=== PATIENT | female | born 1975 | race Caucasian/White ===

== ENCOUNTER → 2016-06-22 | Outpatient (CLI) | payer BC ==
[~2016-06-22] MED LIST: AMOX875T PO; CALC500C3 PO; DTR5 PO; HYDR-5688 PO; LACTCHW3 PO; MTR600X PO; OXYC-643 PO; PEDICHW50 PO; PHEN-1043 PO; POLY335019 PO; SULF800T23 PO
--- NOTE | 2016-06-22 13:54 | DIAGNOSTIC IMAGING REPORT ---
ABDOMINAL ULTRASOUND, RIGHT UPPER QUADRANT HISTORY: Right upper quadrant and epigastric abdominal pain.. COMPARISON: None. FINDINGS: Pancreas: The pancreas demonstrates a normal echotexture. Liver: Unremarkable. Gallbladder: Multiple small gallstones which almost completely fill the gallbladder. Gallbladder wall is normal in thickness. CBD: 6 mm. Right kidney: No hydronephrosis. IMPRESSION: Multiple gallstones. No gallbladder wall thickening. Electronically signed by: Rober Vazquez M.D. 06/22/2016 1:52 PM Dictated Date/Time: 06/22/2016 1:50 PM
== END | disposition home or self-care (01) ==
LOC: C.ULTR 13:16
PROVIDERS: ATTEND Family Medicine
DX: R10.13 Epigastric pain (principal); K80.20 Calculus of gallbladder without cholecystitis without obstruction

== ENCOUNTER 2016-07-05 14:59 | Emergency (ER) | payer BC ==
[~2016-07-05 14:59] MED LIST changes: -AMOX875T PO; -DTR5 PO; -HYDR-5688 PO; -LACTCHW3 PO; -PHEN-1043 PO; -POLY335019 PO; -SULF800T23 PO
[2016-07-05] MEDS ORDERED: SULF800T23 PO (16:15)
[2016-07-05] MEDS ORDERED: ONDANSETRON INJ 2 MG/ML 2 ML VIAL IV PRN (19:15)
[2016-07-05] MEDS ORDERED: TAMSULOSIN HCL 0.4 MG CAP PO ONE (19:15)
[2016-07-05] MEDS ORDERED: SODIUM CHLORIDE 0.9% 1000ML 1,000 ML IV SCH (19:15)
[2016-07-05] MEDS ORDERED: MoRPHine SULFATE 4 MG/ML 1 ML CARP\\VIAL IV PRN (19:15)
[2016-07-06] MEDS ORDERED: TAMSULOSIN HCL 0.4 MG CAP PO SCH (09:00)
[2016-07-08] MEDS ORDERED: HYDR-5688 PO (09:53)
[2016-07-08] MEDS ORDERED: DTR5 PO (09:53)
[2016-07-08] MEDS ORDERED: PHEN-1043 PO (09:53)
[2016-07-08] MEDS ORDERED: POLY335019 PO (09:53)
[2016-07-08] MEDS ORDERED: LACTCHW3 PO (09:53)
[2016-07-08] MEDS ORDERED: AMOX875T PO (09:53)
== END 2016-07-05 15:33 | disposition left against medical advice (07) ==
LOC: C.EDB 15:09
DX: N23 Unspecified renal colic (principal); R11.10 Vomiting, unspecified; R06.02 Shortness of breath; R39.9 Unspecified symptoms and signs involving the genitourinary system

== ENCOUNTER 2016-07-05 15:29 | Inpatient (IN) | payer BC ==
[~2016-07-05] VITALS: Ht 167.6 cm; Wt 95.8 kg
[2016-07-05] MEDS ORDERED: SODIUM CHLORIDE 0.9% 1000ML 1,000 ML IV STA (15:33)
[2016-07-05 16:04] LABS: BASO % 0.1 %; BASO ABS # 0.02 K/uL (0-0.2); COMPLETE YES; EOS % 0.4 %; HEMATOCRIT 38.2 % (37-47); IG% 0.3 %; LYMPH % 7.9 %; LYMPH ABS # 1.25 K/uL (1.2-3.4); MEAN CELL VOLUME 90.5 fL (80-100); MEAN CORPUSCULAR HEMOGLOBIN 30.8 pg (25-34); MEAN PLATELET VOLUME 11.1 fL (7.4-10.4); NEUT % 85.3 %; PLATELET COUNT 229 K/uL (130-400); RED BLOOD COUNT 4.22 M/uL (4.2-5.4); WHITE BLOOD COUNT 15.74 K/uL (4.8-10.8)
--- NOTE | 2016-07-05 16:13 | DIAGNOSTIC IMAGING REPORT ---
ABDOMEN AND PELVIS CT WITHOUT CONTRAST CT DOSE: 932.55 mGycm HISTORY: Flank pain left flank pain, vomiting TECHNIQUE: Multiaxial CT images of the abdomen and pelvis were performed without the use of intravenous and oral contrast according to the standard department stone protocol. COMPARISON STUDY: None. FINDINGS: Lung bases are clear. There is a 6 x 4 mm obstructing calculus proximal left ureter. There are mild left hydronephrosis changes. Right kidney is negative for hydronephrosis. Gallstones are present within the gallbladder lumen. Liver spleen pancreas are unremarkable. Bowel pattern is considered nonobstructive. Bladder is midline. Uterus is anteflexed. IMPRESSION: 6 x 4 mm obstructing proximal left ureteral calculus. Electronically signed by: Kirill Ivory M.D. 07/05/2016 4:12 PM Dictated Date/Time: 07/05/2016 4:09 PM
[2016-07-05] MEDS ORDERED: SULF800T23 PO (16:15)
[2016-07-05 16:29] LABS: CALCIUM 8.8 mg/dl (8.5-10.1); CREATININE 0.95 mg/dl (0.60-1.20); POTASSIUM 3.4 mmol/L (3.5-5.1)
[2016-07-05 16:31] LABS: ALB/GLOB RATIO 1.1 (0.9-2)
[2016-07-05 17:55] LABS: URINE APPEARANCE CLOUDY (CLEAR); URINE BILIRUBIN NEG (NEG); URINE COLOR DK YELLOW; URINE NITRITE NEG (NEG); URINE SPECIFIC GRAVITY 1.028 (1.000-1.030); UROBILINOGEN NEG (NEG); ZZUR CULT IF INDIC CLEAN CATCH YES
[2016-07-05 18:00] LABS: MANUAL MICROSCOPIC REQUIRED? NO; REVIEW REQ? NO
[2016-07-05] MEDS ORDERED: MoRPHine SULFATE 4 MG/ML 1 ML CARP\\VIAL IV STA (18:25)
[2016-07-05] MEDS ORDERED: CEFTRIAXONE SOD INJ 1 GM ADDVIAL IV STA (18:25)
[2016-07-05] MEDS ORDERED: POTASSIUM CHLORIDE 10 MEQ TABCR PO STA (19:26)
[2016-07-05] MEDS ORDERED: TAMSULOSIN HCL 0.4 MG CAP PO ONE (19:30)
[2016-07-05 19:47] VITALS: BP 111/76; PULSE 87; TEMP 36.7; O2SAT 99; Ht 167.6 cm; Wt 95.8 kg
[2016-07-05] MEDS: SODIUM CHLORIDE 0.9% 1000ML 1,000 ML IV SCH (21:08)
--- NOTE | 2016-07-05 21:51 | HISTORY & PHYSICAL EXAMINATION ---
DATE OF ADMISSION: 07/05/2016 CHIEF COMPLAINT: Left abdominal pain. HISTORY OF PRESENT ILLNESS: This is a 40-year-old female who comes to Emergency Room a second time today because of the significant abdominal pain. Yesterday evening, she started having this abdominal pain located at the left lower quadrant and today she came to Emergency Room first and then a second time because her pain was not well controlled. Recently she was started on Bactrim because of UTI which she was still taking up to today. She describes her pain as spasmodic, sharp, about 4/10, radiating down to her groin. REVIEW OF SYSTEMS: Negative except as above. Ten out of 14 systems were reviewed. PAST MEDICAL HISTORY: There is no past medical history. SOCIAL HISTORY: Does not smoke, does not drink, does not use drugs. FAMILY HISTORY: Coronary artery disease. PHYSICAL EXAMINATION: VITAL SIGNS: Temperature 36.7, pulse 69, respirations 14, blood pressure 111/62, 99% on room air. GENERAL: Not in acute distress. HEENT: Normocephalic, atraumatic. PERRLA, EOMI. Mouth moist, no lesions. NECK: No JVD. Trachea midline. Thyroid is not enlarged. LUNGS: Clear to auscultation bilateral. No wheezes, no rhonchi. HEART: S1, S2. RRR. ABDOMEN: Soft, tender to palpation in left lower quadrant. Bowel sounds present bilateral. SKIN: No rash. No jaundice. LYMPHATIC: No pathological lymphadenopathy. NEUROLOGICAL: Cranial nerves II-XII are intact. Motor sensory normal. EXTREMITIES: No clubbing, cyanosis or edema. LABS: White count of 15.7, otherwise normal CBC. BMP: Sodium 143, potassium 3.4, chloride 109, carbon dioxide 21, BUN 10, creatinine 0.9 with glucose of 105, otherwise AST, ALT normal. Urinalysis 3+ ketones, occult blood, moderate leukocyte esterase, more than 30 white blood cells and red blood cells, 5-10 epithelial cells with negative bacteria, negative urinary test. CT abdomen and pelvis showed 6 x 4 mm obstructing proximal left ureteral calculus. ASSESSMENT AND PLAN: This is a 40-year-old female who comes with ureter stone with significant abdominal pain. 1. A 6 x 4 mm obstructing proximal left ureteral calculus. Admit to general medical floor. Consult urology for possible stent placement tomorrow. Start normal saline 150 mL per hour, ketorolac 15 mg IV q. 6 hours p.r.n. pain, Zofran p.r.n. nausea. Start Flomax, ceftriaxone 1 g IV q. 24 hours. Strain urine. 2. Hypokalemia, replace potassium orally. 3. Deep venous thrombosis prophylaxis is not required. The patient is a full code. Time spent during this admission, 40 minutes.
[2016-07-05 23:09] VITALS: BP 87/55; PULSE 72; TEMP 36.8; O2SAT 98
[2016-07-05 23:10] VITALS: BP 80/46; PULSE 83
[2016-07-05 23:56] VITALS: BP 97/55
--- NOTE | 2016-07-06 01:21 | EMERGENCY ROOM VISIT NOTE ---
History First contact with patient: 15:31 Chief Complaint: KIDNEY STONE Stated Complaint: URETERAL STONE History of Present Illness The patient is a 40 year old female who presents to the Emergency Room with complaints of left flank pain which began suddenly early this morning. The patient was that she had a sudden onset of left back pain which radiated into her left flank starting this morning. She has had multiple episodes of vomiting. She rates the initial pain a 10/10. The patient had been waiting in the waiting room here for 2 hours, when she decided to see her primary care provider. She was there and was given 60 mg Toradol IM and sent here by ALS due to her discomfort. She received 4 mg Zofran IV and 10 mg morphine IV en route. She states that she was recently treated for a urinary tract infection. She denies any associated abdominal pain, urinary symptoms, chest pain, shortness of breath or changes in bowel movements. She denies any vaginal discharge or bleeding. She denies previous abdominal surgery. She states that her pain has completely resolved at this time. Review of Systems A complete 10-point Review of Systems was discussed with the patient, with pertinent positives and negatives listed in the History of Present Illness. All remaining Review of Systems questions can be considered negative unless otherwise specified. Past Medical/Surgical History Medical Problems: (1) Ureteral stone Social History Smoking Status: Current Every Day Smoker Current/Historical Medications Scheduled Sulfa/Trimethoprim (Bactrim Ds 800MG/160MG), 1 TAB PO BID Allergies Coded Allergies: No Known Allergies (Unverified , 07/05/16) Physical Exam Vital Signs Date Time Temp Pulse Resp B/P Pulse Ox O2 Delivery O2 Flow Rate FiO2 07/05/16 17:38 69 14 111/62 99 Room Air 07/05/16 15:41 36.7 84 17 131/71 100 Room Air Pain Rating (0-10): 3.0 Physical Exam VITALS: Vitals are noted on the nurse's note and reviewed by myself. Vital signs stable. GENERAL: This is a 40-year-old female, in no acute distress, nondiaphoretic, well-developed well-nourished. SKIN: Capillary reflex less than 2 seconds. HEENT: Normocephalic. PERRLA. EOMI. Nares patent. Mucous membranes moist. Neck is supple without nuchal rigidity. HEART: Regular rate and rhythm without murmurs gallops or rubs. LUNGS: Clear to auscultation bilaterally without wheezes, rales or rhonchi. No retractions or accessory muscle use. ABDOMEN: Positive bowel sounds x 4. Soft, nontender to palpation. MUSCULOSKELETAL: Mild left CVA tenderness. NEURO: Patient was alert and oriented to person place and time. Medical Decision & Procedures ER Provider Diagnostic Interpretation: ABDOMEN AND PELVIS CT WITHOUT CONTRAST CT DOSE: 932.55 mGycm HISTORY: Flank pain left flank pain, vomiting TECHNIQUE: Multiaxial CT images of the abdomen and pelvis were performed without the use of intravenous and oral contrast according to the standard department stone protocol. COMPARISON STUDY: None. FINDINGS: Lung bases are clear. There is a 6 x 4 mm obstructing calculus proximal left ureter. There are mild left hydronephrosis changes. Right kidney is negative for hydronephrosis. Gallstones are present within the gallbladder lumen. Liver spleen pancreas are unremarkable. Bowel pattern is considered nonobstructive. Bladder is midline. Uterus is anteflexed. IMPRESSION: 6 x 4 mm obstructing proximal left ureteral calculus. Laboratory Results 07/05/16 15:45 Red Blood Count 4.22, Mean Corpuscular Volume 90.5, Mean Corpuscular Hemoglobin 30.8, Mean Corpuscular Hemoglobin Concent 34.0, Mean Platelet Volume 11.1, Neutrophils (%) (Auto) 85.3, Lymphocytes (%) (Auto) 7.9, Monocytes (%) (Auto) 6.0, Eosinophils (%) (Auto) 0.4, Basophils (%) (Auto) 0.1, Neutrophils # (Auto) 13.42, Lymphocytes # (Auto) 1.25, Monocytes # (Auto) 0.95, Eosinophils # (Auto) 0.06, Basophils # (Auto) 0.02 07/05/16 15:45 Test 07/05/16 15:45 07/05/16 17:25 White Blood Count 15.74 K/uL (4.8-10.8) Red Blood Count 4.22 M/uL (4.2-5.4) Hemoglobin 13.0 g/dL (12.0-16.0) Hematocrit 38.2 % (37-47) Mean Corpuscular Volume 90.5 fL (80-100) Mean Corpuscular Hemoglobin 30.8 pg (25-34) Mean Corpuscular Hemoglobin Concent 34.0 g/dl (32-36) Platelet Count 229 K/uL (130-400) Mean Platelet Volume 11.1 fL (7.4-10.4) Neutrophils (%) (Auto) 85.3 % Lymphocytes (%) (Auto) 7.9 % Monocytes (%) (Auto) 6.0 % Eosinophils (%) (Auto) 0.4 % Basophils (%) (Auto) 0.1 % Neutrophils # (Auto) 13.42 K/uL (1.4-6.5) Lymphocytes # (Auto) 1.25 K/uL (1.2-3.4) Monocytes # (Auto) 0.95 K/uL (0.11-0.59) Eosinophils # (Auto) 0.06 K/uL (0-0.5) Basophils # (Auto) 0.02 K/uL (0-0.2) RDW Standard Deviation 46.2 fL (36.4-46.3) RDW Coefficient of Variation 13.8 % (11.5-14.5) Immature Granulocyte % (Auto) 0.3 % Immature Granulocyte # (Auto) 0.04 K/uL (0.00-0.02) Anion Gap 13.0 mmol/L (3-11) Est Creatinine Clear Calc Drug Dose 90.2 ml/min Estimated GFR () 87.4 Estimated GFR (Non- 75.4 BUN/Creatinine Ratio 11.0 (10-20) Calcium Level 8.8 mg/dl (8.5-10.1) Total Bilirubin 0.5 mg/dl (0.2-1) Aspartate Amino Transf (AST/SGOT) 8 U/L (15-37) Alanine Aminotransferase (ALT/SGPT) 21 U/L (12-78) Alkaline Phosphatase 81 U/L (45-117) Total Protein 7.1 gm/dl (6.4-8.2) Albumin 3.7 gm/dl (3.4-5.0) Globulin 3.4 gm/dl (2.5-4.0) Albumin/Globulin Ratio 1.1 (0.9-2) Lipase 137 U/L (73-393) Urine Color DK YELLOW Urine Appearance CLOUDY (CLEAR) Urine pH 6.0 (4.5-7.5) Urine Specific [place] 1.028 (1.000-1.030) Urine Protein 1+ (NEG) Urine Glucose (UA) NEG (NEG) Urine Ketones 3+ (NEG) Urine Occult Blood 3+ (NEG) Urine Nitrite NEG (NEG) Urine Bilirubin NEG (NEG) Urine Urobilinogen NEG (NEG) Urine Leukocyte Esterase MODERATE (NEG) Urine WBC (Auto) >30 /hpf (0-5) Urine RBC (Auto) >30 /hpf (0-4) Urine Hyaline Casts (Auto) 1-5 /lpf (0-5) Urine Epithelial Cells (Auto) 5-10 /lpf (0-5) Urine Bacteria (Auto) NEG (NEG) Urine Test NEG (NEG) Medications Administered Medications (Trade) Dose Ordered Sig/Omari Route Start Time Stop Time Status Last Admin Dose Admin Sodium Chloride (Nss 1000ml) 1,000 ml @ 999 mls/hr Q1H1M STAT IV 07/05/16 15:33 07/05/16 16:33 DC 07/05/16 15:47 999 MLS/HR Morphine Sulfate (MoRPHine SULFATE INJ) 4 mg NOW STAT IV 07/05/16 18:25 07/05/16 18:26 DC 07/05/16 18:30 4 MG Ceftriaxone Sodium (Rocephin Inj) 1 gm NOW STAT IV 07/05/16 18:25 07/05/16 18:26 DC 07/05/16 18:31 1 GM Medical Decision Differential diagnosis includes renal calculus, pyelonephritis, gastroenteritis , colitis, pancreatitis, musculoskeletal pain, herpes zoster, among others. The patient was evaluated as above. Labs were drawn and IV access was obtained. Imaging studies were performed and read by radiology as above. The patient was medicated as above. The patient was reassessed multiple times during their stay in the emergency department and remained in stable condition. The patient is a 40-year-old female who presents today complaining of left flank pain. Labs revealed a moderate leukocytosis consistent with vomiting. CT of the abdomen and pelvis did show an obstructing left ureteral stone with mild hydronephrosis. Urinalysis was possibly suggestive of infection, with the presence of leukocyte esterase and white blood cells. The patient was given 1 g Rocephin IV. Urine was negative. The patient was informed of all findings. Initially, she did prefer to be discharged home, but on reevaluation the patient's pain was returning and she requested admission for pain control. I do think this is reasonable given the size of the patient's stone and the amount of narcotics she has received so far. Case was discussed with the [facility], Dr. Reis, who agreed to evaluate the patient for admission. Impression Primary Impression: Left ureteral calculus Departure Information Dispostion Still a Patient Condition GOOD Referrals Seema MendozaPYovani (PCP) Forms HOME CARE DOCUMENTATION FORM, IMPORTANT VISIT INFORMATION Patient Instructions My [facility]
[2016-07-06] MEDS: ONDANSETRON INJ 2 MG/ML 2 ML VIAL IV PRN ×2 (03:04→20:02)
[2016-07-06] MEDS: KETOROLAC TROMETHAMINE 15 MG/ML VIAL IV PRN ×3 (03:04→21:12)
[2016-07-06] MEDS: SODIUM CHLORIDE 0.9% 1000ML 1,000 ML IV SCH ×4 (03:15→23:07)
[2016-07-06] MEDS: MoRPHine SULFATE 4 MG/ML 1 ML CARP\\VIAL IV PRN ×2 (04:35→07:58)
[2016-07-06 08:01] VITALS: BP 114/62; PULSE 83; TEMP 36.9; O2SAT 96
[2016-07-06 08:01] LABS: BASO % 0.1 %; BASO ABS # 0.01 K/uL (0-0.2); COMPLETE YES; EOS % 0.4 %; HEMATOCRIT 31.2 % (37-47); IG% 0.2 %; LYMPH % 10.9 %; LYMPH ABS # 1.15 K/uL (1.2-3.4); MEAN CELL VOLUME 91.2 fL (80-100); MEAN CORPUSCULAR HEMOGLOBIN 30.1 pg (25-34); MEAN PLATELET VOLUME 11.2 fL (7.4-10.4); NEUT % 78.4 %; PLATELET COUNT 180 K/uL (130-400); RED BLOOD COUNT 3.42 M/uL (4.2-5.4); WHITE BLOOD COUNT 10.56 K/uL (4.8-10.8)
--- NOTE | 2016-07-06 08:10 | Progress Note ---
Subjective Date of Service: Jul 06, 2016. Subjective Pt evaluation today including: conversation w/ patient, physical exam, chart review, lab review, review of studies, conversation w/ outplacement consultant, review of inpatient medication list Still complaining of saul pain, localized in the left side, 7 out of 10, need to frequent IV morphine, was having mild nausea , no fever and chill Problem List Medical Problems: (1) Left ureteral calculus Status: Acute Review of Systems Constitutional: No chills, No fatigue, No fever, No problem reported, No sweats , No weakness, No weight loss Eyes: No diplopia, No discharge, No eye pain, No redness, No worsening of vision ENT: No dental problems, No hearing loss, No nasal symptoms, No sore throat, No tinnitus, No trouble swallowing, No unusual epistaxis Respiratory: No cough, No dyspnea at rest, No dyspnea on exertion, No hemoptysis, No shortness of breath, No sputum, No wheezing Cardiac: No PND, No chest pain, No claudication, No edema, No orthopnea, No palpitations Abdomen: + nausea, + pain, No constipation, No diarrhea, No vomiting Musculoskeletal: No calf pain, No joint pain, No muscle pain, No swelling Female : No abnormal vaginal bleeding, No dysuria, No hematuria, No incontinence, No urinary frequency, No vaginal discharge Neurologic: No balance problems, No memory loss, No numbness/tingling, No paralysis, No vertigo, No weakness Psychiatric: No anhedonism, No anxiety, No depression symptoms, No insomnia, No substance abuse Heme: No abnormal bleeding/bruising, No clotting problems, No night sweats, No swollen lymph nodes Endo: No excessive thirst, No excessive urination, No fatigue Skin: No bleeding, No color change, No itch, No new/changing skin lesions, No rash Objective Vital Signs Date Time Temp Pulse Resp B/P Pulse Ox O2 Delivery O2 Flow Rate FiO2 07/06/16 08:01 36.9 83 15 114/62 96 Room Air 07/05/16 23:56 Room Air 07/05/16 23:56 97/55 07/05/16 23:10 83 80/46 07/05/16 23:09 36.8 72 15 87/55 98 Room Air 07/05/16 19:47 36.7 87 16 111/76 99 Room Air 07/05/16 19:39 87 16 111/76 99 Room Air 07/05/16 17:38 69 14 111/62 99 Room Air 07/05/16 15:41 36.7 84 17 131/71 100 Room Air Physical Exam General Appearance: WD/WN, no apparent distress, + obese Eyes: normal inspection, PERRL, EOMI, sclerae normal ENT: normal ENT inspection, hearing grossly normal, pharynx normal Neck: supple, no adenopathy, thyroid normal, no JVD, no carotid bruits, trachea midline Respiratory/Chest: chest non-tender, lungs clear, normal breath sounds, no respiratory distress, no accessory muscle use Cardiovascular: regular rate, rhythm, no edema, no gallop, no JVD, no murmur Abdomen: normal bowel sounds, soft, no organomegaly, no pulsatile mass, + tenderness (left flank) Extremities: normal range of motion, non-tender, normal inspection, no pedal edema, no calf tenderness, normal capillary refill, pelvis stable Neurologic/Psychiatric: 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, no motor/sensory deficits, alert, normal mood/affect, oriented x 3 Skin: normal color, warm/dry, no rash Lymphatic: no adenopathy Laboratory Results Last 24 Hours Test 07/05/16 15:45 07/05/16 17:25 07/06/16 07:35 White Blood Count 15.74 K/uL 10.56 K/uL Red Blood Count 4.22 M/uL 3.42 M/uL Hemoglobin 13.0 g/dL 10.3 g/dL Hematocrit 38.2 % 31.2 % Mean Corpuscular Volume 90.5 fL 91.2 fL Mean Corpuscular Hemoglobin 30.8 pg 30.1 pg Mean Corpuscular Hemoglobin Concent 34.0 g/dl 33.0 g/dl Platelet Count 229 K/uL 180 K/uL Mean Platelet Volume 11.1 fL 11.2 fL Neutrophils (%) (Auto) 85.3 % 78.4 % Lymphocytes (%) (Auto) 7.9 % 10.9 % Monocytes (%) (Auto) 6.0 % 10.0 % Eosinophils (%) (Auto) 0.4 % 0.4 % Basophils (%) (Auto) 0.1 % 0.1 % Neutrophils # (Auto) 13.42 K/uL 8.28 K/uL Lymphocytes # (Auto) 1.25 K/uL 1.15 K/uL Monocytes # (Auto) 0.95 K/uL 1.06 K/uL Eosinophils # (Auto) 0.06 K/uL 0.04 K/uL Basophils # (Auto) 0.02 K/uL 0.01 K/uL RDW Standard Deviation 46.2 fL 46.8 fL RDW Coefficient of Variation 13.8 % 14.0 % Immature Granulocyte % (Auto) 0.3 % 0.2 % Immature Granulocyte # (Auto) 0.04 K/uL 0.02 K/uL Sodium Level 143 mmol/L Potassium Level 3.4 mmol/L Chloride Level 109 mmol/L Carbon Dioxide Level 21 mmol/L Anion Gap 13.0 mmol/L Blood Urea Nitrogen 10 mg/dl Creatinine 0.95 mg/dl Est Creatinine Clear Calc Drug Dose 90.2 ml/min Estimated GFR () 87.4 Estimated GFR (Non- 75.4 BUN/Creatinine Ratio 11.0 Random Glucose 105 mg/dl Calcium Level 8.8 mg/dl Total Bilirubin 0.5 mg/dl Aspartate Amino Transf (AST/SGOT) 8 U/L Alanine Aminotransferase (ALT/SGPT) 21 U/L Alkaline Phosphatase 81 U/L Total Protein 7.1 gm/dl Albumin 3.7 gm/dl Globulin 3.4 gm/dl Albumin/Globulin Ratio 1.1 Lipase 137 U/L Urine Color DK YELLOW Urine Appearance CLOUDY Urine pH 6.0 Urine Specific [place] 1.028 Urine Protein 1+ Urine Glucose (UA) NEG Urine Ketones 3+ Urine Occult Blood 3+ Urine Nitrite NEG Urine Bilirubin NEG Urine Urobilinogen NEG Urine Leukocyte Esterase MODERATE Urine WBC (Auto) >30 /hpf Urine RBC (Auto) >30 /hpf Urine Hyaline Casts (Auto) 1-5 /lpf Urine Epithelial Cells (Auto) 5-10 /lpf Urine Bacteria (Auto) NEG Urine Test NEG Assessment and Plan 40-year-old female admitted on 07/05/2016 because of ureter stone with significant abdominal pain. A 6 x 4 mm obstructing proximal left ureteral calculus. Stable, Continue IV fluid, pain control, urology seeing patient, possible cystoscopy scope tomorrow Continue normal saline 150 mL per hour, ketorolac 15 mg IV q. 6 hours p.r.n. pain, Zofran p.r.n. nausea. Start Flomax, ceftriaxone 1 g IV q. 24 hours. Change morphine to 4 mg every 4 as needed for the pain Leukocytosis upon admission, no signs of SIRS/sepsis, is getting IV Rocephin, will continue for now, follow-up urine culture and sensitivity Hypokalemia, replace potassium orally, will follow-up lab Deep venous thrombosis prophylaxis will be SCD, we'll ordered heparin per duct because of her obesity, and now most of the time in bed full code. Continued [facility] stay due to: multiple IV medications needed Discharge planning: home
[2016-07-06 08:25] VITALS: O2SAT 96
[2016-07-06 08:34] LABS: BUN/CREATININE RATIO 10.9 (10-20); CALCIUM 7.7 mg/dl (8.5-10.1); CREATININE 1.2 mg/dl (0.60-1.20); POTASSIUM 3.7 mmol/L (3.5-5.1)
[2016-07-06] MEDS ORDERED: NURSING VERBAL MED ORDER ONE (08:45)
[2016-07-06] MEDS ORDERED: MoRPHine SULFATE 4 MG/ML 1 ML CARP\\VIAL IV PRN ×2 (09:00→12:00)
--- NOTE | 2016-07-06 09:13 | Urology Consultation ---
History General Date of Service: Jul 06, 2016. Chief Complaint: left ureteral stone Primary Care Physician: Seema Mendoza History of Present Illness 40 yo female admitted with left flank pain and n/v. CT scan shows a 7mm proximal left ureteral stone. She has no previous hx of stones. Her pain started yesterday at 0300 and was accompanied by n/v. She denies any f/ c with this. She thought she had the flu. Currently her pain is a 5-6/10 this AM. Denies n/v, dysuria, or hematuria currently. She is currently afebrile. White count has normalized overnight. Cr is normal. UC&S pending. Imaging Imaging: CT (7mm proximal left ureteral stone) Laboratory Last 24 Hours Test 07/05/16 15:45 07/05/16 17:25 07/06/16 07:35 07/06/16 08:38 White Blood Count 15.74 K/uL 10.56 K/uL Red Blood Count 4.22 M/uL 3.42 M/uL Hemoglobin 13.0 g/dL 10.3 g/dL Hematocrit 38.2 % 31.2 % Mean Corpuscular Volume 90.5 fL 91.2 fL Mean Corpuscular Hemoglobin 30.8 pg 30.1 pg Mean Corpuscular Hemoglobin Concent 34.0 g/dl 33.0 g/dl Platelet Count 229 K/uL 180 K/uL Mean Platelet Volume 11.1 fL 11.2 fL Neutrophils (%) (Auto) 85.3 % 78.4 % Lymphocytes (%) (Auto) 7.9 % 10.9 % Monocytes (%) (Auto) 6.0 % 10.0 % Eosinophils (%) (Auto) 0.4 % 0.4 % Basophils (%) (Auto) 0.1 % 0.1 % Neutrophils # (Auto) 13.42 K/uL 8.28 K/uL Lymphocytes # (Auto) 1.25 K/uL 1.15 K/uL Monocytes # (Auto) 0.95 K/uL 1.06 K/uL Eosinophils # (Auto) 0.06 K/uL 0.04 K/uL Basophils # (Auto) 0.02 K/uL 0.01 K/uL RDW Standard Deviation 46.2 fL 46.8 fL RDW Coefficient of Variation 13.8 % 14.0 % Immature Granulocyte % (Auto) 0.3 % 0.2 % Immature Granulocyte # (Auto) 0.04 K/uL 0.02 K/uL Sodium Level 143 mmol/L 143 mmol/L Potassium Level 3.4 mmol/L 3.7 mmol/L Chloride Level 109 mmol/L 114 mmol/L Carbon Dioxide Level 21 mmol/L 19 mmol/L Anion Gap 13.0 mmol/L 10.0 mmol/L Blood Urea Nitrogen 10 mg/dl 13 mg/dl Creatinine 0.95 mg/dl 1.20 mg/dl Est Creatinine Clear Calc Drug Dose 90.2 ml/min 71.4 ml/min Estimated GFR () 87.4 65.9 Estimated GFR (Non- 75.4 56.9 BUN/Creatinine Ratio 11.0 10.9 Random Glucose 105 mg/dl 97 mg/dl Calcium Level 8.8 mg/dl 7.7 mg/dl Total Bilirubin 0.5 mg/dl Aspartate Amino Transf (AST/SGOT) 8 U/L Alanine Aminotransferase (ALT/SGPT) 21 U/L Alkaline Phosphatase 81 U/L Total Protein 7.1 gm/dl Albumin 3.7 gm/dl Globulin 3.4 gm/dl Albumin/Globulin Ratio 1.1 Lipase 137 U/L Urine Color DK YELLOW Urine Appearance CLOUDY Urine pH 6.0 Urine Specific [place] 1.028 Urine Protein 1+ Urine Glucose (UA) NEG Urine Ketones 3+ Urine Occult Blood 3+ Urine Nitrite NEG Urine Bilirubin NEG Urine Urobilinogen NEG Urine Leukocyte Esterase MODERATE Urine WBC (Auto) >30 /hpf Urine RBC (Auto) >30 /hpf Urine Hyaline Casts (Auto) 1-5 /lpf Urine Epithelial Cells (Auto) 5-10 /lpf Urine Bacteria (Auto) NEG Urine Test NEG Problem List Medical Problems: (1) Left ureteral calculus Status: Acute Past History no pertinent history Past Surgical History: no surgical history Family History CAD Social History Hx Tobacco Use In Past Year?: No Smoking: non-smoker Alcohol: no current use Drug use: none Marital status: Housing status: lives with family Occupation status: employed Immunizations History of Influenza Vaccine: Unknown History of Tetanus Vaccine?: Yes Tetanus Immunization Date: Dec 16, 2012 Allergies Coded Allergies: No Known Allergies (Unverified , 07/05/16) Medications Home Medications: Home Meds and Scripts Medications Dose Route/Sig Max Daily Dose Days Date Category Dose Instructions Bactrim Ds 800MG/160MG (Trimethoprim/Sulfamethoxazole) Tab 1 Tab PO BID 07/05/16 Reported TAKE DIRECTED UNTIL GONE Inpatient Medications: Current Inpatient Medications Medications (Trade) Dose Ordered Sig/Omari Route Start Time Stop Time Status Last Admin Dose Admin Ondansetron HCl 4 mg 4 mg Q6H PRN IV 07/05/16 19:30 08/04/16 19:29 07/06/16 03:04 4 MG Sodium Chloride (Nss 1000ml) 1,000 ml @ 150 mls/hr Q6H40M IV 07/05/16 20:15 08/04/16 19:29 07/06/16 03:15 150 MLS/HR Tamsulosin HCl (Flomax Cap) 0.4 mg QAM PO 07/06/16 09:00 08/05/16 08:59 Ketorolac Tromethamine 15 mg 15 mg Q6H PRN IV 07/05/16 19:30 07/10/16 19:29 07/06/16 03:04 15 MG Ceftriaxone Sodium/Dextrose (Rocephin Inj/ Dextrose Add-[place] 50ML) 50 ml @ 100 mls/hr Q24H IV 07/06/16 18:00 07/15/16 17:59 Heparin Sodium (Porcine) (Heparin Sq 5000 Unit/0.5ml) 5,000 unit Q12 SQ 07/06/16 09:00 08/05/16 08:59 UNV Morphine Sulfate (MoRPHine SULFATE INJ) 4 mg Q4H PRN IV 07/06/16 09:00 07/20/16 08:59 Review of Systems Review of Systems Constitutional: No chills, No fever Eyes: No double vision Neurological: No dizzy Endocrine: No excessive thirst Gastrointestinal: + abdominal pain (left flank ), + see HPI, No nausea, No vomiting Cardiovascular: No chest pain Respiratory: No shortness of breath Skin: No rash Musculoskeletal: + back pain (left low back ) Female : No blood in urine, No painful urination Physical Exam Vital Signs: Vital Signs Past 12 Hours Date Time Temp Pulse Resp B/P Pulse Ox O2 Delivery O2 Flow Rate FiO2 07/06/16 08:37 Room Air 07/06/16 08:25 96 Room Air 07/06/16 08:01 36.9 83 15 114/62 96 Room Air 07/05/16 23:56 Room Air 07/05/16 23:56 97/55 07/05/16 23:10 83 80/46 07/05/16 23:09 36.8 72 15 87/55 98 Room Air Physical Exam: General Appearance: no apparent distress Eyes: bilateral eyes normal inspection ENT: hearing grossly normal Neck: no JVD Respiratory/Chest: no respiratory distress, no accessory muscle use Cardiovascular: no JVD Extremities: normal inspection Neurologic/Psychiatric: alert, normal mood/affect, oriented x 3 Skin: normal color Assessment & Plan Assessment & Plan Treatment Planned: cystoscopy w/ stent A/P: 7mm proximal left ureteral stone AFVSS. No evidence of sepsis requiring immediate intervention at this time. Continue supportive management with IVF, pain control, and Flomax. Will plan for OR tomorrow for cysto and left ureteral stent placement if pain persists. KUB and Labs in AM. Will provide a diet today. NPO after midnight. Strain all urine. Thanks for the consult. Will continue to follow along with primary service at this time.
[2016-07-06] MEDS: TAMSULOSIN HCL 0.4 MG CAP PO SCH (10:07)
[2016-07-06 10:10] LABS: PROTHROMBIN TIME (PATIENT) 10.7 SECONDS (9.0-12.0)
[2016-07-06] MEDS: HEPARIN SOD 5000 UNIT/0.5 ML CARP SQ SCH ×2 (12:12→20:05)
--- NOTE | 2016-07-06 14:04 | Anesthesiology Progress Note ---
Anesthesia Progress Note Date of Service Jul 06, 2016. Progress Notes 39 year old female. admitted with obstructing ureteral stone. Pt BMI 32, otherwise healthy. Anesthesia plan discussed with pt and at bedside. Denies further questions. INformed consent obtained.
[2016-07-06 15:49] VITALS: BP 88/53; PULSE 68; TEMP 37.2; O2SAT 98
[2016-07-06 16:30] VITALS: O2SAT 98
[2016-07-06] MEDS: CEFTRIAXONE SOD INJ 1 GM in DEXTROSE 5% ADD-VANTAGE 50ML 50 ML IV SCH (18:08)
[2016-07-06 23:40] VITALS: BP 97/62; PULSE 73; TEMP 37.1; O2SAT 98
[2016-07-07] MEDS: SODIUM CHLORIDE 0.9% 1000ML 1,000 ML IV SCH ×3 (05:30→20:25)
[2016-07-07] MEDS ORDERED: CIPROFLOXACIN 400MG / 200ML D5W IV SCH (06:00)
[2016-07-07] MEDS: HEPARIN SOD 5000 UNIT/0.5 ML CARP SQ SCH ×2 (07:05→21:03)
[2016-07-07 07:06] LABS: BASO % 0.1 %; BASO ABS # 0.01 K/uL (0-0.2); COMPLETE YES; EOS % 1.2 %; HEMATOCRIT 29.3 % (37-47); IG% 0.1 %; LYMPH ABS # 1.69 K/uL (1.2-3.4); MEAN CELL VOLUME 91.6 fL (80-100); MEAN CORPUSCULAR HEMOGLOBIN 30.6 pg (25-34); MEAN CORPUSCULAR HGB CONC 33.4 g/dl (32-36); MEAN PLATELET VOLUME 11.1 fL (7.4-10.4); MONO % 12.8 %; NEUT % 63.8 %; PLATELET COUNT 165 K/uL (130-400); WHITE BLOOD COUNT 7.68 K/uL (4.8-10.8)
[2016-07-07 07:30] VITALS: BP 109/62; PULSE 84; TEMP 36.8; O2SAT 98
[2016-07-07 07:31] LABS: BUN/CREATININE RATIO 9.6 (10-20); CALCIUM 7.7 mg/dl (8.5-10.1); CREATININE 1.2 mg/dl (0.60-1.20); POTASSIUM 3.8 mmol/L (3.5-5.1)
--- NOTE | 2016-07-07 07:32 | DIAGNOSTIC IMAGING REPORT ---
CHEST 2 VIEWS ROUTINE CLINICAL HISTORY: PRE-OP preoperative evaluation COMPARISON STUDY: No previous studies for comparison. FINDINGS: Atelectasis right base. Lungs otherwise are clear. Diaphragms smooth. IMPRESSION: Platelike atelectasis right base. Otherwise negative study Electronically signed by: Kirill Ivory M.D. 07/07/2016 7:31 AM Dictated Date/Time: 07/07/2016 7:30 AM
--- NOTE | 2016-07-07 07:38 | DIAGNOSTIC IMAGING REPORT ---
KUB CLINICAL HISTORY: left ureteral stone COMPARISON STUDY: No previous studies for comparison. FINDINGS: Curvilinear calcification measuring 6 mm. Bowel pattern is nonobstructive. No additional urinary tract calcifications are appreciated. Multiple pelvic vascular calcifications. IMPRESSION: 6 mm proximal left ureteral calculus. Electronically signed by: Kirill Ivory M.D. 07/07/2016 7:37 AM Dictated Date/Time: 07/07/2016 7:36 AM
[2016-07-07] MEDS: KETOROLAC TROMETHAMINE 15 MG/ML VIAL IV PRN (07:58)
[2016-07-07] MEDS: TAMSULOSIN HCL 0.4 MG CAP PO SCH (07:58)
[2016-07-07] MEDS: ONDANSETRON INJ 2 MG/ML 2 ML VIAL IV PRN (07:58)
--- NOTE | 2016-07-07 08:05 | Progress Note ---
Subjective Date of Service: Jul 07, 2016. Subjective Pt evaluation today including: conversation w/ patient, chart review, lab review Voiding: no voiding problems 40 yo female with proximal left ureteral stone. Left flank pain persists 11/05 this morning. Denies n/v, dysuria, or hematuria. UC&S preliminarily negative. Labs stable. Reviewed KUB this morning. Stone persists in the proximal ureter. Problem List Medical Problems: (1) Left ureteral calculus Status: Acute Review of Systems Constitutional: No chills, No fever Respiratory: No shortness of breath Cardiac: No chest pain Abdomen: + pain (left flank 11/05), + see HPI, No nausea, No vomiting Female : No dysuria, No hematuria Heme: No abnormal bleeding/bruising Objective Vital Signs Date Time Temp Pulse Resp B/P Pulse Ox O2 Delivery O2 Flow Rate FiO2 07/07/16 07:30 36.8 84 16 109/62 98 Room Air 07/06/16 23:40 37.1 73 14 97/62 98 Room Air 07/06/16 23:10 Room Air 07/06/16 16:30 98 Room Air 07/06/16 15:49 37.2 68 16 88/53 98 Room Air 07/06/16 08:37 Room Air 07/06/16 08:25 96 Room Air 07/06/16 08:01 36.9 83 15 114/62 96 Room Air Physical Exam General Appearance: no apparent distress Eyes: normal inspection ENT: hearing grossly normal Neck: no JVD Respiratory/Chest: no respiratory distress, no accessory muscle use Cardiovascular: no JVD Extremities: normal inspection Neurologic/Psychiatric: alert, normal mood/affect, oriented x 3 Skin: normal color Laboratory Results Last 24 Hours Test 07/06/16 09:40 07/07/16 06:46 Prothrombin Time 10.7 SECONDS Prothromb Time International Ratio 1.0 White Blood Count 7.68 K/uL Red Blood Count 3.20 M/uL Hemoglobin 9.8 g/dL Hematocrit 29.3 % Mean Corpuscular Volume 91.6 fL Mean Corpuscular Hemoglobin 30.6 pg Mean Corpuscular Hemoglobin Concent 33.4 g/dl Platelet Count 165 K/uL Mean Platelet Volume 11.1 fL Neutrophils (%) (Auto) 63.8 % Lymphocytes (%) (Auto) 22.0 % Monocytes (%) (Auto) 12.8 % Eosinophils (%) (Auto) 1.2 % Basophils (%) (Auto) 0.1 % Neutrophils # (Auto) 4.90 K/uL Lymphocytes # (Auto) 1.69 K/uL Monocytes # (Auto) 0.98 K/uL Eosinophils # (Auto) 0.09 K/uL Basophils # (Auto) 0.01 K/uL RDW Standard Deviation 46.9 fL RDW Coefficient of Variation 14.0 % Immature Granulocyte % (Auto) 0.1 % Immature Granulocyte # (Auto) 0.01 K/uL Sodium Level 145 mmol/L Potassium Level 3.8 mmol/L Chloride Level 117 mmol/L Carbon Dioxide Level 20 mmol/L Anion Gap 8.0 mmol/L Blood Urea Nitrogen 12 mg/dl Creatinine 1.20 mg/dl Est Creatinine Clear Calc Drug Dose 71.4 ml/min Estimated GFR () 65.9 Estimated GFR (Non- 56.9 BUN/Creatinine Ratio 9.6 Random Glucose 96 mg/dl Calcium Level 7.7 mg/dl Magnesium Level 2.0 mg/dl Assessment and Plan A/P: 6mm proximal left ureteral stone AFVSS. Pt with persistent pain. Recommend cysto with left ureteral stent placement. Risks and benefits of the procedure discussed with the pt. All questions answered. Pt agrees to the procedure at this time. Consent obtained. Stone persists on KUB. Will likely plan for outpatient ESWL for definitive management of stone after stent placement. Possible d/c home later this evening after stent placement vs tomorrow morning if she is doing well. Will continue to follow along with primary service at this time. Continued [facility] stay due to: multiple IV medications needed Discharge planning: home
--- NOTE | 2016-07-07 13:58 | Progress Note ---
Subjective Date of Service: Jul 07, 2016. Subjective Pt evaluation today including: conversation w/ patient, physical exam, chart review, lab review, review of studies, conversation w/ home care consultant, review of inpatient medication list Continue have persistent left flank pain, sometimes nausea, no fever and chill Problem List Medical Problems: (1) Left ureteral calculus Status: Acute Review of Systems Constitutional: No chills, No fatigue, No fever, No problem reported, No sweats , No weakness, No weight loss Eyes: No diplopia, No discharge, No eye pain, No redness, No worsening of vision ENT: No dental problems, No hearing loss, No nasal symptoms, No sore throat, No tinnitus, No trouble swallowing, No unusual epistaxis Respiratory: No cough, No dyspnea at rest, No dyspnea on exertion, No hemoptysis, No shortness of breath, No sputum, No wheezing Cardiac: No PND, No chest pain, No claudication, No edema, No orthopnea, No palpitations Abdomen: + pain, No constipation, No diarrhea, No nausea, No vomiting Musculoskeletal: No calf pain, No joint pain, No muscle pain, No swelling Female : No abnormal vaginal bleeding, No dysuria, No hematuria, No incontinence, No urinary frequency, No vaginal discharge Neurologic: No balance problems, No memory loss, No numbness/tingling, No paralysis, No vertigo, No weakness Psychiatric: No anhedonism, No anxiety, No depression symptoms, No insomnia, No substance abuse Heme: No abnormal bleeding/bruising, No clotting problems, No night sweats, No swollen lymph nodes Endo: No excessive thirst, No excessive urination, No fatigue Skin: No bleeding, No color change, No itch, No new/changing skin lesions, No rash Objective Vital Signs Date Time Temp Pulse Resp B/P Pulse Ox O2 Delivery O2 Flow Rate FiO2 07/07/16 07:30 Room Air 07/07/16 07:30 36.8 84 16 109/62 98 Room Air 07/06/16 23:40 37.1 73 14 97/62 98 Room Air 07/06/16 23:10 Room Air 07/06/16 16:30 98 Room Air 07/06/16 15:49 37.2 68 16 88/53 98 Room Air Physical Exam General Appearance: WD/WN, no apparent distress, + obese Eyes: normal inspection, PERRL, EOMI, sclerae normal ENT: normal ENT inspection, hearing grossly normal, pharynx normal Neck: supple, no adenopathy, thyroid normal, no JVD, no carotid bruits, trachea midline Respiratory/Chest: chest non-tender, lungs clear, normal breath sounds, no respiratory distress, no accessory muscle use Cardiovascular: regular rate, rhythm, no edema, no gallop, no JVD, no murmur Abdomen: normal bowel sounds, soft, no organomegaly, no pulsatile mass, + tenderness (left flank area) Extremities: normal range of motion, non-tender, normal inspection, no pedal edema, no calf tenderness, normal capillary refill, pelvis stable Neurologic/Psychiatric: manager bench II-XII nml as tested, no motor/sensory deficits, alert, normal mood/affect, oriented x 3 Skin: normal color, warm/dry, no rash Lymphatic: no adenopathy Laboratory Results Last 24 Hours Test 07/07/16 06:46 White Blood Count 7.68 K/uL Red Blood Count 3.20 M/uL Hemoglobin 9.8 g/dL Hematocrit 29.3 % Mean Corpuscular Volume 91.6 fL Mean Corpuscular Hemoglobin 30.6 pg Mean Corpuscular Hemoglobin Concent 33.4 g/dl Platelet Count 165 K/uL Mean Platelet Volume 11.1 fL Neutrophils (%) (Auto) 63.8 % Lymphocytes (%) (Auto) 22.0 % Monocytes (%) (Auto) 12.8 % Eosinophils (%) (Auto) 1.2 % Basophils (%) (Auto) 0.1 % Neutrophils # (Auto) 4.90 K/uL Lymphocytes # (Auto) 1.69 K/uL Monocytes # (Auto) 0.98 K/uL Eosinophils # (Auto) 0.09 K/uL Basophils # (Auto) 0.01 K/uL RDW Standard Deviation 46.9 fL RDW Coefficient of Variation 14.0 % Immature Granulocyte % (Auto) 0.1 % Immature Granulocyte # (Auto) 0.01 K/uL Sodium Level 145 mmol/L Potassium Level 3.8 mmol/L Chloride Level 117 mmol/L Carbon Dioxide Level 20 mmol/L Anion Gap 8.0 mmol/L Blood Urea Nitrogen 12 mg/dl Creatinine 1.20 mg/dl Est Creatinine Clear Calc Drug Dose 71.4 ml/min Estimated GFR () 65.9 Estimated GFR (Non- 56.9 BUN/Creatinine Ratio 9.6 Random Glucose 96 mg/dl Calcium Level 7.7 mg/dl Magnesium Level 2.0 mg/dl Assessment and Plan 40-year-old female admitted on 07/05/2016 because of ureter stone with significant abdominal pain. A 6 x 4 mm obstructing proximal left ureteral calculus. Continue with persistent pain. recommend cysto with left ureteral stent placement. would do procedure today Stone persists on KUB. Will likely plan for outpatient ESWL for definitive management of stone after stent placement. Possible d/c home later this evening after stent placement vs tomorrow morning if she is doing well. Continue IV fluid, pain control, Continue normal saline 150 mL per hour, ketorolac 15 mg IV q. 6 hours p.r.n. pain, Zofran p.r.n. nausea. Start Flomax, ceftriaxone 1 g IV q. 24 hours. Change morphine to 4 mg every 4 as needed for the pain Leukocytosis upon admission, no signs of SIRS/sepsis, is getting IV Rocephin, will continue for now, follow-up urine culture and sensitivity Hypokalemia, replace potassium orally, will follow-up lab Deep venous thrombosis prophylaxis will be SCD, we'll ordered heparin per duct because of her obesity, and now most of the time in bed full code. Continued [facility] stay due to: multiple IV medications needed Discharge planning: home
[2016-07-07 14:58] VITALS: BP 111/75; PULSE 61; TEMP 37; O2SAT 98
[2016-07-07] MEDS ORDERED: ONDANSETRON INJ 2 MG/ML 2 ML VIAL IV PRN (15:00)
[2016-07-07] MEDS ORDERED: ATROPINE SULFATE 0.1 MG/ML 5ML SYR IV PRN (15:00)
[2016-07-07] MEDS ORDERED: FENTANYL CITRATE INJ 50 MCG/1 ML 2 ML VIAL IV PRN (15:00)
[2016-07-07] MEDS ORDERED: EpHEDrine SULFATE INJ 50 MG/ML AMP IV PRN (15:00)
[2016-07-07] MEDS ORDERED: LIDOCAINE HCL 2% 2 ML VIAL (20MG/ML) ONE (16:32)
[2016-07-07] MEDS ORDERED: DEXAMETHASONE SOD INJ 4 MG/ML VIAL ONE (16:32)
[2016-07-07] MEDS ORDERED: ONDANSETRON INJ 2 MG/ML 2 ML VIAL ONE (16:32)
[2016-07-07] MEDS ORDERED: PROPOFOL IV EMULSION 10 MG/ML 20 ML VIAL IV ONE (16:32)
[2016-07-07] MEDS ORDERED: FENTANYL CITRATE INJ 50 MCG/1 ML 2 ML VIAL ONE ×2 (16:32→17:38)
[2016-07-07] MEDS ORDERED: MIDAZOLAM HCL 1 MG/ML 2ML VIAL ONE (16:32)
[2016-07-07] MEDS: CEFTRIAXONE SOD INJ 1 GM in DEXTROSE 5% ADD-VANTAGE 50ML 50 ML IV SCH ×2 (18:00→19:18)
[2016-07-07] MEDS ORDERED: CONRAY 30% 150ML BOTTLE INSTIL ONE (18:00)
--- NOTE | 2016-07-07 18:10 | [facility] Post Operative Brief Note ---
Immediate Operative Summary Operative Date Jul 07, 2016. Pre-Operative Diagnosis Left proximal ureteral calculus, intractable renal colic Post-Operative Diagnosis Same Procedure(s) Performed Cystoscopy, left retrograde pyelography, left flexible ureteroscopy, laser lithotripsy, basket stone extraction, placement left ureteral stent Surgeon Dr. Josh Barba [employer] Layout Designer Surgeon(s) NA Estimated Blood Loss 0 ml Findings Good stone fragmentation and stent position on fluoro, no large residual fragments or ureteral injury Specimens #1. bladder urine for C&S, aerobic and anaerbic and gram stain. A. left ureteral stones for analysis Drains 6 fr 26 cm L loop stent Anesthesia [facility] Complication(s) None Disposition Recovery Room / PACU (Stable for discharge home from urologic perspective)
[2016-07-07] MEDS ORDERED: HYDROmorphone INJ 1 MG/ML SYR IV PRN (18:15)
[2016-07-07] MEDS ORDERED: OXYCODONE/ACETAMINOPHEN 5-325 TAB PO PRN ×2 (18:15)
[2016-07-07] MEDS ORDERED: PHENAZOPYRIDINE HCL 200 MG TAB PO PRN (18:15)
[2016-07-07] MEDS ORDERED: OXYBUTYNIN CHLORIDE 5 MG TAB PO PRN (18:15)
--- NOTE | 2016-07-07 18:19 | DIAGNOSTIC IMAGING REPORT ---
INTRAOPERATIVE RADIOGRAPHS CLINICAL HISTORY: Left-sided laser lithotripsy and stent placement. Fluoroscopy time: 66 seconds. FINDINGS: 5 spot fluoroscopic views of the left abdomen are correlated with abdominal CT dated 07/05/2016. The initial images shown an obstructing calculus in the left proximal ureter with associated hydronephrosis. The final image shows the proximal end of a left ureteral stent being deployed. IMPRESSION: Intraoperative images from a left-sided lithotripsy and ureteral stent placement procedure. See operative report for detailed findings. Electronically signed by: Elie Molina M.D. 07/07/2016 6:18 PM Dictated Date/Time: 07/07/2016 6:16 PM
[2016-07-07] MEDS ORDERED: NURSING VERBAL MED ORDER ONE ×3 (18:50→19:20)
[2016-07-07] MEDS ORDERED: ACETAMINOPHEN 1000 MG/100 ML IV IV ONE (18:51)
[2016-07-07] MEDS ORDERED: MEPERIDINE HCL 25 MG/ML CARP ONE (18:52)
[2016-07-07] MEDS ORDERED: METOCLOPRAMIDE HCL INJ 5 MG/ML 2 ML VIAL ONE (19:22)
--- NOTE | 2016-07-07 19:28 | Anesthesiology Progress Note ---
Anesthesia Post Op Note Date & Time Jul 07, 2016 at 19:28 Vital Signs Pain Intensity: 0 Vital Signs Past 12 Hours Date Time Temp Pulse Resp B/P Pulse Ox O2 Delivery O2 Flow Rate FiO2 07/07/16 19:03 139/80 07/07/16 19:00 87 25 100 07/07/16 19:00 87 25 07/07/16 18:57 149/97 07/07/16 18:55 105 26 100 07/07/16 18:55 105 26 07/07/16 18:54 161/124 07/07/16 18:50 158 30 07/07/16 18:50 157 30 90 07/07/16 18:47 160/143 07/07/16 18:45 146 24 93 07/07/16 18:45 147 24 07/07/16 18:40 144 18 92 07/07/16 18:40 143 18 07/07/16 18:38 154/106 07/07/16 18:35 105 22 91 07/07/16 18:35 103 22 07/07/16 18:33 133/84 07/07/16 18:30 83 22 94 07/07/16 18:30 82 22 07/07/16 18:28 130/79 07/07/16 18:25 74 22 07/07/16 18:25 75 22 98 07/07/16 18:23 124/71 07/07/16 18:20 75 20 07/07/16 18:20 76 20 100 07/07/16 18:18 122/74 07/07/16 18:15 82 20 99 07/07/16 18:15 80 20 07/07/16 18:13 112/69 07/07/16 18:10 85 17 100 07/07/16 18:10 85 17 07/07/16 18:10 36.5 95 18 114/73 100 Mask 10 07/07/16 14:58 37.0 61 16 111/75 98 Room Air 07/07/16 07:30 Room Air 07/07/16 07:30 36.8 84 16 109/62 98 Room Air Notes Mental Status: alert / awake / arousable, participated in evaluation Pt Amnestic to Procedure: Yes Nausea / Vomiting: adequately controlled Pain: adequately controlled Airway Patency, RR, SpO2: stable & adequate BP & HR: stable & adequate Hydration State: stable & adequate Anesthetic Complications: no major complications apparent see anesthesia progress note for more detail
--- NOTE | 2016-07-07 19:34 | Anesthesiology Progress Note ---
Anesthesia Progress Note Date of Service Jul 07, 2016. Progress Notes Pt is a 40F s/p L cysto, laser litho, basket stone extraction. Pt was without complications intra-operatively. During her PACU stay, pt developed chills, rigors, tachycardia (HR 140s-150s), and hyperthermia (37.7 celsius). Pt was likely showing signs of bacteremia. The pt was given meperidine 25mg IV, acetaminophen 1mg IV, and O2 via facemask. Within a few minutes, the pt's HR normalized and her rigors subsided. I spoke with Dr. Barba, and we were in agreement that the pt should be transferred to PCU for closer monitoring overnight. The pt was otherwise stable without further complaints and stable to be discharged.
--- NOTE | 2016-07-07 19:43 | OPERATIVE REPORT ---
DATE OF OPERATION: 07/07/2016 PREOPERATIVE DIAGNOSIS: Left proximal ureteral stone with intractable renal colic. POSTOPERATIVE DIAGNOSIS: Same. PROCEDURES: Cystoscopy, left retrograde pyelography, left flexible ureteroscopy with laser lithotripsy, stone extraction, and ureteral stent placement. SURGEON: Dr. Josh Barba. CERTIFIED HOME HEALTH AIDE: None. ANESTHESIA: General anesthesia with laryngeal mask. COMPLICATIONS: Chills and tachycardia in recovery. ESTIMATED BLOOD LOSS: Zero. SPECIMENS SENT TO PATHOLOGY: Bladder for urine culture and sensitivity after left wire placement and left ureteral stone fragments for analysis. FINDINGS: Good stone fragmentation and stent position on fluoroscopy, no large residual stone fragments noted or ureteral injury. DRAINS LEFT IN PLACE: Include a 6-[place] 26 cm, left-sided loop ureteral stent. BRIEF HISTORY: Ms. Rodriguez is a 40-year-old female admitted to [facility] on 07/05/2016 for left-sided flank pain. She continues to have intractable pain and on CT scan imaging, she has a 6-7 mm left-sided proximal ureteral stent with hydronephrosis. After discussion of risks and benefits of various forms of intervention, she has decided upon endoscopic management with possible laser lithotripsy to manage her disease. She has been covered with cephalosporins as an inpatient and additional ciprofloxacin was provided prior to OR. Please see urology consultation and progress notes for further details. She was then brought to the operating room for this purpose. SCDs are present on both lower extremities for DVT prophylaxis. PROCEDURE IN DETAIL: The patient was properly identified and brought to the operative suite. After identification of appropriate consent on the chart, general anesthesia with laryngeal mask was initiated. The patient was prepped and draped in standard fashion for this procedure. multimedia editor-out procedure was followed. A 22-[place] rigid cystoscope was passed into the bladder under direct visualization and bladder was surveyed in its entirety, demonstrating no intravesical lesions, papillary masses, or calculi. Ureteral orifices were noted in the normal anatomic location and right-sided ureteral orifice was noted to be effluxing clear yellow urine. Gentle retrograde pyelography was performed on the left hand side, demonstrating a normal distal and mid ureter up to the level of the calcification in the left upper quadrant, consistent with the patient's stone. Dilation of the collecting system proximally was present, consistent with hydronephrosis and ureteral stone. Sensor tip wire was advanced up to the level of the left renal pelvis and kept until end of the case as a safety wire. A small amount of dark cloudy urine transiently passed from the left side, felt to be possibly consistent with old blood behind the patient's stone. After the placement of wire, an aliquot of urine was sent for culture and sensitivity. Seeing the patient's normal white count and previous contaminated urine specimen with no uropathogens, decision was made to continue with ureteroscopy. A second Amplatz Superstiff wire was advanced as a working wire and a 12/14 28 cm ureteral access sheath was advanced into the mid ureter without difficulties or resistance. Flexible ureteroscope was advanced up to the level of the stone which was visualized within the ureteral lumen. This was fragmented in smaller pieces using a 200 micron fiber and pieces were grasped and removed from the patient using an open-ended basket as appropriate. These were sent for chemical analysis. Some of the stone was noted to be retropulsed within the kidney and this was followed, fragmented and removed until no large fragments of stone were present. No significant inflammation and minimal cloudy urine was present within the kidney. Low irrigation pressures were kept throughout the case with free drainage through the ureteral access sheath. After this was complete, a complete pyeloscopy was performed, demonstrating no residual large intrarenal stones. Complete exit ureteroscopy including removal of the scope was performed, demonstrating no ureteral tears, injuries or other retained stone fragments. Cystoscope was backloaded over the safety wire and a 6-[place] 26 cm loop ureteral stent was advanced with the stent being present within the renal pelvis and full loops present within the bladder. Bladder was drained and cystoscope was removed, anesthesia was reversed. The patient was transferred to recovery room in stable condition. FOLLOWUP CARE: The patient will be readmitted to the medical service with advancement of diet. Pain medication and antispasmodics provided. The patient should be considered stable for discharge home from urologic perspective as long as she is comfortable in the postoperative period. Addendum: In recovery patient noted to have chills and tachycardia, transient. Unclear if this represented partially treated bacteremia. Per anesthesia recommendation patient admitted to monitored bed postop for closer observation. I attest to the content of the Intraoperative Record and any orders documented therein. Any exceptions are noted below. GEOFF
[2016-07-07 19:50] VITALS: BP 138/70; PULSE 86; TEMP 37; O2SAT 96
[2016-07-07] MEDS: DOCUSATE SODIUM 100 MG CAP PO SCH (20:59)
[2016-07-07 23:42] VITALS: BP 142/77; PULSE 67; TEMP 36.6; O2SAT 97
[2016-07-08 03:28] VITALS: BP 128/65; PULSE 47; TEMP 36.4; O2SAT 96
[2016-07-08 07:14] LABS: BUN/CREATININE RATIO 9.1 (10-20); CALCIUM 7.7 mg/dl (8.5-10.1); CREATININE 0.91 mg/dl (0.60-1.20); MAGNESIUM 1.8 mg/dl (1.8-2.4); POTASSIUM 3.7 mmol/L (3.5-5.1)
[2016-07-08] MEDS: DOCUSATE SODIUM 100 MG CAP PO SCH (08:00)
[2016-07-08] MEDS: TAMSULOSIN HCL 0.4 MG CAP PO SCH (08:01)
[2016-07-08 08:04] VITALS: BP 157/88; PULSE 68; TEMP 36.8; O2SAT 96
[2016-07-08] MEDS: HEPARIN SOD 5000 UNIT/0.5 ML CARP SQ SCH (08:05)
--- NOTE | 2016-07-08 08:55 | Progress Note ---
Subjective Date of Service: Jul 08, 2016. Subjective Pt evaluation today including: conversation w/ patient, physical exam, chart review, lab review, review of inpatient medication list Pain: Stent irritation PO Intake: Willie reg diet Voiding: no voiding problems 40 yo female POD#1 s/p laser litho, feels much improved this AM. On telemetry due to bout of tachycardia and chills last PM, not repeated since. She notes mild stent irritation, improved with Pyridium. Intraop findings and images reviewed. Problem List Medical Problems: (1) Left ureteral calculus Status: Acute Review of Systems Constitutional: No chills (improved since postop), No fever Eyes: No worsening of vision ENT: No hearing loss Respiratory: No shortness of breath Cardiac: No chest pain Abdomen: No nausea, No vomiting Female : + see HPI, + urinary frequency Neurologic: No memory loss Psychiatric: No depression symptoms Heme: No clotting problems Endo: + excessive urination Skin: No new/changing skin lesions Objective Vital Signs Date Time Temp Pulse Resp B/P Pulse Ox O2 Delivery O2 Flow Rate FiO2 07/08/16 08:04 36.8 68 18 157/88 96 07/08/16 04:00 Room Air 07/08/16 03:28 36.4 47 16 128/65 96 Room Air 07/07/16 23:59 Room Air 07/07/16 23:42 36.6 67 22 142/77 97 Room Air 07/07/16 20:00 Room Air 07/07/16 19:50 37.0 86 22 138/70 96 Nasal Cannula 2.0 07/07/16 19:40 87 28 07/07/16 19:40 85 28 93 07/07/16 19:38 131/72 07/07/16 19:35 87 28 07/07/16 19:35 88 28 95 07/07/16 19:33 128/79 07/07/16 19:32 37.7 07/07/16 19:30 91 28 97 07/07/16 19:30 91 28 07/07/16 19:29 93 23 98 07/07/16 19:29 93 23 07/07/16 19:28 130/76 07/07/16 19:24 89 27 07/07/16 19:24 90 27 97 07/07/16 19:23 140/79 07/07/16 19:19 93 26 07/07/16 19:19 93 26 95 07/07/16 19:18 135/88 07/07/16 19:14 88 30 98 07/07/16 19:14 89 30 07/07/16 19:13 141/83 07/07/16 19:09 91 30 07/07/16 19:09 91 30 100 07/07/16 19:08 140/95 07/07/16 19:04 87 32 100 07/07/16 19:04 85 32 07/07/16 19:03 139/80 07/07/16 19:00 87 25 100 07/07/16 19:00 87 25 07/07/16 18:57 149/97 07/07/16 18:55 105 26 100 07/07/16 18:55 105 26 07/07/16 18:54 161/124 07/07/16 18:50 158 30 07/07/16 18:50 157 30 90 07/07/16 18:47 160/143 07/07/16 18:45 146 24 93 07/07/16 18:45 147 24 07/07/16 18:40 144 18 92 07/07/16 18:40 143 18 07/07/16 18:38 154/106 07/07/16 18:35 105 22 91 07/07/16 18:35 103 22 07/07/16 18:33 133/84 07/07/16 18:30 83 22 94 07/07/16 18:30 82 22 07/07/16 18:28 130/79 07/07/16 18:25 74 22 07/07/16 18:25 75 22 98 07/07/16 18:23 124/71 07/07/16 18:20 75 20 07/07/16 18:20 76 20 100 07/07/16 18:18 122/74 07/07/16 18:15 82 20 99 07/07/16 18:15 80 20 07/07/16 18:13 112/69 07/07/16 18:10 85 17 100 07/07/16 18:10 85 17 07/07/16 18:10 36.5 95 18 114/73 100 Mask 10 07/07/16 14:58 37.0 61 16 111/75 98 Room Air Physical Exam General Appearance: WD/WN, no apparent distress ENT: hearing grossly normal Neck: supple, no adenopathy Respiratory/Chest: no respiratory distress, no accessory muscle use Cardiovascular: no JVD Abdomen: non tender, soft Extremities: non-tender Neurologic/Psychiatric: alert, oriented x 3 Laboratory Results Last 24 Hours Test 07/08/16 06:05 Sodium Level 143 mmol/L Potassium Level 3.7 mmol/L Chloride Level 114 mmol/L Carbon Dioxide Level 20 mmol/L Anion Gap 9.0 mmol/L Blood Urea Nitrogen 8 mg/dl Creatinine 0.91 mg/dl Est Creatinine Clear Calc Drug Dose 96.8 ml/min Estimated GFR () 92.1 Estimated GFR (Non- 79.5 BUN/Creatinine Ratio 9.1 Random Glucose 116 mg/dl Calcium Level 7.7 mg/dl Magnesium Level 1.8 mg/dl Assessment and Plan A/P 40 yo female POD#1 s/p laser litho, stent. Much improved. Should be stable for DC home today. Would cover with 10-14 days of antibiotics, provide oral pain meds, Pyridium and oxybutynin PRN bladder spasms. Will arrange for outpatient cysto, stent removal after KUB - can call office for timing. Contact our service as needed for any postop queries. Thank you for allowing us to participate in this patient's care, please recall our service PRN new questions or concerns. Continued [facility] stay due to: multiple IV medications needed Discharge planning: home
[2016-07-08] MEDS ORDERED: PHEN-1043 PO (09:53)
[2016-07-08] MEDS ORDERED: POLY335019 PO (09:53)
[2016-07-08] MEDS ORDERED: HYDR-5688 PO (09:53)
[2016-07-08] MEDS ORDERED: AMOX875T PO (09:53)
[2016-07-08] MEDS ORDERED: LACTCHW3 PO (09:53)
[2016-07-08] MEDS ORDERED: DTR5 PO (09:53)
--- NOTE | 2016-07-08 10:05 | Discharge Instructions ---
Discharge Instructions Admission Reason for Admission: Ureteral Stone Discharge Discharge Diagnosis / Problem: Kidney stone on left - removal by way of laser. Stent placement. Discharge Goals Goal(s): Learn about illness, Diagnostic testing, Therapeutic intervention Activity Recommendations Activity Limitations: as noted below Lifting Limitations: no more than 10 pounds Exercise/Sports Limitations: until after follow-up appointment Driving or Machine Use: no limitations (as long as you are not using pain medication ) Over the next 1-2 weeks would recommend light activity only. Would avoid going to the gym, heavy lifting over 10-15 pounds, etc. . Instructions / Follow-Up Instructions / Follow-Up From Dr. Avila - 1. For your urinary tract infection - * take augmentin twice daily for 7 days; begin this today * take lactinex (probiotics) twice a day for 7 days; begin this today 2. For bladder pain/spasm - * may take norco (hydrocodone with tylenol) every 6 hours as needed * may take oxybutinin up to twice a day as needed for bladder pain * may take pyridium up to three times a day as needed for bladder pain * the pyridium may make your urine or tears orange in color * do not take any [id number] tylenol if you are using the hydrocodone 3. For constipation - * take jpsb-qus-qtaqiya miralax once daily * you may also need a second agent such as senna or dulcolax 4. Appointments - * please see Dr. Barba, urology, within 2 weeks for stent removal * please see your family doctor early to mid next week 5. Keep your appointment with the surgeon for your gall bladder. 6. If you experience fever > 100.5 degrees, worsening abdominal pain, vomiting , painful urination, etc - please contact your family doctor or Dr. Barba's office right away. Current Hospital Diet Patient's current hospital diet: Regular Diet Discharge Diet Recommended Diet: Regular Diet Procedures Procedures Performed: Cystoscopy, left retrograde pyelography, left flexible ureteroscopy, laser lithotripsy, basket stone extraction, placement left ureteral stent Pending Studies Studies pending at discharge: no Medical Emergencies . Who to Call and When: Medical Emergencies: If at any time you feel your situation is an emergency, please call 911 immediately. . Non-Emergent Contact Non-Emergency issues call your: Urologist Call Non-Emergent contact if: temperature is above 100.5, your pain is not controlled, your pain is worsening, your pain is unusual for you, your pain is concerning you, you have any medication questions . . "Provider Documentation" section prepared by Eliud Avila. VTE Core Measure Inpt VTE Proph given/why not?: SCD's
[2016-07-08 10:30] VITALS: BP 157/88; PULSE 68; TEMP 36.8; O2SAT 96
--- NOTE | 2016-07-08 18:37 | Discharge Summary ---
Discharge Summary Admission Date: Jul 05, 2016 at 19:24 Discharge Date: Jul 08, 2016 Discharge Disposition: Home Principal Diagnosis: left-sided ureteral stone, s/p laser lithotripsy & stent placement Problems/Secondary Diagnoses: UTI hypokalemia - resolved Immunizations: Have You Had Influenza Vaccine: Unknown History of Tetanus Vaccine?: Yes Tetanus Immunization Date: Dec 16, 2012 Procedures: 1. Cystoscopy, left retrograde pyelography, left flexible ureteroscopy with laser lithotripsy, stone extraction, and ureteral stent placement - Josh Barba MD 2. CT abd/pelvis - IMPRESSION: 6 x 4 mm obstructing proximal left ureteral calculus. Consultations: urology - Josh Barba MD Medication Reconciliation New Medications: Amoxicillin & Pot Clavulanate (Augmentin 875-125 mg) 1 Tab Tab 875 MG PO BID for 7 Days, #14 TAB 0 Refills Hydrocodone/Acetaminophen 5MG/325MG ([place] 5MG/325MG) Tab 1 TABLET PO Q6H PRN for Pain, #15 TAB 0 Refills Lactobacillus (Lactinex) Chw 4 TAB PO BID for 7 Days, #56 CHW 0 Refills Polyethylene Glycol 3350 (Miralax) 1 Pow Pow 17 GM PO DAILY, #527 GM 0 Refills Oxybutynin Chloride (Oxybutynin Chloride) 5 Mg Tab 5 MG PO BID PRN for Bladder pain for 14 Days, #28 TAB 0 Refills Phenazopyridine HCl (Phenazopyridine HCl) 200 Mg Tab 200 MG PO TID PRN for Bladder pain for 5 Days, #15 TAB may make tears or urine orange in color Discontinued Medications: Sulfa/Trimethoprim (Bactrim Ds 800MG/160MG) Tab 1 TAB PO BID, TAB TAKE DIRECTED UNTIL GONE Referrals At Discharge Follow up Referrals: Urologist Referral - Within 2 Weeks with Josh Barba MD, Urology Discharge Exam Physical Exam: General Appearance: WD/WN, no apparent distress ENT: pharynx normal Neck: no JVD Respiratory/Chest: lungs clear, no respiratory distress, no accessory muscle use Cardiovascular: regular rate, rhythm, no gallop, no murmur, normal peripheral pulses Abdomen / GI: normal bowel sounds, non tender, soft, no organomegaly Extremities: no pedal edema Neurologic/Psychiatric: alert, oriented x 3 Hospital Course HISTORY OF PRESENT ILLNESS: This is a 40-year-old female who came to the Emergency Room because of significant abdominal pain. She described her pain as spasmodic, sharp, about 4/10, radiating down to her left groin. She was recently placed on bactrim for a UTI. CT abd/pelvis done in the ER showed evidence of an obstructing left-sided renal stone. HOSPITAL COURSE: The patient's left-sided renal stone was initially treated with conservative measures including IV fluids, IV antibiotics for suspected UTI, flomax, and pain medication. She had no success in passing her stone spontaneously and thus she was taken to the OR on 07/07/[address] Josh Barba. There he performed laser lithotripsy with left-sided ureteral stent placement. Her pain significantly improved following the surgery. Urine culture ultimately grew corynebacterium. She received 3 days of rocephin, and will d/c to home on a 7-day course of augmentin for such. She will follow-up with Dr. Barba's office for stent retrieval within 2 weeks. Stone has been sent for stone analysis. She has been given pain medication, pyridium, and oxybutinin at discharge for symptom control. Total Time Spent: Less than 30 minutes This includes examination of the patient, discharge planning, medication reconciliation, and communication with other providers. Discharge Instructions Please refer to the electronic Patient Visit Report (Discharge Instructions) for additional information. Follow-Up 1. Dr. Barba, urology, within [address] Kevin Zapata, PCP, within 1 week Additional Copies To Kevin Zapata MD; Josh Barba MD, Urology; Seema Mendoza
== END 2016-07-08 12:01 | disposition home or self-care (01) | DRG 669 ==
LOC: ENRESERVDT → ENRESERVTM → EDBD 15:29 → C.EDB 15:30 → C.MSN 19:24 → C.2E 07-07 19:59
PROVIDERS: ADMIT Hospitalist; ATTEND Internal Medicine
PROC: BT1F0ZZ Fluoroscopy of Left Kidney, Ureter and Bladder using High Osmolar Contrast (ICD-10-PCS; principal; 2016-07-07 07:15)
PROC: 0TC78ZZ Extirpation of Matter from Left Ureter, Via Natural or Artificial Opening Endoscopic (ICD-10-PCS; principal; 2016-07-07 07:15)
PROC: 0T778DZ Dilation of Left Ureter with Intraluminal Device, Via Natural or Artificial Opening Endoscopic (ICD-10-PCS; principal; 2016-07-07 07:15)
DX: N13.2 Hydronephrosis with renal and ureteral calculous obstruction (principal); R78.81 Bacteremia; N39.0 Urinary tract infection, site not specified; B96.89 Other specified bacterial agents as the cause of diseases classified elsewhere; E87.6 Hypokalemia; F17.210 Nicotine dependence, cigarettes, uncomplicated; E66.9 Obesity, unspecified; Z68.32 Body mass index [BMI] 32.0-32.9, adult

== ENCOUNTER → 2016-08-01 | Outpatient (CLI) | payer BC ==
[~2016-08-01] MED LIST changes: +AMOX875T PO; -CALC500C3 PO; +DTR5 PO; +HYDR-5688 PO; +LACTCHW3 PO; -MTR600X PO; -OXYC-643 PO; -PEDICHW50 PO; +PHEN-1043 PO; +POLY335019 PO
--- NOTE | 2016-08-01 15:41 | DIAGNOSTIC IMAGING REPORT ---
CT SCAN OF THE ABDOMEN AND PELVIS WITHOUT CONTRAST CLINICAL HISTORY: Left flank pain. COMPARISON STUDY: 07/05/2016 TECHNIQUE: CT scan of the abdomen and pelvis was performed from the lung bases to the proximal femurs. Images are reviewed in the axial, sagittal, and coronal planes. IV contrast was not administered for this examination. CT DOSE: 1474.12 mGy.cm FINDINGS: Lower chest: The heart is normal in size and configuration, without pericardial effusion. The lung bases and pleural spaces are clear. Liver: The unenhanced liver is normal in size, contour, and attenuation. There is no intrahepatic biliary ductal dilatation. Gallbladder: Cholelithiasis. Spleen: Normal in size and attenuation. Pancreas: Unremarkable. Adrenal glands: Unremarkable. Kidneys: There are 2 small stone fragments within the upper pole the left kidney the largest of which measures 3 mm. No right renal calculi are visualized. There is no significant hydronephrosis. No ureteral calculi are visualized. Bowel: There are no transition zones indicate bowel obstruction. The appendix appears normal. There is no acute diverticulitis. Peritoneum: There is no intraperitoneal free air or abdominal ascites. Vasculature: The abdominal aorta is normal in course and caliber. Adenopathy: None. Pelvic viscera: The bladder, and pelvic viscera are unremarkable. Skeletal structures: No destructive osseous lesions are seen. IMPRESSION: 1. Interval left-sided lithotripsy. There are small stone fragments within the upper pole the left kidney. No obstructing ureteral calculi are visualized. 2. No evidence of bowel obstruction. No evidence of free air 3. No evidence of acute appendicitis. No evidence of diverticulitis. 4. Cholelithiasis Electronically signed by: Car Solo M.D. 08/01/2016 3:39 PM Dictated Date/Time: 08/01/2016 3:32 PM
== END | disposition home or self-care (01) ==
LOC: C.CTS 15:07
PROVIDERS: ATTEND Nurse Practitioner Family
DX: N20.1 Calculus of ureter (principal); R10.9 Unspecified abdominal pain; K80.20 Calculus of gallbladder without cholecystitis without obstruction

== ENCOUNTER → 2016-08-01 | Outpatient (CLI) | payer BC ==
--- NOTE | 2016-08-01 11:13 | DIAGNOSTIC IMAGING REPORT ---
KUB HISTORY: CALCULUS OF KIDNEY COMPARISON: KUB 07/07/2016. FINDINGS: The bowel gas pattern is unremarkable. There are no dilated loops of small bowel to suggest an obstruction. No renal calculi identified. There is a new 9 mm calcification within the left deep pelvis. This likely represents distal passage of the previous identified left ureteral stone. This likely resides within the left ureterovesical junction. No pneumoperitoneum or pneumatosis. IMPRESSION: A new 9 mm calcification within the left deep pelvis likely represents a left ureterovesical junction stone. Electronically signed by: Rober Vazquez M.D. 08/01/2016 11:11 AM Dictated Date/Time: 08/01/2016 11:09 AM
== END | disposition home or self-care (01) ==
LOC: C.RADBC 10:37
PROVIDERS: ATTEND Nurse Practitioner Family
DX: N21.0 Calculus in bladder (principal)

== ENCOUNTER → 2017-06-27 | Outpatient (CLI) | payer OTHER ==
--- NOTE | 2017-06-27 19:00 | DIAGNOSTIC IMAGING REPORT ---
KUB CLINICAL HISTORY: Nephrolithiasis. FINDINGS: 2 AP supine abdominal radiographs are correlated with abdominal CT dated 08/01/2016. There is a nonobstructed abdominal bowel gas pattern. Mild colonic fecal retention is observed. This partially obscures the right renal shadow. There is no clear radiographic evidence of nephrolithiasis on today's examination. Numerous phleboliths are again seen in the pelvis. The bony structures appear intact. IMPRESSION: There is no clear radiographic evidence of nephrolithiasis on today's examination. Electronically signed by: Elie Molina M.D. 06/27/2017 6:59 PM Dictated Date/Time: 06/27/2017 6:57 PM
== END | disposition home or self-care (01) ==
LOC: C.RAD 18:33
PROVIDERS: ATTEND Nurse Practitioner Adult Health
DX: N20.0 Calculus of kidney (principal)

== ENCOUNTER → 2017-06-28 | Outpatient (CLI) | payer OTHER | END | disposition home or self-care (01) | LOC: C.LABSPEC 17:29 | PROVIDERS: ATTEND Nurse Practitioner Adult Health | DX: R10.9 Unspecified abdominal pain (principal) ==

== ENCOUNTER 2018-01-19 17:06 | Emergency (ER) | payer OTHER ==
[~2018-01-19] VITALS: Ht 167.6 cm; Wt 96.2 kg
[2018-01-19 17:09] VITALS: TEMP 37.1; Ht 167.6 cm; Wt 96.2 kg
[2018-01-19] MEDS ORDERED: SODIUM CHLORIDE 0.9% 1000ML 1,000 ML IV STA (18:01)
--- NOTE | 2018-01-19 18:02 | EMERGENCY ROOM VISIT NOTE ---
History Report prepared by Curly: Harvey Schneider Under the Supervision of: Dr. Aldair Sanchez M.D. First contact with patient: 17:45 Chief Complaint: DIZZY Stated Complaint: DIZZY, TINGLING IN FACE, ARMS, LEGS Nursing Triage Summary: Patient states "I am very dizzy. My lips are tingly. The back of my legs are tingly. The symptoms started about a week ago. They would come on and off lasting minutes but for the last hour they have remained." History of Present Illness The patient is a 42 year old white female with a past medical history of back surgery, a ureteral stent who presents to the ED with a cc of intermittent tingling beginning a week ago. Positive tingling to the lips, ear lobes, back of the calves, and forearms. Negative a history of this before, tick bites, fevers, chills, headache, feeling itchy, rash, redness, hiking, recent travel or antibiotic use, being exposed to people with similar symptoms, abdominal pain , nausea, vomiting, trouble moving her bowels or urinating, trauma, heavy lifting, exercise, taking control. Pt notes over the past few days her symptoms have become more persistent. She states she currently smokes and drinks a large amount of caffeinated beverages. Pt denies a history of depression, HLD, HTN, DM, anxiety, MS, autoimmune disorder. She reports for the past five years she has been having severe menstrual periods. Pt notes she can feel her menstrual cycle is approaching. Source of History: patient Onset: a week Position: ear (bilateral), lip, arm (bilateral), leg (bilateral) Quality: tingling Timing: intermittent (more persistent over the past few days) Associated Symptoms: No fevers, No chills, No headache, No nausea, No vomiting, No abdominal pain, No rash Note: Negative a history of this before, tick bites, feeling itchy, redness, hiking, recent travel or antibiotic use, being exposed to people with similar symptoms, trouble moving her bowels or urinating, trauma, heavy lifting, exercise, taking control. Review of Systems See HPI for pertinent positives and negatives. A total of ten systems were reviewed and were otherwise negative. Past Medical & Surgical Medical Problems: (1) Ureteral stone Family History Patient reports no known family medical history. Social History Smoking Status: Current Every Day Smoker Marital Status: Occupation Status: employed Current/Historical Medications No Active Prescriptions or Reported Meds Allergies Coded Allergies: No Known Allergies (Unverified , 01/19/18) Physical Exam Vital Signs Date Time Temp Pulse Resp B/P (MAP) Pulse Ox O2 Delivery O2 Flow Rate FiO2 01/19/18 19:41 78 16 109/64 01/19/18 18:15 76 01/19/18 18:10 98 Room Air 01/19/18 18:10 98 Room Air 01/19/18 17:09 37.1 105 18 152/97 100 Room Air Physical Exam GENERAL: Awake, alert, well-appearing, NAD HENT: Normocephalic, atraumatic. EYES: Normal conjunctiva. Sclera non-icteric. PERRL. No anisocoria. NECK: Supple. No nuchal rigidity. FROM. RESPIRATORY: CTAB, no rhonchi, wheezing, crackles CARDIAC: RRR, no MRG ABDOMEN: Soft, NTND, BS+ MSK: No chest wall TTP, no LE edema NEURO: GCS 15, CN 2-12 intact, moves all 4s on command. Tingling in he V2 distribution of the face, bilateral vulvar forearms, and bilateral posterior calves. SKIN: No rash or jaundice noted. Medical Decision & Procedures Laboratory Results 01/19/18 18:55 Red Blood Count 4.05, Mean Corpuscular Volume 92.3, Mean Corpuscular Hemoglobin 29.9, Mean Corpuscular Hemoglobin Concent 32.4, Mean Platelet Volume 10.8, Neutrophils (%) (Auto) 62.7, Lymphocytes (%) (Auto) 29.8, Monocytes (%) (Auto) 6.0, Eosinophils (%) (Auto) 1.0, Basophils (%) (Auto) 0.2, Neutrophils # (Auto) 6.81, Lymphocytes # (Auto) 3.24, Monocytes # (Auto) 0.65, Eosinophils # (Auto) 0.11, Basophils # (Auto) 0.02 01/19/18 18:55 Test 01/19/18 18:24 01/19/18 18:55 Urine Color YELLOW Urine Appearance CLEAR (CLEAR) Urine pH 6.5 (4.5-7.5) Urine Specific [place] 1.007 (1.000-1.030) Urine Protein NEG (NEG) Urine Glucose (UA) NEG (NEG) Urine Ketones NEG (NEG) Urine Occult Blood NEG (NEG) Urine Nitrite NEG (NEG) Urine Bilirubin NEG (NEG) Urine Urobilinogen NEG (NEG) Urine Leukocyte Esterase NEG (NEG) White Blood Count 10.86 K/uL (4.8-10.8) Red Blood Count 4.05 M/uL (4.2-5.4) Hemoglobin 12.1 g/dL (12.0-16.0) Hematocrit 37.4 % (37-47) Mean Corpuscular Volume 92.3 fL (80-100) Mean Corpuscular Hemoglobin 29.9 pg (25-34) Mean Corpuscular Hemoglobin Concent 32.4 g/dl (32-36) Platelet Count 260 K/uL (130-400) Mean Platelet Volume 10.8 fL (7.4-10.4) Neutrophils (%) (Auto) 62.7 % Lymphocytes (%) (Auto) 29.8 % Monocytes (%) (Auto) 6.0 % Eosinophils (%) (Auto) 1.0 % Basophils (%) (Auto) 0.2 % Neutrophils # (Auto) 6.81 K/uL (1.4-6.5) Lymphocytes # (Auto) 3.24 K/uL (1.2-3.4) Monocytes # (Auto) 0.65 K/uL (0.11-0.59) Eosinophils # (Auto) 0.11 K/uL (0-0.5) Basophils # (Auto) 0.02 K/uL (0-0.2) RDW Standard Deviation 46.9 fL (36.4-46.3) RDW Coefficient of Variation 13.8 % (11.5-14.5) Immature Granulocyte % (Auto) 0.3 % Immature Granulocyte # (Auto) 0.03 K/uL (0.00-0.02) Anion Gap 9.0 mmol/L (3-11) Est Creatinine Clear Calc Drug Dose 115.4 ml/min Estimated GFR () 114.8 Estimated GFR (Non- 99.0 BUN/Creatinine Ratio 12.2 (10-20) Calcium Level 8.7 mg/dl (8.5-10.1) Phosphorus Level 3.1 mg/dl (2.5-4.9) Magnesium Level 2.2 mg/dl (1.8-2.4) Total Bilirubin 0.2 mg/dl (0.2-1) Direct Bilirubin < 0.1 mg/dl (0-0.2) Aspartate Amino Transf (AST/SGOT) 13 U/L (15-37) Alanine Aminotransferase (ALT/SGPT) 21 U/L (12-78) Alkaline Phosphatase 94 U/L (45-117) Total Protein 7.1 gm/dl (6.4-8.2) Albumin 3.5 gm/dl (3.4-5.0) Thyroid Stimulating Hormone (TSH) 0.929 uIu/ml (0.300-4.500) Laboratory results reviewed by me Medications Administered Medications (Trade) Dose Ordered Sig/Omari Route Start Time Stop Time Status Last Admin Dose Admin Sodium Chloride 1,000 ml @ 999 mls/hr Q1H1M STAT IV 01/19/18 18:01 01/19/18 19:01 DC 01/19/18 18:01 999 MLS/HR ECG Per My Interpretation Indication: other (dizzy) Rate (beats per minute): 70 Rhythm: normal sinus Findings: T-wave inversion (Lead III), other (Normal inveral. Normal axis. ) ED Course 175: The patient was evaluated in room A10. A complete history and physical exam was performed. 2010: I reevaluated the patient. Discussed results and discharge instructions: she verbalized understanding and agreement. The patient is ready for discharge. Medical Decision The patient is a 42 year old white female with a past medical history of back surgery, a ureteral stent who presents to the ED with a cc of intermittent tingling beginning a week ago. Nursing notes reviewed. Ancillary studies and prior records reviewed. Differential diagnosis: Etiologies such as metabolic, infection, hypo/hyperglycemia, electrolyte abnormalities, cardiac sources, intracerebral event, toxicologic, neurologic, as well as others were entertained. Patient was seen and evaluated the bedside. The patient was complaining of some tingling bilateral forearms midface as well as posterior calves. The patient denies any recent hunting camping or hiking. Patient denies any tick bites. Patient does admit to using a fair amount of caffeine and little in terms of clear liquids. The patient also does smoke. I did branch credit counselor patient on increasing her non-caffeinated beverages considering smoking cessation. Patient does not have any focal neuro deficits. The patient's constellation of symptoms would be less likely to equate to a neurologic deficit. We did talk about spinal cord also however given the range in which they are located this would also be less likely. Patient again can feel there but she does have some tingling. Patient did note some dizziness but this is more like lightheadedness and not vertiginous symptoms. No nystagmus. Patient did have blood work completed along with an EKG. I do not believe the patient warrants a CT of the brain at this time. The patient has no dysmetria no ataxia and has good symmetric strength throughout. No dysarthria. Patient also denies any pain. Patient was given some IV fluids. Patient did have some mild hypokalemia which was repleted. I did discuss results with the patient believe the patient was suitable for outpatient follow- up and treatment at this time. Patient was given strict follow-up, discharge, and return precautions. All questions were answered. Patient was deemed suitable for outpatient follow-up at this time. Patient agreed with the plan of care and was safely discharged home. Medication Reconcilliation Current Medication List: was personally reviewed by me Blood Pressure Screening Patient's blood pressure: Normal blood pressure Blood pressure disposition: Did not require urgent referral Impression Primary Impression: Dizziness Additional Impressions: Hypokalemia Encounter for smoking cessation counseling Scribe Attestation The scribe's documentation has been prepared under my direction and personally reviewed by me in its entirety. I confirm that the note above accurately reflects all work, treatment, procedures, and medical decision making performed by me. Departure Information Dispostion Home / Self-Care Prescriptions No Active Prescriptions or Reported Meds Referrals Seema Mendoza (PCP) Forms HOME CARE DOCUMENTATION FORM, IMPORTANT VISIT INFORMATION Patient Instructions Dizziness Balance Probs Fainting, ED Smoking Cessation, Hypokalemia [facility], [facility] Additional Instructions Please return to the emergency department if you have worsening or recurrent symptoms not amenable to at-home treatment. Please call for a follow-up appointment with her primary care physician. Please take your medications as prescribed. If you have other concerns and/or complaints please feel free to also call your primary care physician's office or return the ED for further evaluation, management, and treatment. You may take 600 mg Ibuprofen every 6 hours as needed for pain/fever with food unless told by your physician not to take NSAIDs. You may take tylenol 650 mg every 6 hours as needed for pain/fever unless told by your physician to not take it or have liver problems. You may take motrin and tylenol separately or at the same time. Take your medications as prescribed. Consider smoking cessation. Please consider increasing the amount of clear liquids and non-caffeinated beverages that you drink. You have been examined and treated today on an emergency basis only. This is not a substitute for, or an effort to provide, complete comprehensive medical care. It is impossible to recognize and treat all injuries or illnesses in a single emergency department visit. It is therefore important that you follow up closely with [facility], your PCP, and/or your specialist(s). Call as soon as possible for an appointment. Thank you for your time and consideration. I look forward to speaking with you again soon. Please don't hesitate to call us if you have any questions. Problem Qualifiers
[2018-01-19 18:10] VITALS: O2SAT 98
[2018-01-19 19:18] LABS: BASO % 0.2 %; BASO ABS # 0.02 K/uL (0-0.2); EOS ABS # 0.11 K/uL (0-0.5); HEMATOCRIT 37.4 % (37-47); HEMOGLOBIN 12.1 g/dL (12.0-16.0); IG# 0.03 K/uL (0.00-0.02); LYMPH % 29.8 %; LYMPH ABS # 3.24 K/uL (1.2-3.4); MEAN CELL VOLUME 92.3 fL (80-100); MEAN CORPUSCULAR HEMOGLOBIN 29.9 pg (25-34); MEAN CORPUSCULAR HGB CONC 32.4 g/dl (32-36); MEAN PLATELET VOLUME 10.8 fL (7.4-10.4); MONO ABS # 0.65 K/uL (0.11-0.59); NEUT % 62.7 %; NEUT ABS # 6.81 K/uL (1.4-6.5); PLATELET COUNT 260 K/uL (130-400); RED CELL DISTRIBUTION WIDTH CV 13.8 % (11.5-14.5); RED CELL DISTRIBUTION WIDTH SD 46.9 fL (36.4-46.3); WHITE BLOOD COUNT 10.86 K/uL (4.8-10.8)
[2018-01-19 19:52] LABS: ALBUMIN 3.5 gm/dl (3.4-5.0); ALKALINE PHOSPHATASE 94 U/L (45-117); ALT/SGPT 21 U/L (12-78); AST/SGOT 13 U/L (15-37); BLOOD UREA NITROGEN 9 mg/dl (7-18); CALCIUM 8.7 mg/dl (8.5-10.1); CARBON DIOXIDE 24 mmol/L (21-32); CREATININE 0.75 mg/dl (0.60-1.20); GLUCOSE 84 mg/dl (70-99); PHOSPHORUS 3.1 mg/dl (2.5-4.9); POTASSIUM 3.3 mmol/L (3.5-5.1); SODIUM 141 mmol/L (136-145); TOTAL PROTEIN 7.1 gm/dl (6.4-8.2)
[2018-01-19] MEDS ORDERED: POTASSIUM CHLORIDE 20 MEQ TABCR PO STA (19:58)
[2018-01-19] MEDS ORDERED: POTASSIUM CHLORIDE 10 MEQ TABCR ONE (20:09)
[2018-01-19 20:34] VITALS: BP 116/75; PULSE 87; O2SAT 97
== END 2018-01-19 20:39 | disposition home or self-care (01) ==
LOC: C.EDB 17:07 → C.EDA 20:39
DX: R42 Dizziness and giddiness (principal); E87.6 Hypokalemia; Z71.6 Tobacco abuse counseling; F17.210 Nicotine dependence, cigarettes, uncomplicated; Z87.442 Personal history of urinary calculi

== ENCOUNTER 2018-11-28 12:18 | Observation (INO) ==
--- OUTSIDE RECORDS SUMMARY | 2018-11-28 12:20 | External Medical Summary | Continuity of Care Document ---
:1975 Author Name Quang M.Rui Address Unavailable Unavailable , Care Team Providers Name Role Phone Unavailable Unavailable Unavailable YOHN, K Unavailable Unavailable Unavailable Unavailable Unavailable Problems Rash (782.1) (R21) Depression with anxiety (300.4) (F41.8) Menorrhagia (626.2) (N92.0) Hirsutism (704.1) (L68.0) Encounter for routine gynecological examination (V72.31) (Z0 1.419) Gallstones (574.20) (K80.20) Dysuria (788.1) (R30.0) Pain due to ureteral stent (996.76) (T83.84XA) Left ureteral stone (592.1) (N20.1) Calculus of kidney (592.0) (N20.0) Flank pain (789.09) (R10.9) Nephrolithiasis (592.0) (N20.0) Allergies and Adverse Reactions oxybutynin (Allergy) Reaction: Swelling Medications No Reported Medications , M.D. Refills: 0 Procedures History of Section Status: Comp leted History of Back Surgery Status: Complete d History of Surgically Induced S tatus: Completed History of Kidney Surgery Status: Comple marc Immunizations Immunizations not documented Family History Grandmother Family history of Diabetes Mellitus (V18.0) Status: Active Father Family history of Hypertension (V17.49) Status: Active Family history of cardiac disorder (V17.49) (Z82.49) Status: Active Family history of hypertension (V17.49) (Z82.49) Status: Act louise Social History - Smoking Status Smoker. current status unknown Plan of Treatment Planned Observations Planned Goals not documented Results No Known Results Results not documented Encounters Appointment; Liat Mcbride CRNP 28-Jun-2017 13:00 Encounter Diagnosis: Problem not documented
[2018-11-28 12:56] LABS: Basophils # (auto) 0.03 K/uL (0-0.2); Basophils % (auto) 0.3 %; Eosinophils % (auto) 1.7 %; Hematocrit (blood only) 39.2 % (37-47); Hemoglobin 12.9 g/dL (12.0-16.0); Immature Granulocytes # (auto) 0.03 K/uL (0.00-0.02); Immature Granulocytes % (auto) 0.3 %; Lymphocytes # (auto) 3.32 K/uL (1.2-3.4); Lymphocytes % (auto) 28.7 %; Mean Corpuscular Hgb Conc 32.9 g/dL (32-36); Mean Corpuscular Volume 92.9 fL (80-100); Mean Platelet Volume 10.7 fL (7.4-10.4); Monocytes # (auto) 0.81 K/uL (0.11-0.59); Neutrophils # (auto) 7.17 K/uL (1.4-6.5); Platelet Count 262 K/uL (130-400); RDW Standard Deviation 47.9 fL (36.4-46.3); Red Blood Count 4.22 M/uL (4.2-5.4); White Blood Count 11.56 K/uL (4.8-10.8)
--- NOTE | 2018-11-28 13:03 | CT Scan Report ---
CT head/brain wo con CLINICAL HISTORY: 43 years-old Female with h/o post coital SHEARER. Acute headache TECHNIQUE: Multiple axial CT images of the head were obtained without contrast. A dose lowering tech nique was utilized adhering to the principles of ALARA. CT DOSE: 614.27 mGy.cm COMPARISON: None. FINDINGS: No acute intracranial hemorrhage, midline shift, intracranial mass, hydrocephalus, territorial ischem ia or abnormal extra-axial collection. The calvarium is intact. The paranasal sinuses, mastoid air cells, and middle ear cavities are clear . IMPRESSION: No acute intracranial abnormality. The above report was generated using voice recognition software. It may contain grammatical, syntax o r spelling errors. Electronically signed by: Eliel Brumfield M.D. 11/28/2018 1:02 PM
[2018-11-28 13:11] LABS: Alanine Aminotransferase 22 U/L (12-78); Albumin Level 3.5 gm/dl (3.4-5.0); Aspartate Aminotransferase 10 U/L (15-37); BUN Creatinine Ratio 10.1 (10-20); Blood Urea Nitrogen 8 mg/dl (7-18); Calcium 8.7 mg/dl (8.5-10.1); Carbon Dioxide 25 mmol/L (21-32); Chloride 108 mmol/L (98-107); Creatinine Clr Calc Pharmacy 111.6 ml/min; D Dimer 320 ug/L FEU (0-500); Est GFR (Non-African American) 92.3; Glucose 109 mg/dl (70-99); INR 0.9 (0.9-1.1); Partial Thromboplastin Time 26.8 Seconds (21.0-31.0); Potassium 3.5 mmol/L (3.5-5.1); Prothrombin Time 9.6 Seconds (9.0-12.0); Sodium 141 mmol/L (136-145)
[2018-11-28 13:16] LABS: Alkaline Phosphatase 99 U/L (45-117); Bilirubin,Total 0.3 mg/dl (0.2-1); Globulin 3.7 gm/dl (2.5-4.0); Total Protein 7.2 gm/dl (6.4-8.2); Troponin I < 0.015 ng/ml (0-0.045)
[2018-11-28] MEDS ORDERED: NITROGLYCERIN SL 0.4 MG/TAB TAB SL STA ×2 (13:46)
[2018-11-28] MEDS ORDERED: ASPIRIN CHEW 324 MG PO STA (13:46)
--- NOTE | 2018-11-28 13:51 | XRay Report ---
XR chest 1V portable CLINICAL HISTORY: Chest Pain COMPARISON STUDY: Chest radiograph July 07, 2016. FINDINGS: Lung volumes are normal. Lungs are clear. There is no pneumothorax or pleural effusion. Car diac size is normal. Mediastinal contours are normal. There is no evidence for pulmonary edema. IMPRESSION: No acute cardiopulmonary findings. Electronically signed by: Sean Zarate M.D. 11/28/2018 1:50 PM
--- NOTE | 2018-11-28 14:33 | History & Physical Report ---
Date of Service November 28, 2018 Assessment & Plan (1) Atypical chest pain: - Admit to tele for observation for r/o - Trend cardiac biomarkers, initial set and second set were both negative. No plans to perform cardiac cath at this time. Will trend next trop this evening. - EKG reviewed as above- nonspecific ST wave abnormalities noted - Check 2 D echo was reviewed by Dr. Powell - no acute findings - discussed with him at bedside - If negative enzymes can consider a stress test tomorrow morning. - PT/OT consulted (2) Migraine: - Neurology consulted for headache/migraine workup as the presentation is atypical (3) Tobacco abuse: -Patient states smokes 5 to 7 cigarettes/day, will order nicotine patch -Cessation encouraged at bedside (4) Obesity (BMI 35.0-39.9 without comorbidity): -Diet and exercise to be encouraged upon discharge -BMI 36.2 (5) DVT prophylaxis: - teds, heparin subq History of Present Illness Primary Care Provider: Seema Mendoza This is a 43 yo F without significant PMHx who presented to her PCPs office this morning for work up of headache which has been ongoing for about 2 weeks. She notes that about 2 weeks ago, developed severe post-coital headache/migraine which lasted a few days, and never completely subsided. She has never had a history of headaches like this before in the past. Patient notes that anytime that she became excited, stressed, angry that headaches seem to be worse. Patient tried [id number] medications including Aleve, aspirin, Tylenol without relief. Patient had a bathroom which was being refinished today however the vanity did not fit which stressed her out and became angry. Upon driving to work patient developed stabbing-like chest pains on the left side which radiated into her shoulder blades the left arm and up into her jaw. Patient admits to lightheadedness and dizziness during that time. No complaints of shortness of breath. Her headache was not present upon her PCP visit today. Pt also notes that her last period started 2d after having intercourse, however denies hx of migraines with menses in the past. Allergies Allergy/AdvReac Type Severity Reaction Status Date / Time No Known Allergies Allergy Unverified 11/28/18 13:11 Home Medications Home Medications Medication Instructions Recorded Confirmed Type ibuprofen 200 mg PO Q6H PRN 11/28/18 11/28/18 History Past Med/Surg History Medical History Hx of cataract Hx of renal calculi Family History Other S/P triple vessel bypass Social History Preferred Language: Georgian Communication Ability: Effective Beliefs That Will Affect Care: None marital status: Current Living Situation: Spouse current occupational status: employed Other Information That Helps Us Care for You: No Feels Safe at Home: Yes Safety Concerns: Feels Safe At This Time Smoking Status: Current every day smoker Tobacco Type: cigarettes Cigarettes Per Day: 7 Hx Alcohol Use: Yes Hx Substance Use: No Review of Systems Review of Systems: Constitutional: No fever, sweats or chills, + headache Eyes: No diplopia, no worsening or blurred vision ENT: normal hearing, no trouble swallowing Respiratory: No cough, sputum, dyspnea at rest or on exertion Cardiovascular: As per HPI. Abdomen: No pain, nausea, vomiting, diarrhea or constipation Musculoskeletal: No joint pain, calf pain, swelling Neurologic: No weakness, numbness/tingling, or balance problems Psychiatric: No anxiety or depression Skin: No rash or itch Physical Exam Physical Exam: General: awake, alert, no apparent distress Head: Normocephalic, atraumatic ENT: PERRL, EOMI, no pharyngeal exudate, mucous membranes moist Chest: nontender on palpation, Clear to auscultation, on room air, no adventitious breath sounds Cardiac: Regular rate and rhythm, no murmur, no JVD, normal peripheral pulses, good capillary refill Abdominal: NABS x 4 quadrants, soft, nontender to palpation, no rebound, guarding or tenderness Extremities: Normal inspection, no peripheral edema or erythema, calfs nontender to palpation Psych: Normal mood and affect Neuro: AAO x 3, strength intact bilaterally and related 5/5, no motor deficits, speech is clear, no peripheral sensory deficits Constitutional: WD/WN, vitals as above Eyes: normal visual cortez by confrontation and + anicteric sclerae Neck: normal visual inspection and trachea midline Respiratory: normal respiratory effort, lungs clear to auscultation Cardiovascular: Rate/Rhythm: regular rate and regular rhythm Gastrointestinal (Abdomen): Inspection/Auscultation: abdomen not distended Percussion/Palpation: abdomen soft; abdomen nontender Musculoskeletal: Head/Neck/Chest: normocephalic and head atraumatic Neg for peripheral LE edema, + pedal pulses L sided lateral costals TTP just lateral and inferior to breast Skin: no rashes, warm and dry Neurologic: awake; not confused Speech / Cognition: normal speech Psychiatric: A+Ox3, euthymic affect Lymphatic: Exam as done by Kaitlynn Hancock DO Results & Data Vital Signs (Past 12 Hours) Vital Signs Temp Pulse Resp BP Pulse Ox 11/28/18 14:00 79 19 130/72 98 11/28/18 13:30 89 18 125/106 H 99 11/28/18 13:00 94 H 20 130/83 98 11/28/18 12:43 95 11/28/18 12:20 36.9 C 103 H 24 138/91 92 Diagnostic Findings XR chest 1V portable CLINICAL HISTORY: Chest Pain COMPARISON STUDY: Chest radiograph July 07, 2016. FINDINGS: Lung volumes are normal. Lungs are clear. There is no pneumothorax or pleural effusion. Cardiac size is normal. Mediastinal contours are normal. There is no evidence for pulmonary edema. IMPRESSION: No acute cardiopulmonary findings. CT head/brain wo con CLINICAL HISTORY: 43 years-old Female with h/o post coital SHEARER. Acute headache TECHNIQUE: Multiple axial CT images of the head were obtained without contrast. A dose lowering technique was utilized adhering to the principles of ALARA. CT DOSE: 614.27 mGy.cm COMPARISON: None. FINDINGS: No acute intracranial hemorrhage, midline shift, intracranial mass, hydrocephalus, territorial ischemia or abnormal extra-axial collection. The calvarium is intact. The paranasal sinuses, mastoid air cells, and middle ear cavities are clear. IMPRESSION: No acute intracranial abnormality. ECG Additional Comments: 28-NOV-2018 12:27:23 [facility]-EDSTAT ROUTINE RETRIEVAL Normal sinus rhythm Nonspecific ST and T wave abnormality Abnormal ECG When compared with ECG of 19-JAN-2018 18:10, Nonspecific T wave abnormality now evident in Anterior leads 25mm/s 10mm/mV 150Hz 9.0.8 12SL 241 YAQUELIN: 16 Unconfirmed Vent. rate 98 BPM [place] interval 134 ms QRS duration 86 ms QT/QTc 328/418 ms P-R-T axes 30 -1 -2 Code Status & VTE Plan Code Status Full code Supervising Physician Co-Signing Physician Notes Pt seen and examined by me. Nursing was assessing pt as I walked into room. She had just had an episode of chest pain that was the same as the one from this AM. It went into L axillary region. VSS. She was at rest at onset and it lasted about 1 minute. Resolved spontaneously. No nitro given. No SOB, n/v with this. Pt states she has a different pain on her L lateral chest wall under her breast that she can reproduce. This is different than the other chest pain. Headache resolved yesterday. Has not returned. Tolerating PO without issue. Agree with HPI/ROS as noted by PA See above for my exam in PE section Agree with plan as outlined above Chest pain: trop neg x2, EKG changes noted Bedside ECHO reported as neg Cardiology is planning to monitor overnight, possible cath if ongoing sx Headache: unusual presentation CT head neg for acute CBC, PRP WNL Neuro c/s pending Hx of heavy tick environment, no recent bites, lyme pending given unusual presentation of sx Lateral wall chest pain that is reproducible and more superficial PG Care Time/CCT Total # of Minutes Spent Total Time Spent with Patient: Total time spent is greater than 50% in coordination of care (as documented) at patient's floor/unit and/or counseling patient:
[2018-11-28] MEDS ORDERED: ONDANSETRON INJ 2 MG/ML 2 ML VIAL IV PRN (14:35)
[2018-11-28] MEDS ORDERED: ACETAMINOPHEN 325 MG TAB PO PRN (14:35)
--- NOTE | 2018-11-28 15:41 | Cardiology Consultation ---
Date of Consultation November 28, 2018 Assessment & Plan (1) Atypical chest pain: Her chest discomfort is not typical of angina, it comes and goes which would be somewhat atypical for severe coronary stenosis and she had no exertional symptoms including relatively strenuous activity over the weekend. With negative enzymes, no obvious abnormalities on echocardiography and only nonspecific changes on her electrocardiogram I do not think her symptoms are primarily cardiac. I do not think we should pursue invasive evaluation at this point. Depending on whether we identify a cause of her symptoms we may want to consider stress testing but I would not do that today. (2) Abnormal ECG: She has an abnormal electrocardiogram with inferolateral T wave abnormalities including some T wave inversion although not deeply depressed. It is different from an electrocardiogram 1 year ago. 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 I would continue to follow electrocardiograms for progression or resolution. Resolving pericarditis could look like this as well, however her symptoms are recent and this does not look like acute pericarditis. History of Present Illness Reason for Consultation: Chest discomfort and abnormal ECG History of Present Illness This is a very pleasant 43-year-old woman who developed a left-sided chest discomfort this morning, this occurred while showering and is continued on and off until recently. Her general medical history however starts about 2 weeks ago when she developed a sudden severe stabbing headache during sex, she tells me that was the worst headache she is ever had and since then she has had on and off headaches although not as severe. That may not be related, however it is unusual and she does not have a history of having headaches in the past. She has not had any difficulty with exercise, she was in [place] over the weekend and was walking around with no difficulty (other than having a headache) and with no chest discomfort. She does not have a history of palpitations or difficulty with exercise. The discomfort that she had today started while she was showering, is located in the left chest and shoulder area (not midsternal), seems to radiate to her left arm and shoulder or at least is present there as well. She also has some other symptoms which is a fluttering type sensation in her chest and also which she describes as "zingers" which are brief sudden episodes of some type of discomfort. The symptoms wax and wane, but may only last a few seconds or a few minutes, then a resolve and then come back. They are not exertional, they are not related to shortness of breath and they are not specifically related to the fluttering sensation that she describes. She did receive nitroglycerin in the emergency room as well as aspirin at the moment she feels well, however the symptoms have been waxing and waning. In the emergency room she did have a CT scan which was negative, she does have nonspecific T wave abnormalities on her electrocardiogram which are different than her prior electrocardiogram she has an file. Cardiac enzymes x2 are negative although only several hours apart. Allergies Allergy/AdvReac Type Severity Reaction Status Date / Time No Known Allergies Allergy Unverified 11/28/18 13:11 Home Medications Home Medications Medication Instructions Recorded Confirmed Type ibuprofen 200 mg PO Q6H PRN 11/28/18 11/28/18 History Patient History Medical History Hx of cataract Hx of renal calculi Family History Other S/P triple vessel bypass Social History Preferred Language: Khmer Communication Ability: Effective Beliefs That Will Affect Care: None marital status: Current Living Situation: Spouse current occupational status: employed Other Information That Helps Us Care for You: No Feels Safe at Home: Yes Safety Concerns: Feels Safe At This Time Smoking Status: Current every day smoker Tobacco Type: cigarettes Cigarettes Per Day: 7 Hx Alcohol Use: Yes Hx Substance Use: No Review of Systems Review of Systems: All systems reviewed & are unremarkable except as noted in HPI & below Physical Exam Physical Exam: Constitutional: Alert, cooperative and in no distress. HEENT: Unremarkable Neck: No jugular venous distention, carotid pulses are normal and equal bilaterally without bruits. Pulmonary: Clear to auscultation bilaterally. Cardiac: Regular rhythm with no murmur, gallop or rub. Abdomen: Soft, nontender with normal bowel sounds. Extremities: No edema. Distal pulses intact. Neurologic: No focal findings. Gait is steady. Skin: No rash, ecchymoses or petechiae. Results & Data Vital Signs (Past 12 Hours) Vital Signs Temp Pulse Resp BP Pulse Ox 11/28/18 15:00 81 20 114/68 98 11/28/18 14:30 84 12 115/74 95 11/28/18 14:29 80 17 118/76 96 11/28/18 14:00 79 19 130/72 98 11/28/18 13:30 89 18 125/106 H 99 11/28/18 13:00 94 H 20 130/83 98 11/28/18 12:43 95 11/28/18 12:20 36.9 C 103 H 24 138/91 92 Diagnostic Findings Electrocardiogram done today at 12:30 PM shows sinus rhythm at 98 bpm with nonspecific T wave abnormalities including inferior slight T wave inversion and anterolateral T wave inversion and T wave abnormalities. A prior electrocardiogram January 19, 2018 does not show these abnormalities. A CT scan done today is negative for abnormality A chest x-ray done today is unremarkable
--- NOTE | 2018-11-28 16:29 | Emergency Department Note ---
Entered by Alexa Sneed acting as a scribe for History of Present Illness General Chief complaint: Chest Pain Stated complaint: CHEST PAIN - NECK ISSUES Time Seen by Provider: 11/28/18 12:28 Source: patient History of Present Illness Onset (ago): hour(s) (4.5) Location: chest Pain Consistency: + intermittent Maximum Pain Intensity: 3 Quality: + other ("shock") Exacerbated By: + movement (exertion, turning her head to the right) Associated symptoms: + denies other symptoms (neck pain, numbness, vision changes, difficulty moving, leg swelling) and + headaches; no diaphoresis and no nausea/vomiting The patient is a 43 female w/ PMHx kidney stones and cataracts who presents to the ED w/ CC of intermittent chest pain starting 4.5 hours ago. The patient states that this morning she had just gotten her custom made vanities at the house when they realized that they didnt fit in her bathroom. She states that she got mad and when she did, she started having left sided chest pain. She reports that the pain radiates down into her armpit and up to right under her collar bone. She reports that the pain is like a shock when it comes and then it tingles afterwards. She notes that it is worse with walking and turning her head to the right. The patient states that she had an appointment with her PCP today and when she mentioned the chest pain, they sent her here to the ED. She notes that she had the appointment because 2 weeks ago while having sex she got an instant headache that was the worst pain in her life. She reports that it was right at the top of her head and was a stabbing pain. She reports that she tried taking Motrin and Tylenol, but it didnt go away till an hour later. She reports that it hasnt come back since then, but she has had these strange headaches across the back of her head. The patient notes that she is a smoker and her LNMP was 2 weeks ago. The patient denies a history of heart or lung disease, neck pain, numbness, vision changes, difficulty moving, taking any aspirin, nausea, vomiting, diaphoresis, leg swelling, and a history of blood clots. Home Medications Home Medications Medication Instructions Recorded Confirmed Type ibuprofen 200 mg PO Q6H PRN 11/28/18 11/28/18 History Allergies Allergy/AdvReac Type Severity Reaction Status Date / Time No Known Allergies Allergy Unverified 11/28/18 13:11 Past Med/Surg History Medical History Hx of cataract Hx of renal calculi Family History Other S/P triple vessel bypass Social History Preferred Language: Uzbek Communication Ability: Effective Beliefs That Will Affect Care: None marital status: Current Living Situation: Spouse current occupational status: employed Other Information That Helps Us Care for You: No Feels Safe at Home: Yes Safety Concerns: Feels Safe At This Time Smoking Status: Current every day smoker Tobacco Type: cigarettes Cigarettes P er Day: 7 Hx Alcohol Use: Yes Hx Substance Use: No Review of Systems See HPI for pertinent positives & negatives. and A total of 10 systems reviewed and were otherwise negative Physical Exam Vital Signs Vital Signs - 24 hr 11/28/18 12:20 11/28/18 12:43 11/28/18 13:00 Temperature 36.9 C Temperature Source Oral Sepsis Recent Fever Within 48 Hours No Sepsis Action Taken by Nursing No Action Required Pulse Rate 103 H 94 H Pulse Rate from SpO2 Sensor 94 H Pulse Rhythm Regular Pulse Strength Normal Respiratory Rate 24 20 Respiratory Effort / Characteristics Non-Labored Respiratory Depth Normal Respiratory Pattern Regular Blood Pressure 138/91 130/83 Blood Pressure Mean 106 98 Blood Pressure Position Sitting Pulse Oximetry 92 95 98 Oxygen Delivery Method Room Air Room Air Room Air 11/28/18 13:30 11/28/18 14:00 11/28/18 14:29 Temperature Temperature Source Sepsis Recent Fever Within 48 Hours Sepsis Action Taken by Nursing Pulse Rate 89 79 80 Pulse Rate from SpO2 Sensor 88 80 83 Pulse Rhythm Pulse Strength Respiratory Rate 18 19 17 Respiratory Effort / Characteristics Respiratory Depth Respiratory Pattern Blood Pressure 125/106 H 130/72 118/76 Blood Pressure Mean 112 91 90 Blood Pressure Position Pulse Oximetry 99 98 96 Oxygen Delivery Method 11/28/18 14:30 Temperature Temperature Source Sepsis Recent Fever Within 48 Hours Sepsis Action Taken by Nursing Pulse Rate 84 Pulse Rate from SpO2 Sensor 83 Pulse Rhythm Pulse Strength Respiratory Rate 12 Respiratory Effort / Characteristics Respiratory Depth Respiratory Pattern Blood Pressure 115/74 Blood Pressure Mean 87 Blood Pressure Position Pulse Oximetry 95 Oxygen Delivery Method GENERAL: Well appearing, well nourished, NAD, non-toxic. EYE EXAM: Normal conjunctiva. PERRL, no anisocoria and EOM's grossly intact w/o pain. OROPHARYNX: Moist mucous membranes. Grossly normal dentition. NECK: Supple, no nuchal rigidity, no adenopathy, non-tender. No signs of meningismus. LUNGS: Clear to auscultation. Normal chest wall mechanics. HEART: NSR, no MRG. ABDOMEN: Abdomen soft, non-tender, normo-active bowel sounds, no masses, no rebound or guarding. BACK: No CVA TTP. SKIN: No rashes and no bruising. UPPER EXTREMITIES: Upper extremities are grossly normal. LOWER EXTREMITIES: No pitting edema. No calf pain. Negative Jung's sign. NEURO EXAM: A&O x3, cranial nerves II-XII grossly intact, normal speech, 5/5 strength throughout, no sensory deficits, good finger to nose, no pronator drift, moves all 4 extremities on command w/o issue. Course 1232: Past medical records reviewed. The patient was evaluated in room B10. A complete history and physical exam was performed. 1344: I reevaluated the patient and updated her on her test results. I discussed the treatment plan with her. She verbally agrees and understands. 1349: I discussed the patient's case with Dr. Britt Cardiology. He recomnends bringing the patient in and may do a cath today. He doesn't want Heparin given right now. 1401: I discussed the patient's case with Dr. Calderon [facility]. She will evaluate the patient for further management. Consultations Consultation #1: I discussed the patient's case with Dr. Britt Cardiology. He recomnends bringing the patient in and may do a cath today. He doesn't want Heparin given right now. Time: 13:49 Consultation #2: I discussed the patient's case with Dr. Calderon [facility] Hospital[facility]. She will evaluate the patient for further management. Time: 14:01 Administered Medications Discontinued Medications Aspirin (Aspirin) 324 mg PO NOW STA Stop: 11/28/18 13:47 Last Admin: 11/28/18 14:21 Dose: 324 mg Documented by: [id number] Nitroglycerin (Nitrostat) 0.4 mg SL NOW STA Stop: 11/28/18 13:47 Last Admin: 11/28/18 14:21 Dose: 0.4 mg Documented by: [id number] Nitroglycerin (Nitrostat) 0.4 mg SL NOW STA Stop: 11/28/18 13:47 Last Admin: 11/28/18 14:45 Dose: Not Given Documented by: [id number] Medical Decision Making Medical Records Attestation: I reviewed the patient's medical records. Home Medications Current Medication List: was personally reviewed by me Laboratory Data Attestation: I reviewed the patient's lab results. Result diagrams: 11/28/18 12:46 11/28/18 12:46 Lab Results 11/28/18 11/28/18 11/28/18 Range/Units 12:46 12:46 12:46 WBC 11.56 H (4.8-10.8) K/uL RBC 4.22 (4.2-5.4) M/uL Hgb 12.9 (12.0-16.0) g/dL Hct 39.2 (37-47) % MCV 92.9 (80-100) fL MCH 30.6 (25-34) pg MCHC 32.9 (32-36) g/dL RDW Std Deviation 47.9 H (36.4-46.3) fL RDW Coeff of Vinay 14.0 (11.5-14.5) % Plt Count 262 (130-400) K/uL MPV 10.7 H (7.4-10.4) fL Immature Gran % (Auto) 0.3 % Neut % (Auto) 62.0 % Lymph % (Auto) 28.7 % Sutton % (Auto) 7.0 % Eos % (Auto) 1.7 % Baso % (Auto) 0.3 % Immature Gran # (Auto) 0.03 H (0.00-0.02) K/uL Neut # (Auto) 7.17 H (1.4-6.5) K/uL Lymph # (Auto) 3.32 (1.2-3.4) K/uL Sutton # (Auto) 0.81 H (0.11-0.59) K/uL Eos # (Auto) 0.20 (0-0.5) K/uL Baso # (Auto) 0.03 (0-0.2) K/uL PT 9.6 (9.0-12.0) Seconds INR 0.9 (0.9-1.1) APTT 26.8 (21.0-31.0) Seconds PTT Ratio 1.0 D-Dimer 320 (0-500) ug/L FEU Sodium 141 (136-145) mmol/L Potassium 3.5 (3.5-5.1) mmol/L Chloride 108 H (98-107) mmol/L Carbon Dioxide 25 (21-32) mmol/L Anion Gap 8.0 (3-11) BUN 8 (7-18) mg/dl Creatinine 0.79 (0.6-1.2) mg/dl Est Cr Clr Drug Dosing 111.6 ml/min Est GFR ( Amer) 107.0 Est GFR (Non-Af Amer) 92.3 BUN/Creatinine Ratio 10.1 (10-20) Glucose 109 H (70-99) mg/dl Calcium 8.7 (8.5-10.1) mg/dl Total Bilirubin 0.3 (0.2-1) mg/dl AST 10 L (15-37) U/L ALT 22 (12-78) U/L Alkaline Phosphatase 99 (45-117) U/L Troponin I < 0.015 (0-0.045) ng/ml Total Protein 7.2 (6.4-8.2) gm/dl Albumin 3.5 (3.4-5.0) gm/dl Globulin 3.7 (2.5-4.0) gm/dl Albumin/Globulin Ratio 1.0 (0.9-2) Lipase 154 (73-393) U/L 11/28/18 Range/Units 12:47 WBC (4.8-10.8) K/uL RBC (4.2-5.4) M/uL Hgb (12.0-16.0) g/dL Hct (37-47) % MCV (80-100) fL MCH (25-34) pg MCHC (32-36) g/dL RDW Std Deviation (36.4-46.3) fL RDW Coeff of Vinay (11.5-14.5) % Plt Count (130-400) K/uL MPV (7.4-10.4) fL Immature Gran % (Auto) % Neut % (Auto) % Lymph % (Auto) % Sutton % (Auto) % Eos % (Auto) % Baso % (Auto) % Immature Gran # (Auto) (0.00-0.02) K/uL Neut # (Auto) (1.4-6.5) K/uL Lymph # (Auto) (1.2-3.4) K/uL Sutton # (Auto) (0.11-0.59) K/uL Eos # (Auto) (0-0.5) K/uL Baso # (Auto) (0-0.2) K/uL PT (9.0-12.0) Seconds INR (0.9-1.1) APTT (21.0-31.0) Seconds PTT Ratio D-Dimer (0-500) ug/L FEU Sodium (136-145) mmol/L Potassium (3.5-5.1) mmol/L Chloride (98-107) mmol/L Carbon Dioxide (21-32) mmol/L Anion Gap (3-11) BUN (7-18) mg/dl Creatinine (0.6-1.2) mg/dl Est Cr Clr Drug Dosing ml/min Est GFR ( Amer) Est GFR (Non-Af Amer) BUN/Creatinine Ratio (10-20) Glucose (70-99) mg/dl Calcium (8.5-10.1) mg/dl Total Bilirubin (0.2-1) mg/dl AST (15-37) U/L ALT (12-78) U/L Alkaline Phosphatase (45-117) U/L Troponin I < 0.015 (0-0.045) ng/ml Total Protein (6.4-8.2) gm/dl Albumin (3.4-5.0) gm/dl Globulin (2.5-4.0) gm/dl Albumin/Globulin Ratio (0.9-2) Lipase (73-393) U/L Imaging Data Radiologist's Impression: Radiology results as stated below per my review and the radiologist's interpretation: XR chest 1V portable CLINICAL HISTORY: Chest Pain COMPARISON STUDY: Chest radiograph July 07, 2016. FINDINGS: Lung volumes are normal. Lungs are clear. There is no pneumothorax or pleural effusion. Cardiac size is normal. Mediastinal contours are normal. There is no evidence for pulmonary edema. IMPRESSION: No acute cardiopulmonary findings. Electronically signed by: Sean Zarate M.D. 11/28/2018 1:[address] head/brain wo con CLINICAL HISTORY: 43 years-old Female with h/o post coital SHEARER. Acute headache TECHNIQUE: Multiple axial CT images of the head were obtained without contrast. A dose lowering technique was utilized adhering to the principles of ALARA. CT DOSE: 614.27 mGy.cm COMPARISON: None. FINDINGS: No acute intracranial hemorrhage, midline shift, intracranial mass, hydrocephalus, territorial ischemia or abnormal extra-axial collection. The calvarium is intact. The paranasal sinuses, mastoid air cells, and middle ear cavities are clear. IMPRESSION: No acute intracranial abnormality. The above report was generated using voice recognition software. It may contain grammatical, syntax or spelling errors. Electronically signed by: Eliel Brumfield M.D. 11/28/2018 1:02 PM ECG Data Attestation: I personally reviewed and interpreted this ECG as follows: Indication: chest pain Rate (beats per minute): 88 Rhythm: normal sinus Findings: + other (normal intervals), + ST depression (in lateral leads) and + T-wave inversion (lead 3 and aVF) Comparison ECG Date: from (01/19/2018) Change: the following changes noted (TWI in aVF are new, lateral depression are new) Blood Pressure Blood Pressure Findings: Normal blood pressure Blood Pressure Disposition: did not require urgent referral MDM Narrative The patient is a 43 female w/ PMHx kidney stones and cataracts who presents to the ED w/ CC of intermittent chest pain starting 4.5 hours ago. Differential diagnoses includes but is not limited to acute coronary syndrome, myocardial infarction, pericarditis, pulmonary embolus, aortic dissection, pneumonia, pneumothorax, musculoskeletal, shingles, esophageal. Patient was seen in eval at the bedside. The patient does relate that she has some left-sided chest pain she describes it as a shocking sensation and does radiate to the arm. Patient does states it is occasionally exertional and is intermittent. Patient does have a family history of triple bypass in her father at age 45. Patient is a smoker. Patient also does relate that she had a recent very severe postcoital headache approximately 1 week prior. The patient still has some persistent headache symptoms that have improved but not completely gone away. Patient did have blood work completed along with EKG troponin d-dimer and the patient did have a CT the brain completed. The patient does not complain current headache but has had intermittent chest pain. The patient was trialed on nitro and aspirin which did not make any sort of improvement but still has some intermittent discomfort. Patient does have some EKG changes. Troponin is not detectable. I did speak with the on-call pe manager who agreed with admission and will evaluate the patient. I did speak the on-call medicine service who agreed to evaluate the patient. The patient was counseled on smoking cessation. The patient was seen and evaluated by cardiology and admitted to the medicine service. Impression & Plan Atypical chest pain, Encounter for smoking cessation counseling Discharge Plan Visit Data *Final* Discharge Date/Time: 11/28/18 15:40 Chief Complaint: Chest Pain Stated Complaint: CHEST PAIN - NECK ISSUES ED Provider: Aldair Sanchez Discharge Problem: Atypical chest pain, Encounter for smoking cessation counseling Patient Disposition: Admitted As Inpatient Discharge Instructions Interventions: ED Discharge Assessment Last Done: 11/28/18 15:40 The scribe's documentation has been prepared under my direction and personally reviewed by me in its entirety. I confirm that the note above accurately reflects all work, treatment, procedures, and medical decision making performed by me.
[2018-11-28] MEDS ORDERED: KETOROLAC 30 MG/ML VIAL IV PRN (16:34)
[2018-11-28] MEDS ORDERED: NITROGLYCERIN SL 0.4 MG/TAB TAB ONE (16:50)
[2018-11-28 18:23] LABS: Lyme Ab IgG w/WB Rflx Negative (Negative); Lyme Ab IgM w/WB Rflx Negative (Negative)
[2018-11-29 07:03] LABS: Hematocrit (blood only) 37.6 % (37-47); Hemoglobin 12.1 g/dL (12.0-16.0); Mean Corpuscular Hgb Conc 32.2 g/dL (32-36); Mean Corpuscular Volume 93.5 fL (80-100); Mean Platelet Volume 10.7 fL (7.4-10.4); Platelet Count 227 K/uL (130-400); Red Blood Count 4.02 M/uL (4.2-5.4); White Blood Count 9.51 K/uL (4.8-10.8)
[2018-11-29 07:26] LABS: Albumin Level 2.8 gm/dl (3.4-5.0); BUN Creatinine Ratio 12.8 (10-20); Calcium 8.1 mg/dl (8.5-10.1); Creatinine Clr Calc Pharmacy 119.2 ml/min; Est GFR (African American) 115.8; Est GFR (Non-African American) 99.9; Magnesium 2.2 mg/dl (1.8-2.4)
[2018-11-29 07:29] LABS: Albumin Globulin Ratio 0.9 (0.9-2); Bilirubin,Total 0.2 mg/dl (0.2-1); Globulin 3.2 gm/dl (2.5-4.0); Phosphorus 3.1 mg/dl (2.5-4.9)
[2018-11-29] MEDS ORDERED: ENOXAPARIN INJ 40 MG/0.4 ML SYR SQ SCH (09:00)
--- NOTE | 2018-11-29 09:44 | Neurology Consultation ---
Date of Consultation November 29, 2018 Assessment & Plan (1) Coital headache: Coital headache occurring 2 weeks ago and persisting for about 12 days, resolved 2 days ago. Her headache was located primarily in the posterior regions with some radiation frontally and seemed to be worse with assuming an upright position and modestly improved with lying down. She may have had a spontaneous low CSF pressure headache which has subsequently resolved. She does have a history of lumbar spinal surgery which could in theory be a risk factor for spontaneous CSF hypotension due to a CSF leak. Of course, this potential diagnosis is simply conjecture. I would note that coital headaches typically resolve within a few hours and it would be atypical for such a headache to continue for nearly 2 weeks as her headache did. The timeframe of her headache and character seem to fit better with a low CSF pressure headache. Either way, she is symptomatically improved. She does not seem to require any specific treatment for headache at this time. I would not label her headache as migraine at this time. I do believe a brain MRI with and without contrast would be useful to potentially support a diagnosis of low CSF pressure or at least exclude other significant pathology. I will make further recommendations if necessary pending my review of the MRI. Please contact me if I may be of further assistance. History of Present Illness Reason for Consultation: Headache Requesting Physician: Mariana Lu PA-C Attending Physician: Kaitlynn Hancock DO History of Present Illness The patient is a 43-year-old female with a chief complaint of headache that began 2 weeks ago during sex. She describes the headache being primarily located in the occipital region with radiation frontally. The headaches seem to be worse with standing up and would improve moderately with lying down. Her headache was fairly persistent since its onset and she has been taking grno-ydu-ultikkw analgesics such as Excedrin and ibuprofen several times per day since its onset. Of note, she reports that her headache resolved 2 days ago and has not returned. She denies a history of migraine or frequent headaches of any type. She did report experiencing some associated light and sound sensitivity with her recent headache episode but no associated nausea. She denies experiencing any associated vision change although she does report a history of cataract surgery for the right eye fairly recently at some ongoing changes with her vision that are currently followed by her eye doctor. She indicates that she actually presented to the emergency department with a complaint of acute gabriella st pain that began several hours prior to admission. The chest pain was triggered by some stressors related to problems with home decorating as described in the emergency department record. Her chest pain has resolved. She does not have a known history of coronary artery disease. She has been evaluated by cardiology already. Allergies Allergy/AdvReac Type Severity Reaction Status Date / Time No Known Allergies Allergy Unverified 11/28/18 13:11 Home Medications Home Medications Medication Instructions Recorded Confirmed Type ibuprofen 200 mg PO Q6H PRN 11/28/18 11/28/18 History Patient History Medical History Hx of cataract Hx of renal calculi Family History Other S/P triple vessel bypass Social History Preferred Language: Welsh Communication Ability: Effective Beliefs That Will Affect Care: None marital status: Current Living Situation: Spouse current occupational status: employed Other Information That Helps Us Care for You: No Feels Safe at Home: Yes Safety Concerns: Feels Safe At This Time Smoking Status: Current every day smoker Tobacco Type: cigarettes Cigarettes Per Day: 7 Hx Alcohol Use: Yes Hx Substance Use: No Review of Systems Constitutional: no fever and no chills Eyes: as per Subjective / HPI; no blind spots and no diplopia Ear, Nose, Mouth, Throat: no ear pain, no tinnitus and no hearing loss Respiratory: no cough and no dyspnea Cardiovascular: as per Subjective / HPI and + chest pain Gastrointestinal: no abdominal pain and no vomiting Genitourinary: no dysuria Musculoskeletal: no myalgia Integumentary: no rash and no lesions Neurologic: as per Subjective / HPI Psychiatric: no depression and no anxiety Hematologic / Lymphatic: no easy bleeding Physical Exam Physical Exam: The patient is a well-developed, well-nourished adult female. She is lying comfortably in bed in no acute distress. She is alert and fully oriented. Recent and remote memory intact. Attention and concentration normal. Patient exhibits a normal spontaneous speech pattern as well as an age- appropriate fund of knowledge. Visual cortez full to confrontation. Visual acuity normal. Pupils equal round reactive to light and accommodation. Eye movements normal. Facial sensation intact. There is no facial droop or weakness. Hearing intact. Palate elevates to midline. Shoulder shrug intact. Tongue protrudes to midline. Sensation intact all modalities in all 4 limbs. Deep tendon reflexes intact and symmetrical for the arms and legs. Plantar responses downgoing bilaterally. There is no dysdiadochokinesia or dysmetria fsuiet-wj-jknh or lumb-bi-hrrt bilaterally. Ophthalmoscopic examination reveals normal-appearing optic disks and posterior segments. No papilledema or hemorrhages. Carotid pulses normal bilaterally, no bruits to auscultation. Gait and station normal. Patient exhibits normal muscle strength and tone for all 4 limbs. No atrophy. No abnormal movements observed. Results & Data Vital Signs (Past 12 Hours) Vital Signs Temp Pulse Pulse Resp BP Pulse Ox 11/29/18 07:39 36.7 C 69 17 100/63 100 11/29/18 03:31 36.9 C 72 16 117/78 98 11/29/18 00:00 36.5 C 71 80 16 116/78 99 Laboratory Results Recently completed labs reviewed. WBC 9.51, hemoglobin 12.1, hematocrit 37.6, platelet count 227, sodium 140, potassium 4.0, BUN 9, creatinine 0.74, glucose 109, calcium 8.1, magnesium 2.2, transaminases normal, Lyme antibodies negative Diagnostic Findings A CT of the head completed yesterday was negative for acute process or any significant abnormalities. Images and report reviewed. An electrocardiogram completed yesterday revealed a normal sinus rhythm, 91 bpm.
--- NOTE | 2018-11-29 13:13 | Cardiology Progress Note ---
Date of Service November 29, 2018 Assessment & Plan (1) Atypical chest pain: Chest pain was atypical, occurring at rest. Since then she has ambulated in the hallways without anginal symptoms. She does have risk factors however for CAD, including family history (father had first TN at the age of 45) and tobacco abuse. Stress echo recommended. She prefers to have this done as an outpatient. It was recommended that if she has any recurrent symptoms, call 911. Given her risk factors and atypical symptoms, can continue aspirin 81 mg daily on discharge until stress echo completed, if no contraindications. (2) Abnormal ECG: Nonspecific T-wave abnormality was initially present and has since subsided. Stress echo as above. (3) Tobacco abuse: It was strongly recommended that she stop smoking. (4) Disposition: She prefers to have her stress echo as an outpatient. Cardiology office will be contacted to help arrange this test for her. Please call with any other questions or concerns. Patient care discussed with Dr. Howe of the primary hospitalist service. Subjective When entering the room today, she asked when she could go home. She has not had any further chest pain today. She did have chest pain throughout the day yesterday intermittently. She describes her chest pain as left-sided chest pain throughout her entire left chest and left axilla. It felt like an electric shock and would last for seconds to minutes up to 5 minutes in duration. Symptoms were nonexertional. There is no associated shortness of breath. There was no trigger and no alleviating factor for her symptoms. She admits that she was quite angry yesterday morning shortly before her symptoms started. She denies syncope, near-syncope, palpitations, edema, bleeding, or shortness of breath. Review of systems: As above. Physical Exam Physical Exam: Gen.: No acute distress. Alert and oriented. HEENT: Anicteric sclera. Neck: No JVD. Cardiac: Regular. Normal S1-S2. No murmurs, rubs, or gallops. Pulmonary: Clear to auscultation bilaterally without wheezes, rales, or rhonchi. Abdomen: Soft, nontender, nondistended, with normoactive bowel sounds. No bruits noted. Extremities: 2+ radial pulses bilaterally. 2+ posterior tibialis pulses bilaterally. No edema or cyanosis. Psychiatric: Affect appears appropriate. Chest: Nontender to palpation. Results & Data Vital Signs (Past 12 Hours) Vital Signs Temp Pulse Resp BP Pulse Ox 11/29/18 11:58 36.3 C L 68 16 113/72 100 11/29/18 07:39 36.7 C 69 17 100/63 100 11/29/18 03:31 36.9 C 72 16 117/78 98 Laboratory Results Laboratory Results - last 24 hr 11/28/18 11/28/18 11/28/18 12:46 12:46 12:47 WBC RBC Hgb Hct MCV MCH MCHC RDW Std Deviation RDW Coeff of Vinay Plt Count MPV PT 9.6 INR 0.9 APTT 26.8 PTT Ratio 1.0 D-Dimer 320 Sodium 141 Potassium 3.5 Chloride 108 H Carbon Dioxide 25 Anion Gap 8.0 BUN 8 Creatinine 0.79 Est Cr Clr Drug Dosing 111.6 Est GFR ( Amer) 107.0 Est GFR (Non-Af Amer) 92.3 BUN/Creatinine Ratio 10.1 Glucose 109 H Calcium 8.7 Phosphorus Magnesium Total Bilirubin 0.3 AST 10 L ALT 22 Alkaline Phosphatase 99 Troponin I < 0.015 < 0.015 Total Protein 7.2 Albumin 3.5 Globulin 3.7 Albumin/Globulin Ratio 1.0 Lipase 154 Lyme Disease IgG Ab Lyme Disease IgM Ab 11/28/18 11/28/18 11/29/18 12:47 21:34 06:44 WBC 9.51 RBC 4.02 L Hgb 12.1 Hct 37.6 MCV 93.5 MCH 30.1 MCHC 32.2 RDW Std Deviation 48.0 H RDW Coeff of Vinay 14.0 Plt Count 227 MPV 10.7 H PT INR APTT PTT Ratio D-Dimer Sodium Potassium Chloride Carbon Dioxide Anion Gap BUN Creatinine Est Cr Clr Drug Dosing Est GFR ( Amer) Est GFR (Non-Af Amer) BUN/Creatinine Ratio Glucose Calcium Phosphorus Magnesium Total Bilirubin AST ALT Alkaline Phosphatase Troponin I < 0.015 Total Protein Albumin Globulin Albumin/Globulin Ratio Lipase Lyme Disease IgG Ab Negative Lyme Disease IgM Ab Negative 11/29/18 11/29/18 06:44 06:44 WBC RBC Hgb Hct MCV MCH MCHC RDW Std Deviation RDW Coeff of Vinay Plt Count MPV PT INR APTT PTT Ratio D-Dimer Sodium 140 Potassium 4.0 Chloride 110 H Carbon Dioxide 26 Anion Gap 5.0 BUN 9 Creatinine 0.74 Est Cr Clr Drug Dosing 119.2 Est GFR ( Amer) 115.8 Est GFR (Non-Af Amer) 99.9 BUN/Creatinine Ratio 12.8 Glucose 109 H Calcium 8.1 L Phosphorus 3.1 Magnesium 2.2 Total Bilirubin 0.2 AST 11 L ALT 20 Alkaline Phosphatase 84 Troponin I < 0.015 Total Protein 6.0 L Albumin 2.8 L Globulin 3.2 Albumin/Globulin Ratio 0.9 Lipase Lyme Disease IgG Ab Lyme Disease IgM Ab Diagnostic Findings ECGs personally reviewed: ECG 11/29/2018 at 7:56 a.m.: Sinus rhythm at 78 bpm. Normal ECG. Anterolateral T-wave abnormality no longer present. ECG 11/28/2018 at 12:27 p.m.: Sinus rhythm [address]/T-wave abnormality. ECG 11/28/2018 at 6:50 p.m.: NSR 91 bpm. Nonspecific T-wave abnormality. Echo 11/28/2018: Normal LV size, wall motion, systolic function. EF 60-65%. No significant valvular abnormalities. Telemetry: Sinus rhythm. No arrhythmia. Medications Administered Current Inpatient Medications Acetaminophen (Tylenol) 650 mg PO Q4H PRN PRN Reason: Moderate Pain Stop: 12/28/18 14:34 Enoxaparin Sodium (Lovenox) 40 mg SQ QAM SHARI Stop: 12/29/18 08:59 Last Admin: 11/29/18 08:20 Dose: Not Given Documented by: Ketorolac Tromethamine (Toradol) 30 mg IV Q6H PRN PRN Reason: Pain Stop: 12/03/18 16:33 Last Admin: 11/28/18 19:39 Dose: 30 mg Documented by: Ondansetron HCl (Zofran) 4 mg IV Q4H PRN PRN Reason: Nausea And Vomiting Stop: 12/28/18 14:34
--- NOTE | 2018-11-29 13:29 | Discharge Summary ---
Date of Service date of admission - November 28, 2018 date of discharge - November 29, 2018 Admission HPI Per Admitting Provider This is a 43 yo female without significant PMHx who presented to her PCPs office this morning for work up of headache which has been ongoing for about 2 weeks. She notes that about 2 weeks ago, developed severe post-coital headache/migraine which lasted a few days, and never completely subsided. She has never had a history of headaches like this before in the past. Patient notes that anytime that she became excited, stressed, angry that headaches seem to be worse. Patient tried llpb-fzx-[id number] medications including Aleve, aspirin, Tylenol without relief. Patient had a bathroom which was being refinished today however the vanity did not fit which stressed her out and became angry. Upon driving to work patient developed stabbing-like chest pains on the left side which radiated into her shoulder blades the left arm and up into her jaw. Patient admits to lightheadedness and dizziness during that time. No complaints of shortness of breath. Her headache was not present upon her PCP visit today. Pt also notes that her last period started 2d after having intercourse, however denies hx of migraines with menses in the past. Principal Diagnosis chest pain, ACS ruled out; headache - resolved Discharge Exam Constitutional well developed, well nourished and + obese; no acute distress and no altered mental status Eyes PERRL ENMT external ear and nose normal, oropharynx normal Respiratory normal respiratory effort, lungs clear to auscultation Cardiovascular Rate/Rhythm: regular rate and regular rhythm Heart Sounds: normal S1 and normal S2; no murmur Vessels: posterior tibial pulses present and dorsalis pedis pulses present; no JVD Extremities: no edema Chest (Breasts) Additional Comments: no reproducible chest wall pain Gastrointestinal (Abdomen) normal bowel sounds, soft, nontender, no hepatosplenomegaly Neurologic no focal motor deficits Psychiatric A+Ox3, euthymic affect Discharge Data Allergies Allergy/AdvReac Type Severity Reaction Status Date / Time No Known Allergies Allergy Unverified 11/28/18 13:11 Consultations 1. [facility] Cardiology - Eliud Powell / Elliot Jara MD 2. [facility] Neurology - Naren Guan MD Ordered Studies 1. CT head - normal, no acute findings. 2. echo - EF 65-70%; normal valve function; normal LV wall motion. 3. chest x-ray - normal, no acute findings. Hospital Course (1) Headache: The patient was seen by Dr Guan from [facility] Neurology. Low CSF pressure headache was suspected as the etiology. The headache had resolved about 2 days prior to admission. He did not feel it had been a status migraine. Neurological exam was normal. CT head was normal. He recommended an MRI brain with and without contrast; this was felt to be nonurgent and will be arranged for shortly after discharge. (2) Atypical chest pain: This was felt to be quite atypical for cardiac chest pain. Mbib-axz-yqsw she had nonspecific ST changes laterally on her EKG. These changes resolved prior to discharge. Echo was normal. Troponins were negative. Telemetry was normal. Her pain was not reproducible on examination. She was seen in consult by cardiology. Because of CAD risk factors she will be set up for a stress echocardiogram shortly after discharge. This will be coordinated through [facility]. She will take a baby aspirin 81mg daily until the stress test has been completed. (3) Tobacco abuse: Cessation encouraged. (4) Obesity (BMI 35.0-39.9 without comorbidity): BMI 36 Total Time Total Time Spent Total Time Spent (In Minutes): 30 Total Time Includes: Examination of the Patient, Discharge Planning, Medication Reconciliation and Communication With Other Providers (cardiology and neurology) Discharge Plan Discharge Items Patient Disposition: Home - Self-Care Reason For Visit: CHEST PAIN Discharge Diagnosis: 1. recent headache - resolved. CT head normal. 2. chest pain - resolved. Echocardiogram, blood work for the heart, and telemetry monitoring normal. Discharge Goals: Diagnostic testing and Therapeutic intervention Activity: As commented below Activity Comment: no strenuous activities until stress test has been completed Lifting: No more than 25 pounds Sexual Activity: Wait until after follow-up appointment Exercise/Sports: Wait until after follow-up appointment Driving/Machine Use: No limitations Non-emergency contact: Primary Care Provider and Employment Office Clerk Call non-emergency contact if: you have any medication questions, your symptoms worsen and your temperature is above 100.5 Follow-up/Referrals: Elliot Jara MD [Physician] - (Dr Jara's office will be contacting you with date/time of stress test) Seema Mendoza [Primary Care Provider] - (see Ms Mendoza within 1 week) Diet: Heart Healthy Addtl Provider Instructions: From Eliud Avila, hospitalist - You were seen and treated for headache of 10+ days duration as well as chest discomfort. Your CAT scan of the brain, troponins (blood work for the heart), echocardiogram (heart ultrasound), blood counts, electrolytes, and heart monitoring were normal. We did not find evidence of heart attack. You were seen by the perianesthesia manager and neurologist. The perianesthesia manager is recommending a stress test. The neurologist is recommending an MRI of the brain. Follow-up / recommendations - 1. you will be receiving information on the timing of your stress test; we hope to get this done within the next week. 2. MRI brain - we also hope to get this in the next week. 3. take a "baby" aspirin 81mg daily; this is a precautionary measure. If your stress test is normal the aspirin will be stopped at that time. 4. no strenuous activities until the stress test has been completed; this includes sexual intercourse, going to the gym, etc. Return to [facility] if -- * you have recurrent headaches * fevers over 100.5 degrees * you have chest pain * you have shortness of breath * any other concerns Prescriptions: New aspirin [Aspirin Childrens] 81 mg tablet,chewable 81 mg PO DAILY Qty: 14 RF: 0 Continued ibuprofen 200 mg Tablet 200 mg PO Q6H PRN (Reason: Pain) RF: 0 Stand-Alone Forms: [facility] Discharge Orders: Discharge Order (Routine); Ordered 11/29/18 Ordered By: Eliud Avila Admission Data Admit Date/Time: 11/28/18 14:34 Attending Provider: Eliud Avila Admit Provider: Kaitlynn Hancock Primary Care Provider: Seema Mendoza Other Providers: Naren Guan ; Eliud Powell ; Kaitlynn Hancock Service: Telemetry Other Interventions: Discharge Summary Assessment (RN) Last Done: 11/29/18 13:24 Pending Studies at Discharge: No DC Date/Time DO NOT enter until pt leaves facility: 11/29/18 14:11
== END 2018-11-29 14:11 | disposition home or self-care (01) ==
LOC: 2S 12:18 → ED 12:18 → SUATTDRO 14:34 → 2S 15:40

== ENCOUNTER 2022-04-01 21:49 | Observation (INO) ==
[2022-04-01 22:28] LABS: Hematocrit (blood only) 37.3 % (34.1-44.9); Hemoglobin 12.2 g/dl (12.0-16.0); Mean Corpuscular Hemoglobin 29.7 pg (25.0-34.0); Mean Corpuscular Hgb Conc 32.7 g/dL (32.0-36.0); Mean Corpuscular Volume 90.8 fL (80.0-100.0); Mean Platelet Volume 10.7 fL (9.4-12.3); Platelet Count 326 K/uL (130-400); RDW Coefficient of Variation 14.3 % (11.5-14.5); RDW Standard Deviation 47.4 fL (36.4-46.3); Red Blood Count 4.11 M/uL (3.93-5.22); White Blood Count 14.68 K/ul (4.8-10.8)
[2022-04-01 22:43] LABS: Basophils # (auto) 0.06 K/uL (0-0.2); Basophils % (auto) 0.4 %; Eosinophils # (auto) 0.32 K/uL (0-0.50); Eosinophils % (auto) 2.2 %; Immature Granulocytes # (auto) 0.06 K/uL (0.00-0.02); Immature Granulocytes % (auto) 0.4 %; Lymphocytes # (auto) 4.86 K/uL (1.2-3.4); Lymphocytes % (auto) 33.1 %; Monocytes # (auto) 0.93 K/uL (0.24-0.82); Monocytes % (auto) 6.3 %; Neutrophils # (auto) 8.45 K/uL (1.4-6.5); Neutrophils % (auto) 57.6 %
[2022-04-01 22:49] LABS: INR 0.9 (0.9-1.1); Partial Thromboplastin Ratio 0.9; Partial Thromboplastin Time 25.4 Seconds (21.0-31.0); Prothrombin Time 9.8 Seconds (9.0-12.0)
[2022-04-01 22:52] LABS: Troponin I High Sensitivity 3.1 pg/ml (0-14)
--- NOTE | 2022-04-01 23:07 | XRay Report ---
XR chest 1V portable CLINICAL HISTORY: Atypical chest pain. COMPARISON STUDY: Chest radiograph November 28, 2018. FINDINGS: Lung volumes are normal. Lungs are clear. There is no pneumothorax or pleural effusion. Car diac size is normal. Mediastinal contours are normal. There is no evidence for pulmonary edema. IMPRESSION: No acute cardiopulmonary findings. ACT 112: Negative or not required by law. Electronically signed by: Sean Zarate M.D. 04/01/2022 11:05 PM
[2022-04-01 23:20] LABS: Alanine Aminotransferase 13 U/L (7-52); Albumin Globulin Ratio 1.4 (0.9-2); Albumin Level 4.2 gm/dl (3.4-5.0); Alkaline Phosphatase 87 U/L (34-104); Anion Gap 10 (3-11); BUN Creatinine Ratio 17.8 (10-20); Bilirubin,Total 0.3 mg/dl (0.2-1.0); Blood Urea Nitrogen 13 mg/dl (6-23); Calcium 9.3 mg/dl (8.5-10.1); Carbon Dioxide 21 mmol/L (21-32); Chloride 105 mmol/L (98-107); Creatinine Clr Calc Pharmacy 119.4 ml/min; Est GFR (African American) 115.3 ml/min; Est GFR (Non-African American) 99.5 ml/min; Glucose 144 mg/dl (70-99(Fasting)); Sodium 136 mmol/L (136-145); Total Protein 7.2 gm/dl (6.0-8.3)
--- NOTE | 2022-04-02 00:06 | Emergency Department Note ---
Impression & Plan Chest pain ADMIT ED Provider Note HPI: The patient is a 46-year-old female who presents the emergency department with a chief complaint of chest pain. Patient states that earlier this evening at approximately 9 PM she developed some substernal chest discomfort when she was playing a card game. She states that the pain was relatively severe at the time and therefore she drove herself to the emergency department to be evaluated. Patient states shortly after she arrived here to the ED her pain did seem to improve. On my initial assessment the patient is resting comfortably in bed. ROS: -Cardio: Chest pain *10 point review systems was conducted and is otherwise negative unless stated above *Outpatient medications and allergy history reviewed PE: General: Alert, obese, no acute distress HEENT: Normocephalic, trachea midline Eyes: Extraocular eye movement is intact, no scleral erythema Pulmonary: Clear to auscultation bilaterally, no wheezing Cardio: Regular rate and rhythm GI: Abdomen is soft, nontender : No suprapubic tenderness MSK: No evidence of trauma or malformation of the extremities, no edema Skin: No evidence of rash Neuro: Alert, no focal deficits Psychiatric: Cooperative case monitor: - An order was placed for continuous cardiac monitoring - Patient was noted to be in sinus rhythm with a rate of 90 EKG: Rate: 131 Rhythm: Sinus tachycardia Intervals: Within normal limits ST changes: No ST elevation Time: 2155 Interventions provided in ED: -Aspirin Medical Decision Making: Patient presented to the ED with a chief complaint of chest pain. She does have a history of obesity, longstanding history of smoking, hypertension, history of carotid stenosis. On arrival EKG does not show any acute ischemic changes although the patient does arrive tachycardic. Troponin is negative x1. D-dimer was elevated therefore CT angiography of the chest was obtained that does not show any evidence of pulmonary embolism or dissection. Patient's lab work does show a moderate leukocytosis, denies any recent infectious signs or symptoms. Patient states that her symptom onset was acute tonight. Delta troponin was obtained and is also negative. CT angiography is concerning for coronary artery calcifications, this is in the setting of longstanding smoking in addition to findings on CT angiography of the neck several weeks ago that did show evidence of carotid artery disease as well. On my reassessment the patient appears comfortable but states she still does have some mild chest discomfort, she has not had a stress test for several years. Given concerning findings on CT imaging in addition to the fact that the patient is still having some mild pain, I did discuss admission with the patient she is in agreement. She is high risk for coronary artery disease and has calcifications on her CT, I feel that she would benefit from stress testing and admission. Case was discussed with the on-call hospitalist, Dr. Montelongo, and the patient was admitted in stable condition for further care. Patient was given aspirin prior to admission. Diagnosis: 1. Chest pain, acute 2. Coronary artery calcifications on CT 3. Obesity 4. History of tobacco abuse Disposition: Admission Kirill Adkins DO Emergency Medicine Past Med/Surg History Medical History History of kidney stones Hx of chest pain "RELATED TO ANXIETY" Obesity Smoker Surgical History Family history of reaction to anesthesia SISTER HAD A TOOTH EXTRACTION-RESULTING IN STROKE (WAS TOLD IT WAS RELATED TO ANESTHESIA) Fusion of spine LUMBAR History of cataract surgery RT/LEFT History of section X 2 History of cystoscopy WITH STENT FOR KIDNEY STONE History of lithotripsy History of tooth extraction [place] teeth removed Family History Grandmother (Maternal) Family history of diabetes mellitus Social History Smoking Status: Never smoker Tobacco Type: Cigarettes Cigarettes Per Day: 6 CIG DAILY; Second Hand Exposure: No; Hx Alcohol Use: No Hx Substance Use: No Preferred Language: Yakut Communication Ability: Effective Converter Supervisor Required: No Beliefs That Will Affect Care: None marital status: Current Living Situation: Family current occupational status: employed Feels Safe at Home: Yes Assistive Devices: Denture - Upper Allergies Allergies Allergy/AdvReac Type Severity Reaction Status Date / Time oxybutynin Allergy Intermediate Hives Verified 03/16/22 00:30 Home Meds Home Medications Medication Instructions Recorded Confirmed No Known Home Medications 03/16/22 03/16/22 Results & Data (ED) Vital Signs Vital Signs - 24 hr 04/01/22 21:53 04/02/22 00:08 04/02/22 02:00 Temperature 36.9 C Temperature Source Temporal Artery Scan Pulse Rate 130 H Pulse Rate [Finger] 90 82 Pulse Rhythm Regular Pulse Strength Normal Respiratory Rate 22 20 18 Respiratory Effort / Characteristics Non-Labored Spontaneous Non-Labored Spontaneous Respiratory Depth Normal Normal Respiratory Pattern Regular Regular Blood Pressure [Right Arm] 127/80 110/63 Blood Pressure Mean [Right Arm] 95 78 Blood Pressure Position Sitting Pulse Oximetry 100 99 98 Oxygen Delivery Method Room Air Room Air Room Air Sepsis Recent Fever Within 48 Hours No Sepsis New/Unexplained Change in Mental Status N/A Sepsis Action Taken by Nursing No Action Required Laboratory Data Result diagrams: 04/01/22 22:05 04/02/22 00:14 Lab Results 04/01/22 04/01/22 04/01/22 Range/Units 22:05 22:05 22:05 WBC 14.68 H (4.8-10.8) K/ul RBC 4.11 (3.93-5.22) M/uL Hgb 12.2 (12.0-16.0) g/dl Hct 37.3 (34.1-44.9) % MCV 90.8 (80.0-100.0) fL MCH 29.7 (25.0-34.0) pg MCHC 32.7 (32.0-36.0) g/dL RDW Std Deviation 47.4 H (36.4-46.3) fL RDW Coeff of Vinay 14.3 (11.5-14.5) % Plt Count 326 (130-400) K/uL MPV 10.7 (9.4-12.3) fL Immature Gran % (Auto) 0.4 % Neut % (Auto) 57.6 % Lymph % (Auto) 33.1 % Isabella % (Auto) 6.3 % Eos % (Auto) 2.2 % Baso % (Auto) 0.4 % Neut # (Auto) 8.45 H (1.4-6.5) K/uL Lymph # (Auto) 4.86 H (1.2-3.4) K/uL Isabella # (Auto) 0.93 H (0.24-0.82) K/uL Eos # (Auto) 0.32 (0-0.50) K/uL Baso # (Auto) 0.06 (0-0.2) K/uL Immature Gran # (Auto) 0.06 H (0.00-0.02) K/uL PT 9.8 (9.0-12.0) Seconds INR 0.9 (0.9-1.1) APTT 25.4 (21.0-31.0) Seconds PTT Ratio 0.9 D-Dimer (0-500) ug/L FEU Sodium 136 (136-145) mmol/L Potassium TNP Chloride 105 (98-107) mmol/L Carbon Dioxide 21 (21-32) mmol/L Anion Gap 10 (3-11) BUN 13 (6-23) mg/dl Creatinine 0.73 (0.6-1.2) mg/dl Est Cr Clr Drug Dosing 119.4 ml/min Est GFR ( Amer) 115.3 ml/min Est GFR (Non-Af Amer) 99.5 ml/min BUN/Creatinine Ratio 17.8 (10-20) Glucose 144 H (70-99(Fasting)) mg/dl Calcium 9.3 (8.5-10.1) mg/dl Total Bilirubin 0.3 (0.2-1.0) mg/dl AST TNP ALT 13 (7-52) U/L Alkaline Phosphatase 87 (34-104) U/L Troponin I High Sens 3.1 (0-14) pg/ml Total Protein 7.2 (6.0-8.3) gm/dl Albumin 4.2 (3.4-5.0) gm/dl Globulin 3.0 (2.5-4.0) gm/dl Albumin/Globulin Ratio 1.4 (0.9-2) 04/01/22 04/02/22 04/02/22 Range/Units 22:05 00:14 00:14 WBC (4.8-10.8) K/ul RBC (3.93-5.22) M/uL Hgb (12.0-16.0) g/dl Hct (34.1-44.9) % MCV (80.0-100.0) fL MCH (25.0-34.0) pg MCHC (32.0-36.0) g/dL RDW Std Deviation (36.4-46.3) fL RDW Coeff of Vinay (11.5-14.5) % Plt Count (130-400) K/uL MPV (9.4-12.3) fL Immature Gran % (Auto) % Neut % (Auto) % Lymph % (Auto) % Isabella % (Auto) % Eos % (Auto) % Baso % (Auto) % Neut # (Auto) (1.4-6.5) K/uL Lymph # (Auto) (1.2-3.4) K/uL [place] # (Auto) (0.24-0.82) K/uL Eos # (Auto) (0-0.50) K/uL Baso # (Auto) (0-0.2) K/uL Immature Gran # (Auto) (0.00-0.02) K/uL PT (9.0-12.0) Seconds INR (0.9-1.1) APTT (21.0-31.0) Seconds PTT Ratio D-Dimer 710 H* (0-500) ug/L FEU Sodium (136-145) mmol/L Potassium 3.7 Chloride (98-107) mmol/L Carbon Dioxide (21-32) mmol/L Anion Gap (3-11) BUN (6-23) mg/dl Creatinine (0.6-1.2) mg/dl Est Cr Clr Drug Dosing ml/min Est GFR ( Amer) ml/min Est GFR (Non-Af Amer) ml/min BUN/Creatinine Ratio (10-20) Glucose (70-99(Fasting)) mg/dl Calcium (8.5-10.1) mg/dl Total Bilirubin (0.2-1.0) mg/dl AST 11 L ALT (7-52) U/L Alkaline Phosphatase (34-104) U/L Troponin I High Sens 3.1 (0-14) pg/ml Total Protein (6.0-8.3) gm/dl Albumin (3.4-5.0) gm/dl Globulin (2.5-4.0) gm/dl Albumin/Globulin Ratio (0.9-2) Administered Medications Discontinued Medications Ioversol (Optiray 320 500ml) 120 ml IV ONCE ONE Stop: 04/02/22 01:45 Last Admin: 04/02/22 01:40 Dose: 120 ml Documented By: BALDO Imaging Data Radiologist's Impression: Chest X-Ray 04/01/22 21:56 XR chest 1V portable CLINICAL HISTORY: Atypical chest pain. COMPARISON STUDY: Chest radiograph November 28, 2018. FINDINGS: Lung volumes are normal. Lungs are clear. There is no pneumothorax or pleural effusion. Cardiac size is normal. Mediastinal contours are normal. There is no evidence for pulmonary edema. IMPRESSION: No acute cardiopulmonary findings. ACT 112: Negative or not required by law. Electronically signed by: Sean Zarate M.D. 04/01/2022 11:05 PM Discharge Plan Visit Data Chief Complaint: Chest Pain Stated Complaint: CHEST PAIN, SOB, CAROTID ACCULSION ED Provider: Kirill Adkins Discharge Problem: Chest pain Patient Disposition: Home - Self-Care Forms Stand Alone Forms: [facility], Virtual Emergency Department, Important Visit Information Prescriptions Prescriptions: No Action No Known Home Medications Referrals Referrals: Seema Mendoza CRNP [Outside Practitioners] -
[2022-04-02 00:50] LABS: Potassium 3.7 mmol/L (3.5-5.1)
[2022-04-02 01:01] LABS: D Dimer 710 ug/L FEU (0-500)
[2022-04-02] MEDS ORDERED: OPTIRAY 320 500ml IV ONE (01:44)
[2022-04-02] MEDS ORDERED: ASPIRIN CHEW 324 MG PO STA (03:08)
--- NOTE | 2022-04-02 03:36 | History & Physical Report ---
Date of Service April 02, 2022 Assessment & Plan (1) Chest pain: Plan: 46yo female presenting with chest pain. Risk factors include HTN, family history, carotid disease. Troponin x 2 is unremarkable. EKG with some nonspecific changes. -Telemetry monitoring -Trend troponin -Stress test -Check Lipid panel and HgbA1C (2) Hypertension: Plan: Newly diagnosed, recently started on Lisinopril -Continue Lisinopril 5mg po BID -Monitor History of Present Illness Chief Complaint: chest pain Primary Care Provider: Mo Hobbs DO Nazia Rodriguez is a 46yo female presenting with chest pain. She has history of tobacco use (quit July 2021), obesity (BMI 37.5), HTN, carotid stenosis and family history of premature vascular disease (father with NH at age 46, sister with CVA at age 47). Patient has been having intermittent chest discomfort for the last several weeks. She notices it mostly when she is stressed or worked up. This evening at 21:00 she was playing cards and had acute onset of severe substernal chest discomfort with associated dizziness and SOB. She walked up the stairs and her pain intensified. Patient reports increased anxiety after being told about her carotid artery disease. She also has a lot of stress at home as well. No additional complaints. Patient denies fever, chills, cough, SOB, abdominal pain, nausea, vomiting, diarrhea or constipation. She has never had an NH. No history of cardiac catheterization. She had a stress test in 2018 and echo which were normal. ER Course: ASA Allergies Allergy/AdvReac Type Severity Reaction Status Date / Time oxybutynin Allergy Intermediate Hives Verified 03/16/22 00:30 Home Medications Medication Instructions Recorded Confirmed Type No Known Home Medications 03/16/22 03/16/22 History Past Med/Surg History Medical History History of kidney stones Hx of chest pain "RELATED TO ANXIETY" Hypertension Obesity Smoker Surgical History Family history of reaction to anesthesia SISTER HAD A TOOTH EXTRACTION-RESULTING IN STROKE (WAS TOLD IT WAS RELATED TO ANESTHESIA) Fusion of spine LUMBAR History of cataract surgery RT/LEFT History of section X 2 History of cystoscopy WITH STENT FOR KIDNEY STONE History of lithotripsy History of tooth extraction [place] teeth removed Family History (Updated 04/02/22 @ 04:06 by Lilo Montelongo DO) Grandmother (Maternal) Family history of diabetes mellitus Other Coronary heart disease Stroke Social History (Updated 04/02/22 @ 04:06 by Lilo Montelongo DO) Smoking Status: Former smoker Tobacco Type: Cigarettes Cigarettes Per Day: 6 CIG DAILY; Second Hand Exposure: No; Hx Alcohol Use: No Hx Substance Use: No Preferred Language: Uzbek Communication Ability: Effective Metal Expediter Required: No Beliefs That Will Affect Care: None marital status: Current Living Situation: Family current occupational status: employed Feels Safe at Home: Yes Assistive Devices: Denture - Upper Review of Systems Review of Systems: All systems reviewed & are unremarkable except as noted in HPI & below Physical Exam Physical Exam: General: patient resting comfortably, NAD, non-toxic in appearance, AA&O x 4, anxious in appearance Skin: warm, dry, intact, no rashes or lesions HEENT: NC/AT, PERRL, EOMI, anicteric sclera, conjunctiva without injection, external ear normal to inspection and nontender, nares patent, moist mucus membranes, dentition intact, no oropharyngeal lesions, neck supple, trachea midline, no LAD, no thyromegaly, no JVD Heart: +S1/S2, regular, no m/r/g Lungs: equal air entry bilaterally, no rales/rhonchi/wheezes Abd: +BS, soft, NT/ND, no masses/organomegaly/ascites Ext: warm, 2+ pulses in UE/LE bilaterally, no clubbing/cyanosis or edema Neuro: nonfocal, patient AA&O x 4, speech intact, no facial droop, moving all extremities on command with equal strength 5/5 Results & Data Results & Data ([facility]) Vital Signs (Past 12 Hours) Vital Signs Temp Pulse Pulse Resp BP BP Pulse Ox 04/02/22 03:00 90 15 112/70 98 04/02/22 02:00 82 18 110/63 98 04/02/22 00:08 90 20 127/80 99 04/01/22 21:53 36.9 C 130 H 22 100 O2 Del Method 04/02/22 03:00 04/02/22 02:00 Room Air 04/02/22 00:08 Room Air 04/01/22 21:53 Room Air Laboratory Results Laboratory Results WBC 14.68 K/ul (4.8-10.8) H 04/01/22 22:05 RBC 4.11 M/uL (3.93-5.22) 04/01/22 22:05 Hgb 12.2 g/dl (12.0-16.0) 04/01/22 22:05 Hct 37.3 % (34.1-44.9) 04/01/22 22:05 MCV 90.8 fL (80.0-100.0) 04/01/22 22:05 MCH 29.7 pg (25.0-34.0) 04/01/22 22:05 MCHC 32.7 g/dL (32.0-36.0) 04/01/22:05 RDW Std Deviation 47.4 fL (36.4-46.3) H 04/01/22 22:05 RDW Coeff of Vinay 14.3 % (11.5-14.5) 04/01/22 22:05 Plt Count 326 K/uL (130-400) 04/01/22 22:05 MPV 10.7 fL (9.4-12.3) 04/01/22 22:05 Immature Gran % (Auto) 0.4 % 04/01/22 22:05 Neut % (Auto) 57.6 % 04/01/22 22:05 Lymph % (Auto) 33.1 % 04/01/22 22:05 [place] % (Auto) 6.3 % 04/01/22 22:05 Eos % (Auto) 2.2 % 04/01/22 22:05 Baso % (Auto) 0.4 % 04/01/22 22: Neut # (Auto) 8.45 K/uL (1.4-6.5) H 04/01/22 22:05 Lymph # (Auto) 4.86 K/uL (1.2-3.4) H 04/01/22 22:05 [place] # (Auto) 0.93 K/uL (0.24-0.82) H 04/01/22 22:05 Eos # (Auto) 0.32 K/uL (0-0.50) 04/01/22 22:05 Baso # (Auto) 0.06 K/uL (0-0.2) 04/01/22 22:05 Immature Gran # (Auto) 0.06 K/uL (0.00-0.02) H 04/01/22 22:05 PT 9.8 Seconds (9.0-12.0) 04/01/22 22:05 INR 0.9 (0.9-1.1) 04/01/22 22:05 APTT 25.4 Seconds (21.0-31.0) 04/01/22 22:05 PTT Ratio 0.9 04/01/22 22:05 D-Dimer 710 ug/L FEU (0-500) H* 04/01/22 22:05 Sodium 136 mmol/L (136-145) 04/01/22 22:05 Potassium 3.7 mmol/L (3.5-5.1) 04/02/22 00:14 Chloride 105 mmol/L (98-107) 04/01/22 22:05 Carbon Dioxide 21 mmol/L (21-32) 04/01/22 22:05 Anion Gap 10 (3-11) 04/01/22 22:05 BUN 13 mg/dl (6-23) 04/01/22 22:05 Creatinine 0.73 mg/dl (0.6-1.2) 04/01/22 22:05 Est Cr Clr Drug Dosing 119.4 ml/min 04/01/22 22:05 Est GFR ( Amer) 115.3 ml/min 04/01/22 22:05 Est GFR (Non-Af Amer) 99.5 ml/min 04/01/22 22:05 BUN/Creatinine Ratio 17.8 (10-20) 04/01/22 22:05 Glucose 144 mg/dl (70-99(Fasting)) H 04/01/22 22:05 Calcium 9.3 mg/dl (8.5-10.1) 04/01/22 22:05 Total Bilirubin 0.3 mg/dl (0.2-1.0) 04/01/22 22:05 AST 11 U/L (13-39) L 04/02/22 00:14 ALT 13 U/L (7-52) 04/01/22 22:05 Alkaline Phosphatase 87 U/L (34-104) 04/01/22 22:05 Troponin I High Sens 3.1 pg/ml (0-14) 04/02/22 00:14 Total Protein 7.2 gm/dl (6.0-8.3) 04/01/22 22:05 Albumin 4.2 gm/dl (3.4-5.0) 04/01/22 22:05 Globulin 3.0 gm/dl (2.5-4.0) 04/01/22 22:05 Albumin/Globulin Ratio 1.4 (0.9-2) 04/01/22 22:05 SARS-CoV-2, RNA, NAAT NEGATIVE (NEGATIVE) 04/02/22 03:24 Impressions Chest X-Ray 04/01/22 21:56 XR chest 1V portable CLINICAL HISTORY: Atypical chest pain. COMPARISON STUDY: Chest radiograph November 28, 2018. FINDINGS: Lung volumes are normal. Lungs are clear. There is no pneumothorax or pleural effusion. Cardiac size is normal. Mediastinal contours are normal. There is no evidence for pulmonary edema. IMPRESSION: No acute cardiopulmonary findings. ACT 112: Negative or not required by law. Electronically signed by: Sean Zarate M.D. 04/01/2022 11:05 PM CTA - Per STAT-rad: No evidence of PE. Coronary artery calcification. Chronic compression fracture of T11 ECG Additional Comments: EKG wtih ST at 131, normal axis, MU=180, QRS=84, GXs=400, non-specific ST changes PG Care Time/CCT Total # of Minutes Spent Total Time Spent with Patient: Total time spent is greater than 50% in coordination of care (as documented) at patient's floor/unit and/or counseling patient: Coding Level of Care Code INT OBSERVATION CARE 50M LVL 2 Diagnoses Chest pain R07.9 Chest pain type: unspecified Hypertension I10 (1) Chest pain Chest pain type: unspecified Qualified Code(s): R07.9 - Chest pain, unspecified
[2022-04-02] MEDS ORDERED: ACETAMINOPHEN 325 MG TAB PO PRN (05:30)
[2022-04-02] MEDS ORDERED: ONDANSETRON INJ 2 MG/ML 2 ML VIAL IV PRN (05:30)
[2022-04-02] MEDS ORDERED: FLUARIX QUADRIVALENT 0.5 ML SYR IM ONE (05:44)
--- NOTE | 2022-04-02 08:01 | Hospitalist Progress Note ---
Date of Service April 02, 2022 Assessment & Plan (1) Chest pain: Plan: 46yo female presenting with chest pain. Risk factors include HTN, family history, carotid disease. Troponin x 2 is unremarkable. EKG with some nonspecific changes. -Telemetry monitoring -Trend troponin -Stress test -Check Lipid panel and HgbA1C (2) Hypertension: Plan: Newly diagnosed, recently started on Lisinopril but had stopped at the end of January -Continue Lisinopril 5mg po BID -Monitor (3) Carotid stenosis: Plan: Was seen in ER 03/16 for high BP, headache, dizziness At that time, CT head negative for acute CVA CTA Neck IMPRESSION: 1. There is greater than 75% focal stenosis of the proximal right internal carotid artery. 2. No hemodynamically significant stenosis is seen in the left carotid system. 3. There is high-grade focal stenosis of the origin of the right vertebral artery. CTA Head IMPRESSION: 1. No central vessel occlusion. No intracranial aneurysm. 2. Moderate atherosclerotic plaque within the intracranial vessels with multifocal stenosis, as detailed above. Given 324ASA in ER, would start ASA 81mg daily, continue at discharge given strong family history CVA (sister with CVA 47) (4) Tobacco abuse: Plan: prior use, quit earlier this year (5) Obesity (BMI 35.0-39.9 without comorbidity): Admission and Anticipated Discharge Date Admission Date: April 02, 2022 Subjective eval this morning, no CP present had ECHO done this morning, no stress test troponins negative she states she was seen by her PCP after Er visit and started on ASA 81mg and medication for cholesterol but not able to get on her [facility] portal to state what statin as Dr Hobbs checked her cholesterol at the office that day and they weren't significantly elevated but started medications given symptoms/findings. She does endorse she has had significant anxiety and her whole family has anxi ety and since her had car accident before daughter was born (now 4), anxiety has been worse and it's all on her to help manage everything at home. She felt like she was having crushing chest pain last evening and drove herself to the hospital as she thought she was having a heart attack She did endorse headache, lightheaded/dizziness last ER visit when found out she had carotid stenosis. CT chest with coronary artery calfications. She did resume her lisinopril for BP control, but states when asking about FMD, she did note Dr Hobbs said they wanted to check to see if she had any renal artery narrowing. Will order renal artery duplex for eval, may need to change around her BP meds. She does have f/u with Dr Maldonado on Monday. Willing to try dose of vistaril to see if helps with the anxiety, could continue at d/c Questions/concerns addressed at this time. Results & Data Results & Data ([facility]) Vital Signs (Past 12 Hours) Vital Signs Temp Pulse Pulse Resp BP BP Pulse Ox 04/02/22 07:27 82 04/02/22 05:30 66 04/02/22 05:35 36.6 C 82 18 129/84 100 04/02/22 05:23 04/02/22 04:33 77 20 125/64 98 04/02/22 04:01 90 14 115/67 98 04/02/22 03:00 90 15 112/70 98 04/02/22 02:00 82 18 110/63 98 04/02/22 00:08 90 20 127/80 99 04/01/22 21:53 36.9 C 130 H 22 100 O2 Del Method 04/02/22 07:27 04/02/22 05:30 04/02/22 05:35 Room Air 04/02/22 05:23 Room Air 04/02/22 04:33 Room Air 04/02/22 04:01 04/02/22 03:00 04/02/22 02:00 Room Air 04/02/22 00:08 Room Air 04/01/22 21:53 Room Air PG Care Time/CCT Total # of Minutes Spent Total Time Spent with Patient: Total time spent is greater than 50% in coordination of care (as documented) at patient's floor/unit and/or counseling patient: Coding Diagnoses Chest pain R07.9 Chest pain type: unspecified Hypertension I10 Carotid stenosis I65.29 Tobacco abuse Z72.0 Obesity (BMI 35.0-39.9 without comorbidity) E66.9 (1) Chest pain Chest pain type: unspecified Qualified Code(s): R07.9 - Chest pain, unspecified
[2022-04-02] MEDS ORDERED: ASPIRIN 81 MG ECTAB PO SCH (09:00)
[2022-04-02] MEDS ORDERED: lisinopril 5 MG TAB PO SCH (09:00)
[2022-04-02 09:15] LABS: Estimated Average Glucose 131 mg/dl; Hemoglobin A1C 6.2 % (4.5-5.6)
[2022-04-02] MEDS ORDERED: hydrOXYzine HCl 10 MG TAB PO ONE (10:24)
[2022-04-02 10:45] LABS: Chol HDL Ratio 3.1 (0-5); Magnesium 1.9 mg/dl (1.7-2.4)
--- NOTE | 2022-04-02 12:32 | CT Scan Report ---
CT angio chest PE protocol CLINICAL HISTORY: PE TECHNIQUE: Multidetector row helical CT of the chest was performed with angiographic protocol. Bashir l and sagittal reformations were obtained. Coronal and sagittal MIPS were obtained from the axial sheri a set and were submitted for review. Automated dose lowering techniques and/or adjustment according to patient size were utilized for this exam. CT DOSE: 537.91 mGy.cm Comparison: None available at the time of this dictation. FINDINGS: Lungs and pleura: Normal. Heart and pericardium: Heart size is normal. No pericardial effusion. Vessels: No evidence of pulmonary embolism. Mild atherosclerotic disease is seen. Mediastinum and tamera: Unremarkable. Chest wall and lower neck: Unremarkable. Abdomen: Unremarkable. Bones: Degenerative changes in the thoracic spine. IMPRESSION: No evidence of pulmonary embolism. ACT 112: Negative or not required by law. Electronically signed by: Neri Quick M.D. 04/02/2022 12:30 PM
--- NOTE | 2022-04-02 12:52 | Ultrasound Report ---
US duplex renal artery CLINICAL HISTORY: eval renal artery stenosis TECHNIQUE: Real-time grayscale and color and spectral Doppler ultrasound imaging of the kidneys was p erformed. Comparison: None available at the time of this dictation. FINDINGS: Right kidney measures 10.6 cm. Left kidney measures 10.8 cm. RIGHT: Normal echogenicity with preserved corticomedullary differentiation. Normal cortical thickness. No hy dronephrosis. No convincing evidence of calculus or mass. Spectral analysis: Intrarenal resistive indices range from 0.62 to 0.71. Waveforms are normal in appearance.. Renal jennifer ry patent with peak systolic velocity 154 cm/s proximally, 142 cm/s in the midportion, and 133 cm/s d istally. Renal vein patent. LEFT: Normal echogenicity with preserved corticomedullary differentiation. Normal cortical thickness. No hy dronephrosis. No convincing evidence of calculus or mass. Spectral analysis: Intrarenal resistive indices range from 0.59 to 0.68. Waveforms are normal in appearance. Renal arter y patent with peak systolic velocity 79.3 cm/s proximally, 96.0 cm/s in the midportion, and 117.5 cm/ s distally. Renal vein patent. Abdominal aorta: Patent. Peak systolic velocity 118 cm/s. Bladder: Normal. Bilateral ureteral jets present. Reference ranges: Normal main renal artery peak systolic velocity less than 180 cm/s. Ratio of renal artery PSV to aort ic PSV less than 3.5 equates to normal or less than 60% stenosis. Only one of the two criteria listed needs to be met for diagnosis. IMPRESSION: No evidence of renal artery stenosis. ACT 112: Negative or not required by law. Electronically signed by: Neri Quick M.D. 04/02/2022 12:50 PM
--- NOTE | 2022-04-02 13:00 | Electrocardiogram Report ---
Test Reason : Blood Pressure : / mmHG Vent. Rate : 131 BPM Atrial Rate : 131 BPM P-R Int : 140 ms QRS Dur : 084 ms QT Int : 298 ms P-R-T Axes : 028 000 -12 degrees QTc Int : 440 ms Sinus tachycardia mild Nonspecific ST abnormality Abnormal ECG When compared with ECG of 16-MAR-2022 03:52, Vent. rate has increased BY 51 BPM Anterior leads Confirmed by Enmanuel Teixeira ([id number]) on 04/02/2022 1:00:18 PM Referred By: REFERRED SELF Confirmed By:Enmanuel Teixeira
[2022-04-02] MEDS ORDERED: PROPRANOLOL HCL 20 MG TAB PO SCH (16:00)
--- NOTE | 2022-04-02 18:54 | Discharge Summary ---
Date of Service April 02, 2022 Admission HPI Per Admitting Provider Nazia Rodriguez is a 46yo female presenting with chest pain. She has history of tobacco use (quit July 2021), obesity (BMI 37.5), HTN, carotid stenosis and family history of premature vascular disease (father with IL at age 46, sister with CVA at age 47). Patient has been having intermittent chest discomfort for the last several weeks. She notices it mostly when she is stressed or worked up. This evening at 21:00 she was playing cards and had acute onset of severe substernal chest discomfort with associated dizziness and SOB. She walked up the stairs and her pain intensified. Patient reports increased anxiety after being told about her carotid artery disease. She also has a lot of stress at home as well. No additional complaints. Patient denies fever, chills, cough, SOB, abdominal pain, nausea, vomiting, diarrhea or constipation. She has never had an IL. No history of cardiac catheterization. She had a stress test in 2019 and echo which were normal. ER Course: ASA Admission Exam Per Admitting Provider General: patient resting comfortably, NAD, non-toxic in appearance, AA&O x 4, anxious in appearance Skin: warm, dry, intact, no rashes or lesions HEENT: NC/AT, PERRL, EOMI, anicteric sclera, conjunctiva without injection, external ear normal to inspection and nontender, nares patent, moist mucus membranes, dentition intact, no oropharyngeal lesions, neck supple, trachea midline, no LAD, no thyromegaly, no JVD Heart: +S1/S2, regular, no m/r/g Lungs: equal air entry bilaterally, no rales/rhonchi/wheezes Abd: +BS, soft, NT/ND, no masses/organomegaly/ascites Ext: warm, 2+ pulses in UE/LE bilaterally, no clubbing/cyanosis or edema Neuro: nonfocal, patient AA&O x 4, speech intact, no facial droop, moving all extremities on command with equal strength 5/5 Principal Diagnosis Chest Pain r/o ACS Discharge Exam General: WD/WN obese female sitting up in bed, NAD HEENT; head normocephalic, atraumatic, R carotid bruit, trachea midline no deviation Resp: CTAB, no w/c/r, on room air CV: RRR, no m/r/g, no pitting edema/calf tenderness GI: +BS, obese, NT : no finch MSK/Neuro: no focal deficit, no slurred speech, answering questions appropriately, strength equal Skin: warm, dry Psych: AOx3, cooperative, pleasant --> easily becomes anxious when talking about anything medical/risks/etc Discharge Data Allergies Allergy/AdvReac Type Severity Reaction Status Date / Time oxybutynin Allergy Intermediate Hives Verified 03/16/22 00:30 Ordered Studies Chest X-Ray 04/01/22 21:56 XR chest 1V portable CLINICAL HISTORY: Atypical chest pain. COMPARISON STUDY: Chest radiograph November 28, 2018. FINDINGS: Lung volumes are normal. Lungs are clear. There is no pneumothorax or pleural effusion. Cardiac size is normal. Mediastinal contours are normal. There is no evidence for pulmonary edema. IMPRESSION: No acute cardiopulmonary findings. ACT 112: Negative or not required by law. Electronically signed by: Sean Zarate M.D. 04/01/2022 11:05 PM Chest CTA 04/02/22 01:07 CT angio chest PE protocol CLINICAL HISTORY: PE TECHNIQUE: Multidetector row helical CT of the chest was performed with angiographic protocol. Coronal and sagittal reformations were obtained. Coronal and sagittal MIPS were obtained from the axial data set and were submitted for review. Automated dose lowering techniques and/or adjustment according to patient size were utilized for this exam. CT DOSE: 537.91 mGy.cm Comparison: None available at the time of this dictation. FINDINGS: Lungs and pleura: Normal. Heart and pericardium: Heart size is normal. No pericardial effusion. Vessels: No evidence of pulmonary embolism. Mild atherosclerotic disease is seen. Mediastinum and tamera: Unremarkable. Chest wall and lower neck: Unremarkable. Abdomen: Unremarkable. Bones: Degenerative changes in the thoracic spine. IMPRESSION: No evidence of pulmonary embolism. ACT 112: Negative or not required by law. Electronically signed by: Neri Quick M.D. 04/02/2022 12:30 PM Renal Artery Duplex 04/02/22 10:28 US duplex renal artery CLINICAL HISTORY: eval renal artery stenosis TECHNIQUE: Real-time grayscale and color and spectral Doppler ultrasound imaging of the kidneys was performed. Comparison: None available at the time of this dictation. FINDINGS: Right kidney measures 10.6 cm. Left kidney measures 10.8 cm. RIGHT: Normal echogenicity with preserved corticomedullary differentiation. Normal cortical thickness. No hydronephrosis. No convincing evidence of calculus or mass. Spectral analysis: Intrarenal resistive indices range from 0.62 to 0.71. Waveforms are normal in appearance.. Renal artery patent with peak systolic velocity 154 cm/s proximally, 142 cm/s in the midportion, and 133 cm/s distally. Renal vein patent. LEFT: Normal echogenicity with preserved corticomedullary differentiation. Normal cortical thickness. No hydronephrosis. No convincing evidence of calculus or mass. Spectral analysis: Intrarenal resistive indices range from 0.59 to 0.68. Waveforms are normal in appearance. Renal artery patent with peak systolic velocity 79.3 cm/s proximally, 96.0 cm/s in the midportion, and 117.5 cm/s distally. Renal vein patent. Abdominal aorta: Patent. Peak systolic velocity 118 cm/s. Bladder: Normal. Bilateral ureteral jets present. Reference ranges: Normal main renal artery peak systolic velocity less than 180 cm/s. Ratio of renal artery PSV to aortic PSV less than 3.5 equates to normal or less than 60% stenosis. Only one of the two criteria listed needs to be met for diagnosis. IMPRESSION: No evidence of renal artery stenosis. ACT 112: Negative or not required by law. Electronically signed by: Neri Quick M.D. 04/02/2022 12:50 PM 04/02 ECHO LV ventricle is normal in size There is normal left ventricular wall thickness Left ventricular systolic function is normal Ejection Fraction 60-65% The left ventricular wall motion is normal The right ventricle is normal in size and function Right ventricular systolic pressure normal Normal diastolic function Hospital Course (1) Chest pain: 46yo female presenting with chest pain. Risk factors include * HTN, * family history (dad w/ CABG at age 50, with 21 stents in heart. her sister had CVA after dental implant surgery at age 47 -- unclear/unknown if ever checked for clotting disorders/known cause for her sisters stroke), * carotid disease -- recent diagnosis with greater than 75% focal stenosis of the proximal right internal carotid artery, high grade focal stenosis at origin of right vertebral artery She does endorse she has had significant anxiety and her whole family has anxiety and since her had car accident before daughter was born (now 4), anxiety has been worse and it's all on her to help manage everything at home. NSR on monitor Trop negative x 3. EKG nonspecific ECHO negative for wma/reduced EF/valvular issues --> negative stress outpatient 2018 Lipid panel acceptable TRG85, Chol 104, LDL 53, HDL34-- was recently placed on atorvastatin 40mg daily by her PCP Dr Hobbs in follow up after d/c from ER in O ctober A1c 6.2-- will need counseling in f/u, consider adding metformin for risk reduction Large component of stress suspected given new dx carotid artery stenosis -- also of note, started ASA 81mg daily by PCP, continued inpatient --> has f/u appointment with Dr Heart on Monday this week reported Vistaril 10mg x 1 given, little too sedating. Decision to start low dose propranolol and can titrate outpatient Stress test in follow up however symptoms/clinical picture not consistent with ACS/unstable angina She did endorse having 20lb weight gain over past two years with [employer] and working from home. Also recently quit smoking earlier this year before her 46th birthday --> encouraged increasing activity/exercise/weight loss Also checked renal artery duplex to look for stenosis/possible fibromuscular dysplasia kind of picture with carotid disease--> negative for significant stenosis Remains on ASA 81mg , atorvastatin 40mg daily at discharge, continued from start 2 weeks ago (2) Hypertension: Newly diagnosed, recently started on Lisinopril , increased to BID by PCP Continued, but decreased to once daily as starting propranolol to check BP at home/continued monitoring and rec having her BP cuff taken to PCP office to ensure getting accurate readings at home as she notes she did she'd check it, get worked up if elevated, and then repeat further elevated giving her worsening anxiety and chest heaviness BP stable (3) Carotid stenosis: Was seen in ER 03/16 for high BP, headache, dizziness At that time, CT head negative for acute CVA CTA Neck IMPRESSION: 1. There is greater than 75% focal stenosis of the proximal right internal carotid artery. 2. No hemodynamically significant stenosis is seen in the left carotid system. 3. There is high-grade focal stenosis of the origin of the right vertebral artery. CTA Head IMPRESSION: 1. No central vessel occlusion. No intracranial aneurysm. 2. Moderate atherosclerotic plaque within the intracranial vessels with multifocal stenosis, as detailed above. Given 324ASA in ER, continued 81mg daily also atorvastatin 40mg daily started by PCP 2 weeks ago, added to med list, continued at d/c. Lipid panel acceptable but consider further increassing given family history if tolerating outpatient (4) Tobacco abuse: prior use, quit earlier this year continued cessation recommended (5) Obesity (BMI 35.0-39.9 without comorbidity): weight/loss/diet encouraged (6) Leukocytosis: during ER visit in February, felt to be marginilization WBC elevated on admit, afebrile checked procalcitonin, negative <0.05 differential with elevated lymphocytes -- appears back into 2020 --> sent peripheral smear , pending at d/c --> outpt f/u Total Time Total Time Spent Total Time Spent (In Minutes): 60 Discharge Plan Discharge Items Patient Disposition: Home - Self-Care Reason For Visit: CHEST PAIN Discharge Diagnosis: Chest Pain, Panic Attack Goals: You have been hospitalized for an acute medical problem. During your stay at [facility], we have made an effort to correct the problem that brought you to the hospital while keeping you as comfortable as possible. Medications were used to bring your condition under control and your discharge instructions will include directions for any medications you should take after leaving the hospital. Please make sure you see your Primary Care Provider as part of your follow up plan. Activity: Resume your previous activity Non-emergency contact: Primary Care Provider Call non-emergency contact if: you have any medication questions, your symptoms worsen and your pain is not controlled Follow-up/Referrals: Mo Hobbs DO [Primary Care Provider] - Graham Heart MD [Physician] - (monday ) Diet: Carb Consistent or DM2 and Heart Healthy Addtl Attending Provider Instructions: You have been hospitalized for chest pain. Troponin levels (enzymes to measure damage to cardiac tissue) were NEGATIVE. Your ultrasound of the heart was negative for any valvular heart disease, and no wall motion abnormalities. We did a CT of the chest which was NEGATIVE for pulmonary embolism. Your white count was elevated on admission, however I did check a procalcitonin which can indicate bacterial infection, and this was NEGATIVE. You can discuss with Dr Hobbs about arranging a stress test outpatient if you continue to have issues however as discussed, it is believed a large component of the current situation was related to anxiety/possible panic attack regarding finding out about the carotid stenosis, however thankfully cardiac has been ruled out and there is no evidence for blood clots. You should continue your aspirin 81mg daily, and atorvastatin 40mg daily as recently prescribed by Dr Hobbs. You should continue your lisinopril, but we have decreased this to once daily as we started something to help with anxiety called propranolol which can also decrease your blood pressure. We have started propranolol 20mg daily (split into 10mg twice daily as they are 12 hour lasting medications) and this can be increased to 60mg once daily long acting to help with anxiety symptoms. We tried low dose Vistaril but you stated this made you feel tired, and can continue discussions regarding anxiety medications vs prn medication for panic attack symptoms. You should continue to monitor your blood pressure at home and recommend you taking your blood pressure cuff with you to compare in the office in follow up. As discussed, it is important to wait a couple minutes to check your blood pressure from standing to sitting to get an accurate reading. Your A1c was borderline at 6.2 and you should follow up with Dr Hobbs for continued monitoring. You can also consider staring metformin for prevention. We did a renal artery ultrasound which was NEGATIVE for significant stenosis. We sent out a peripheral blood smear given you did have some elevated lymphocytes on admission on your blood count, and these appear to have been elevated in the past. This will need follow up with Dr Hobbs as well. Please follow up with your primary care provider in the next week to monitor your status after discharge. Please return to the ER with any fevers, worsening chest pain, shortness of breath, or for any other symptoms concerning for you. Pending Studies at Discharge: Yes Studies:: Peripheral Smear Stand-Alone Forms: My [facility] Medications and DC Order Prescriptions: New aspirin 81 mg Tablet,Delayed Release (Dr/Ec) 81 mg PO QAM Qty: 0 0RF propranolol 10 mg tablet 10 mg PO BID Qty: 60 0RF Continued atorvastatin 40 mg tablet 40 mg PO DAILY Changed lisinopril 5 mg tablet 5 mg PO QAM Qty: 30 0RF Discharge Orders: Discharge Order (Routine); Ordered 04/02/22 Ordered By: Patrciia Elizabeth/Other Patient Handouts: Prediabetes, 5 Steps for Eating Healthier Admission Data Admit Date/Time: 04/02/22 03:41 Attending Provider: Carmen Tyler Admit Provider: Lilo Montelongo Primary Care Provider: Mo Hobbs Other Interventions: Discharge Summary Assessment (RN) Last Done: 04/02/22 18:28 Supervising Physician Co-Signing Physician Notes PA Supervision Note: I did not personally see or examine the patient today, but I verified all reid points of JADE Pierre's assessment and plan with the following exceptions/additions: Pt left before I could see her prior to discharge. Agree with plan as [facility]. Coding Level of Care Code OBSERV/HOSP SAME DATE LVL 3 Diagnoses Chest pain R07.9 Chest pain type: unspecified Hypertension I10 Carotid stenosis I65.29 Tobacco abuse Z72.0 Obesity (BMI 35.0-39.9 without comorbidity) E66.9 Leukocytosis D72.829
[2022-04-02] MEDS ORDERED: ATORVASTATIN 40 MG TAB PO SCH (21:00)
== END 2022-04-02 19:11 | disposition home or self-care (01) ==
LOC: ED 21:49 → 2W 21:49 → SUATTDRO 04-02 03:41 → 2W 04-02 05:23

== ENCOUNTER 2022-05-10 05:38 | Inpatient (IN) ==
--- NOTE | 2022-05-05 12:59 | Anesthesiology Consultation ---
Date of Service May 05, 2022 Assessment & Plan (1) Encounter for pre-operative examination: - COVID screening: Per assessment on 05/05: No known COVID-19 positive contacts or current COVID-19 related symptoms. Travel screen negative. Patient vaccinated. At surgeon discretion if preop Covid testing being done. - Check test AM DOS - Tachycardia: ST at 131bpm on 04/02/22 EKG. EKG performed during [facility] admission- vitals monitored closely during admission- HRs 60s-90s. Echo performed 04/02/22- unremarkable. Will update EKG AM DOS. - [facility] admission (04/01-04/02/22): "Patient has been having intermittent chest discomfort for the last several weeks.. NSR on monitor.. Trop negative x 3. EKG nonspecific.. ECHO negative for wma/reduced EF/valvular issues --> negative stress outpatient 2019.. You can discuss with Dr Hobbs about arranging a stress test outpatient if you continue to have issues however as discussed, it is believed a large component of the current situation was related to anxiety/possible panic attack regarding finding out about the carotid stenosis, however thankfully cardiac has been ruled out and there is no evidence for blood clots." No physical limitations and no SOB with stairs per PAT RN phone interview 05/05/22. Case reviewed with Dr. Hoskins- feels okay to proceed with given surgery as scheduled without further cardiac evaluation and/or testing prior to surgery. Chart Review Chart Review: Acceptable Risk for Surgery (pending evaluation AM DOS) and Patient NOT seen in Pre Admission Testing History Surgery Operation Date: 05/10/22 10:20 Proposed Procedures p Right Internal Carotid Endarterectomy - Graham Heart MD Height/Weight Height: 5 ft 6 in Weight: 105.233 kg Allergies Allergy/AdvReac Type Severity Reaction Status Date / Time oxybutynin Allergy Intermediate Hives Verified 05/05/22 10:17 Medications Home Medications Medication Instructions Recorded Confirmed Last Taken aspirin 81 mg tablet,delayed 81 mg PO QAM #0 tabs 04/02/22 05/05/22 Unknown release atorvastatin 40 mg tablet 40 mg PO QPM 04/02/22 05/05/22 04/01/22 40 lisinopril 5 mg tablet 5 mg PO QAM #30 tabs 04/02/22 05/05/22 04/01/22 propranolol 10 mg tablet 10 mg PO BID #60 tabs 04/02/22 05/05/22 Unknown Past Medical History Medical History Carotid stenosis History of kidney stones Hypertension Obesity Past Family History Family History Grandmother (Maternal) Family history of diabetes mellitus Other Coronary heart disease Stroke Past Surgical History Surgical History Family history of reaction to anesthesia Sister- complications with tooth extraction resulting in stroke (told it was "related to anesthesia" per pt) Fusion of spine LUMBAR History of cataract surgery RT/LEFT History of section x2 History of cystoscopy WITH STENT FOR KIDNEY STONE History of lithotripsy History of tooth extraction Hx of carpal tunnel repair RIGHT [place] teeth removed Social History Smoking Status: Former smoker tobacco type: cigarettes Smoking cigarettes per day: 6 CIG DAILY Do You Dip or Chew Tobacco: No Smoking End Date: quit 2021 Hx Alcohol Use: No alcohol intake frequency: a few times a month Hx Substance Use: No substance use type: does not use Lab Results Anesthesia Preop Results Results Anesthesia Widget: WBC 14.68 K/ul (4.8-10.8) H 04/01/22 Hgb 12.2 g/dl (12.0-16.0) 04/01/22 Hct 37.3 % (34.1-44.9) 04/01/22 Plt 326 K/uL (130-400) 04/01/22 Na 136 mmol/L (136-145) 04/01/22 K 3.7 mmol/L (3.5-5.1) 04/02/22 Cl 105 mmol/L (98-107) 04/01/22 CO2 21 mmol/L (21-32) 04/01/22 BUN 13 mg/dl (6-23) 04/01/22 Creat 0.73 mg/dl (0.6-1.2) 04/01/22 Glucose Level 144 mg/dl (70-99(Fasting)) H 04/01/22 PT 9.8 Seconds (9.0-12.0) 04/01/22 PTT 25.4 Seconds (21.0-31.0) 04/01/22 INR 0.9 (0.9-1.1) 04/01/22 TSH 2.512 uIu/ml (0.300-4.500) 03/15/22 HA1c 6.2 % (4.5-5.6) H 04/02/22 Urine Color Yellow 03/15/22 Urine Appearance Clear (Clear) 03/15/22 Urine pH 6.0 (4.5-7.5) 03/15/22 Urine Specific [place] 1.019 (1.000-1.030) 03/15/22 Urine Protein Negative (Negative) 03/15/22 Urine Glucose (UA) Negative (Negative) 03/15/22 Urine Ketones Negative (Negative) 03/15/22 Urine Blood Negative (Negative) 03/15/22 Urine Nitrite Negative (Negative) 03/15/22 Urine Bilirubin Negative (Negative) 03/15/22 Urine Urobilinogen Negative (Negative) 03/15/22 Urine Leukocyte Esterase Negative (Negative) 03/15/22 SARS-CoV-2, RNA, NAAT NEGATIVE (NEGATIVE) 04/02/22 Testing Electrocardiogram Date: 04/01/22 ST at 131bpm. Mild NS STA. EKG performed during [facility] admission- vitals monitored closely during admission- HRs 60s-90s. Echo performed 04/02/22* Echocardiogram Date: 04/02/22 EF 60-65%. No RWMA. No significant valvular disease. Stress Test Date: 12/20/18 Type: exercise Negative exercise stress echo/ecg for ischemia at 103% MPHR. Good exercise tolerance. 10.1 METS. Rest EF 60-65%. Other Testing CTA Chest (04/02/22) Chronic compression fracture of T11 is noted. No evidence of pulmonary embolism. Neck CTA (03/16/22) There is greater than 75% focal stenosis of the proximal right internal carotid artery. No hemodynamically significant stenosis is seen in the left carotid system. There is high-grade focal stenosis of the origin of the right vertebral artery. Head CTA (03/16/22) No central vessel occlusion. No intracranial aneurysm. Moderate atherosclerotic plaque within the intracranial vessels with multifocal stenosis, as detailed above.
--- NOTE | 2022-05-09 16:26 | History & Physical Report ---
Date of Service May 09, 2022 Assessment & Plan (1) Stenosis of right internal carotid artery: Plan: Patient is admitted for a right carotid endarterectomy. I have discussed the risks options and benefits of the procedure with the patient. The patient understands the risks options and benefits and agrees to the procedure. History of Present Illness Chief Complaint: Right carotid stenosis Primary Care Provider: Mo Hobbs DO This is a 46-year-old female with past medical history of hypertension, h yperlipidemia and anxiety. The patient had previously presented with dizziness and "not feeling right" was found to have hypertension with reports of systolics above 200s. She was started on lisinopril with improvement of her blood pressures and these episodes of dizziness resolved. She did present to [facility] on 04/01 with concerns of having a heart attack as she was having significant chest pain. She underwent a thorough cardiac evaluation and was told that her troponins were negative, her echo was unremarkable, she did not need a stress test and she was started on propranolol to help with both blood pressure as well as anxiety. Patient reports that since this episode a few days ago she has had no further episodes of chest pain. She reports that when she was evaluated for hypertension she underwent CT a of her head and neck which demonstrated a greater than 75% stenosis of the right ICA just distal to the carotid bulb. She denies any previous TIAs or strokes, she denies amaurosis fugax, difficulty swallowing, dysarthria, or any hemiparesis. She presents with a desire to have her neck fixed as she believes this is causing her quite a bit of stress in her life. Allergies Allergy/AdvReac Type Severity Reaction Status Date / Time oxybutynin Allergy Intermediate Hives Verified 05/05/22 10:17 Home Medications Medication Instructions Recorded Confirmed Type aspirin 81 mg tablet,delayed 81 mg PO QAM #0 tabs 04/02/22 05/05/22 Rx release atorvastatin 40 mg tablet 40 mg PO QPM 04/02/22 05/05/22 History lisinopril 5 mg tablet 5 mg PO QAM #30 tabs 04/02/22 05/05/22 Rx propranolol 10 mg tablet 10 mg PO BID #60 tabs 04/02/22 05/05/22 Rx Past Med/Surg History Medical History Carotid stenosis History of kidney stones Hypertension Obesity Surgical History Family history of reaction to anesthesia Sister- complications with tooth extraction resulting in stroke (told it was "related to anesthesia" per pt) Fusion of spine LUMBAR History of cataract surgery RT/LEFT History of section x2 History of cystoscopy WITH STENT FOR KIDNEY STONE History of lithotripsy History of tooth extraction Hx of carpal tunnel repair RIGHT [place] teeth removed Family History Grandmother (Maternal) Family history of diabetes mellitus Other Coronary heart disease Stroke Social History Smoking Status: Former smoker Tobacco Type: Cigarettes Cigarettes Per Day: 6 CIG DAILY; Second Hand Exposure: No; Hx Alcohol Use: No Hx Substance Use: No Preferred Language: Syriac Communication Ability: Effective Team Driver Required: No Beliefs That Will Affect Care: None marital status: Current Living Situation: Family current occupational status: employed Feels Safe at Home: Yes Assistive Devices: Denture - Upper Review of Systems All systems reviewed & are unremarkable except as noted in HPI & below Physical Exam Physical Exam: General: No acute distress, Appears stated age, sitting up in a chair HEENT: Normocephalic, mucous membranes moist Neck: Supple, trachea midline CV: Regular rate and rhythm with S1/S2 noted, no murmurs Pulses: palpable bilateral radial pulses and DP pulses Pulm: Clear to auscultation bilaterally, no wheezes Abd: Soft, obese, nontender, nondistended, Extremities: Warm, well-perfused, no edema Neuro: Moving all extremities, CN II-XII grossly intact, alert and appropriate Skin: No rashes or lesions Constitutional: well developed
[2022-05-10] MEDS ORDERED: LR 15ML/HR IV SCH (06:00)
[2022-05-10] MEDS ORDERED: LACTATED RINGER'S 1,000 ML IV SCH ×2 (06:00→09:30)
[2022-05-10] MEDS ORDERED: ceFAZolin 2000MG 2,000 MG/15 ML SYR IV SCH (06:00)
[2022-05-10] MEDS ORDERED: GLYCOPYRROLATE 0.2 MG/ML VIAL ONE (07:00)
[2022-05-10] MEDS ORDERED: NEOSTIGMINE METHYLSULFATE 1 MG/ML 10ML VIAL ONE (07:00)
[2022-05-10] MEDS ORDERED: DEXAMETHASONE SOD INJ 4 MG/ML VIAL ONE (07:00)
[2022-05-10] MEDS ORDERED: fentaNYL citrate 100 MCG/2 ML VIAL ONE ×2 (07:00→09:12)
[2022-05-10] MEDS ORDERED: MIDAZOLAM HCL 1 MG/ML 2ML VIAL ONE ×2 (07:00→07:06)
[2022-05-10] MEDS ORDERED: ONDANSETRON INJ 2 MG/ML 2 ML VIAL ONE (07:00)
[2022-05-10] MEDS ORDERED: PROPOFOL IV EMULSION 10 MG/ML 20 ML VIAL IV ONE (07:00)
--- NOTE | 2022-05-10 07:06 | History & Physical Bridge Note ---
Date of Service May 10, 2022 History & Physical Bridge Note I have examined the patient, reviewed the History & Physical and in the interval since the performance of the History & Physical I have noted the following changes of clinical significance: no changes noted
[2022-05-10] MEDS ORDERED: SUGAMMADEX SODIUM 200 MG/2 ML VIAL IV ONE (07:11)
[2022-05-10] MEDS ORDERED: LIDOCAINE 1% LOCAL 20 ML VIAL ONE (07:13)
[2022-05-10] MEDS ORDERED: HEPARIN (PORCINE) 1000 UNIT/ML 10 ML (CATH LAB USE ONLY) ONE (07:13)
[2022-05-10] MEDS ORDERED: BUPIVACAINE 0.5 % 5 MG/1 ML MPF 30ML VIAL ONE (07:13)
[2022-05-10] MEDS ORDERED: EPINEPHrine INJ 1 MG/ML AMP ONE (07:13)
[2022-05-10] MEDS ORDERED: ceFAZolin 330 MG/ML 1 GM VIAL ONE (07:13)
[2022-05-10] MEDS ORDERED: GELATIN SPONGE SZ 100 ONE (07:13)
[2022-05-10] MEDS ORDERED: THROMBIN FOR SOLN 20000 UNIT KIT ONE (07:14)
[2022-05-10] MEDS ORDERED: ATROPINE SULFATE 0.1 MG/ML 10ML SYR IV PRN (08:17)
[2022-05-10] MEDS ORDERED: HYDROmorphone INJ 2 MG/ML SYR/VIAL IV PRN (08:17)
[2022-05-10] MEDS ORDERED: fentaNYL citrate 100 MCG/2 ML VIAL IV PRN (08:17)
[2022-05-10] MEDS ORDERED: ePHEDrine sulfate 50 MG/ML AMP IV PRN (08:17)
[2022-05-10] MEDS ORDERED: ONDANSETRON INJ 2 MG/ML 2 ML VIAL IV PRN (08:17)
--- NOTE | 2022-05-10 08:23 | Anesthesia Procedure Note ---
Anesthesia Procedure Note Arterial Line Note Patient medical history, medications, allergies and vitals reviewed. Date of procedure: 05/10/22 Consent: Risk / Benefits Reviewed With: PT / POA / Parent / Guardian, Accepts Plan, Informed Consent Obtained and All Questions Answered Monitors attached: Blood Pressure, CO2, EKG and Pulse Oximetry Oxygen delivery method: ETT Time out completed: Yes Premedication: General anesthesia Laterality: Right Location: Radial Hand hygeine: Soap and water and Alcohol based hand rub Equipment/Supplies: Cap, Mask and Sterile gloves Skin prep: Chloraprep Ultrasound used: Yes US equipment and supplies: Sterile Gel Drake test: Postitive Attempts: 2 Procedure Summary: 20 gauge angiocath advanced until return of bright red blood. Catheter threaded using seldinger technique with return of pulsatile, bright red blood. Catheter secured with tape and covered with occlusive dressing. Waveform consistent with correct arterial placement. After placement, normal perfusion was observed distal to the site of catheter placement. Post-Procedure: Pt hemodynamically stable, Pt tolerates well and No complication Anesthesia Charges Arterial Line A Line Charges: 09203 Insert Art line Samp/Mon/Garcia
[2022-05-10] MEDS ORDERED: ROCURONIUM BROMIDE 10 MG/ML 5 ML VIAL IV ONE ×8 (09:04)
[2022-05-10] MEDS ORDERED: PROTAMINE SULFATE 10 MG/ML 5 ML VIAL IV ONE ×2 (09:04)
[2022-05-10] MEDS ORDERED: HEPARIN SOD (PORCINE) 1000 UNIT/ML ONE (09:11)
[2022-05-10] MEDS ORDERED: PHENYLEPHRINE HCL 10 MG/ML VIAL ONE (09:11)
--- NOTE | 2022-05-10 09:31 | Operative Report ---
Post Operative Report Pre & Post Diagnosis Operation Date: 05/10/22 07:30 Pre-Op Diagnosis: Stenosis of right internal carotid artery Post-Op Diagnosis: Stenosis of right internal carotid artery I identified the patient and participated in the time-out.: Yes Procedure Operation Date: 05/10/22 07:30 Actual Procedures p Right Carotid Endarterectomy with Bovine Patch(Right) - Graham Heart MD Surgeon Graham Heart MD Development Consultant None Estimated Blood Loss 100 Findings Consistent with Post-Op Diagnosis Specimens Right carotid plaque Anesthesia Type General Complications none Disposition Accompanied Patient To Recovery: No Disposition: Recovery Room Indications This a 46-year-old female was found to have a severe stenosis of her right internal carotid artery. Endarterectomy versus TCAR was discussed with the patient. She elected to go ahead with the endarterectomy. I have discussed the risks options and benefits of the procedure with the patient. The patient understands the risks options and benefits and agrees to the procedure. Description of Procedure The patient was taken to the operating room and placed in supine position. After general anesthesia was accomplished the right side of the neck was prepped and draped in a sterile manner. The patient was identified and a timeout performed. A longitudinal neck incision was then made coursing along the medial border of the sternocleidomastoid muscle. The incision was taken down through the platysmal layer. The facial vein was identified, ligated, and divided. The common carotid artery was then seen. It was dissected free down to the omohyoid muscle. The dissection was carried upward until the external carotid artery and superior thyroid artery was seen. The superior thyroid artery was slung with a 2-0 silk suture. The external carotid was slung with a red rubber vessel loop. Next the dissection was carried up along the internal carotid artery. This was carried upward to beyond the area of narrowing. The hypoglossal nerve was seen and preserved. The patient was heparinized. After adequate heparinization was accomplished, the internal, external, and common carotid arteries were clamped. A longitudinal arteriotomy was started on the common carotid artery and extended upward along the internal carotid artery to a point beyond the area of narrowing. There was calcified plaque of the internal carotid artery origin causing approximately 80-85 % narrowing. A Sundt shunt was then placed in the internal, followed by the common carotid artery and held in place with Zhang clamps. There was good back bleeding seen from the internal carotid artery. The endarterectomy was then started in the appropriate plane on the common carotid artery. This was carried upward and the external carotid was everted and endarterectomized. The endarterectomy was then carried up along the internal carotid artery till a nice feathering breakoff point was accomplished beyond the end of the plaque. The endarterectomy was then carried down further on the common carotid artery. At end of the arteriotomy, the plaque was then transected. Under loop magnification, all loose debris and flaps werer removed. There is no distal flap seen at the end of the endarterectomy site. The arteriotomy then closed using an bovine patch and a running 6-0 Prolene suture. This was done in the usual vascular fashion. Prior to completing the closure, the shunt was removed and the internal and common carotid arteries were reclamped. Backbleeding and forward bleeding was allowed to occur. The flow surface was irrigated with heparinized saline. The final few sutures were then placed and securely tied. Clamps were then removed off the external and common carotid arteries. The clamp was then removed the internal carotid artery. Good distal flow was seen. Adequate hemostasis was seen of the patch. The wound was inspected and adequate hemostasis was obtained. The wound was irrigated with antibiotic solution. It was then closed with a running 3-0 Vicryl suture for the platysmal layer and a 4-0 subcuticular Vicryl suture for the skin edges. Dermabond was used for dressing. The patient left the operation room in satisfactory condition and tolerated the procedure well. All needle and sponge counts were correct at the end of the procedure. Raquel Castro Pac assisted due to lack of resident availability and was necessary for prepping, draping, retraction, wound closure defects, subQ and skin closure and was necessary for the case. I attest to the content of the Intraoperative Record and any orders documented therein. Any exceptions are noted below.
[2022-05-10] MEDS: oxyCODONE/ACETAMINOPHEN 5mg/325mg TAB PO PRN ×3 (11:50→20:11)
--- NOTE | 2022-05-10 12:05 | Anesthesiology Progress Note ---
Date of Service May 10, 2022 Anesthesia Post Procedure Vital Signs Vital Signs: Temp Pulse Pulse Resp BP BP Pulse Ox 05/10/22 10:55 36.5 C 76 20 98/56 L 96 05/10/22 10:25 82 17 105/60 95 05/10/22 10:45 78 20 99/82 L 94 05/10/22 10:35 79 20 104/50 L 94 05/10/22 10:15 36.5 C 82 21 122/65 98 05/10/22 10:05 36.5 C 83 21 114/77 97 05/10/22 09:55 88 17 138/87 97 05/10/22 09:45 93 H 16 139/77 96 05/10/22 09:35 36.2 C L 95 H 12 153/83 H 95 05/10/22 05:59 36.8 C 88 20 122/79 123/72 98 O2 Del Method O2 Flow Rate 05/10/22 10:55 Room Air 05/10/22 10:25 Room Air 05/10/22 10:45 Room Air 05/10/22 10:35 Room Air 05/10/22 10:15 Room Air 2 05/10/22 10:05 Oxymask 2 05/10/22 09:55 Oxymask 3 05/10/22 09:45 Oxymask 4 05/10/22 09:35 Oxymask 5 05/10/22 05:59 Room Air Transfer of Care Handoff Completed per policy Notes Mental Status: alert / awake / arousable and participated in evaluation Patient Amnestic to Procedure: Yes Nausea / Vomiting: adequately controlled Pain: adequately controlled Airway Patency, RR, SpO2: stable & adequate BP & HR: stable & adequate Hydration State: stable & adequate Anesthetic Complications: no major complications apparent and Pt Satisfied with anesthetic care Notes: pt c/o left eye jagged blur in mid field of view. pt evaluated by dr madison and myself. her visual cortez were equal an dintact. peerla. pt c/o headache. pt to go to icu but felt to have a visual aura to her headache
--- NOTE | 2022-05-10 14:01 | Critical Care Consultation ---
Date of Consultation May 10, 2022 Assessment & Plan (1) Stenosis of right internal carotid artery: ICU Assessment and Plans Reason Critically Ill: 46yo Female with PMH significant for HTN, HLD, anxiety admitted to the ICU s/p right carotid endarterectomy with Dr. Heart. Neuro - [facility] ICU: NEGATIVE Sedation: none Analgesia: percocet Cardiac - HTN -continue lisinopril, propranolol -smoking discontinued this july, encourage smoking cessation Right Carotid ICA stenosis -s/p right carotid endarterectomy with Dr. Heart, vascular surgery following -continue aspirin 81mg -continue atorvastatin Respiratory - no acute concerns GI - heart healthy diet RENAL/LYTES - No significant electrolyte derangement. Replace lytes as needed. - No concerns at this time. ENDO - Prediabetes -A1c 6.2 -follow up with PCP HEME - Will continue to monitor H&H ID - No concerns for infection at this point. INTEGUMENTARY - -incision of right neck clean dry healing well LINES/IV ACCESS - PIVs intact. DVT PROPHYLAXIS - -given recent vascular surgery, chemoprophylaxis contraindicated at this time. Continue SCDs Thank you for allowing us to be part of this patient's care. Please refer to Dr. Gray's documentation for any further recommendations. (2) Obesity (BMI 35.0-39.9 without comorbidity): (3) Hypertension: History of Present Illness Reason for Consultation: s/p right carotid endarterectomy Requesting Physician: Dr. Gray Attending Physician: Graham Heart MD History of Present Illness 46yo Female PMH HTN, HLD, anxiety admitted to the ICU s/p right carotid endarterectomy with Dr. Heart. On a previous admission for chest pain on 04/01 she was found to have 75% stenosis of right ICA, was started on blood pressure medication propranolol chest pain resolved, had wanted an endarterectomy because her stenosis was causing her stress. At this time she is resting comfortably in bed, denies any headache dizziness SOB nausea vomitting chest pain abd pain weakness. Only loss of sensation is in her right ear. Patient complains of itching from the blue cleaning fluid. Patient understands she is recovering from surgery, does not have questions at this time. Allergies Allergy/AdvReac Type Severity Reaction Status Date / Time oxybutynin Allergy Intermediate Hives Verified 05/10/22 06:04 Home Medications Medication Instructions Recorded Confirmed Type aspirin 81 mg tablet,delayed 81 mg PO QAM #0 tabs 04/02/22 05/10/22 Rx release atorvastatin 40 mg tablet 40 mg PO QPM 04/02/22 05/10/22 History lisinopril 5 mg tablet 5 mg PO QAM #30 tabs 04/02/22 05/10/22 Rx propranolol 10 mg tablet 10 mg PO BID #60 tabs 04/02/22 05/10/22 Rx Patient History Medical History Carotid stenosis History of kidney stones Hypertension Obesity Surgical History Family history of reaction to anesthesia Sister- complications with tooth extraction resulting in stroke (told it was "related to anesthesia" per pt) Fusion of spine LUMBAR History of cataract surgery RT/LEFT History of section x2 History of cystoscopy WITH STENT FOR KIDNEY STONE History of lithotripsy History of tooth extraction Hx of carpal tunnel repair RIGHT [place] teeth removed Family History Grandmother (Maternal) Family history of diabetes mellitus Other Coronary heart disease Stroke Social History Smoking Status: Former smoker Tobacco Type: Cigarettes Cigarettes Per Day: 6 CIG DAILY; Smoking End Date: quit 2021; Second Hand Exposure: No; Do You Dip or Chew Tobacco: No; Tobacco Cessation Education Requested by Patient: No Hx Alcohol Use: No Hx Substance Use: No Preferred Language: Kiswahili Communication Ability: Effective Storm Sash Maker Required: No Beliefs That Will Affect Care: None marital status: Current Living Situation: Family current occupational status: employed Other Information That Helps Us Care for You: No Feels Safe at Home: Yes Safety Concerns: Feels Safe At This Time Assistive Devices: Denture - Upper Review of Systems Review of Systems: All systems reviewed & are unremarkable except as noted in HPI & below Physical Exam Constitutional: well developed, well nourished, + obese and comfortable Eyes: PERRL, conjunctivae normal, anicteric sclerae ENMT: external ear and nose normal, oropharynx normal Neck: healing incision noted on right neck, no bleeding or discharge noted, minimal bruising. Respiratory: normal respiratory effort, lungs clear to auscultation Cardiovascular: RRR, no murmur, no edema Chest (Breasts): Chest: normal inspection of chest Gastrointestinal (Abdomen): Inspection/Auscultation: abdomen normal to inspection Percussion/Palpation: abdomen soft; abdomen nontender Skin: no rashes, warm and dry Neurologic: PERRL, EOMI, accommodation nl, no face palsy, no dysarthria moves all extremities and awake Psychiatric: A+Ox3, euthymic affect Results & Data Results & Data ([facility]) Vital Signs (Past 12 Hours) Vital Signs Temp Pulse Pulse Pulse Resp BP BP 05/10/22 13:01 70 16 85/48 L 05/10/22 12:45 76 15 114/58 L 05/10/22 12:30 68 23 98/53 L 05/10/22 12:15 70 23 98/55 L 05/10/22 12:00 67 22 97/54 L 05/10/22 11:45 70 22 108/62 05/10/22 11:30 74 24 103/56 L 05/10/22 11:23 72 19 102/55 L 05/10/22 11:21 72 19 113/60 05/10/22 10:55 36.5 C 76 20 05/10/22 10:25 82 17 05/10/22 10:45 78 20 05/10/22 10:35 79 20 05/10/22 10:15 36.5 C 82 21 05/10/22 10:05 36.5 C 83 21 05/10/22 09:55 88 17 05/10/22 09:45 93 H 16 05/10/22 09:35 36.2 C L 95 H 12 05/10/22 05:59 36.8 C 88 20 122/79 BP Pulse Ox O2 Del Method O2 Flow Rate 05/10/22 13:01 94 Room Air 05/10/22 12:45 95 Room Air 05/10/22 12:30 96 Room Air 05/10/22 12:15 95 Room Air 05/10/22 12:00 90 Room Air 05/10/22 11:45 95 Room Air 05/10/22 11:30 96 Room Air 05/10/22 11:23 93 Room Air 05/10/22 11:21 93 Room Air 05/10/22 10:55 98/56 L 96 Room Air 05/10/22 10:25 105/60 95 Room Air 05/10/22 10:45 99/82 L 94 Room Air 05/10/22 10:35 104/50 L 94 Room Air 05/10/22 10:15 122/65 98 Room Air 2 05/10/22 10:05 114/77 97 Oxymask 2 05/10/22 09:55 138/87 97 Oxymask 3 05/10/22 09:45 139/77 96 Oxymask 4 05/10/22 09:35 153/83 H 95 Oxymask 5 05/10/22 05:59 123/72 98 Room Air Resident Activity Tracking Resident Involvement: Resident Care Provided Care Provided: Adult Hospital Medicine
[2022-05-10] MEDS: ceFAZolin 2000MG 2,000 MG/15 ML SYR IV SCH ×2 (15:36→23:58)
[2022-05-10] MEDS: ATORVASTATIN 40 MG TAB PO SCH (20:11)
[2022-05-10] MEDS: PROPRANOLOL HCL 10 MG TAB PO SCH (20:12)
[2022-05-10] MEDS ORDERED: CHLORASEPTIC 1.4% SOLN 180 ML BTL MT PRN (20:36)
--- NOTE | 2022-05-11 08:06 | Critical Care Progress Note ---
Date of Service May 11, 2022 Assessment & Plan (1) Stenosis of right internal carotid artery: Plan: ICU Assessment and Plans Reason Critically Ill: 46yo Female with PMH significant for HTN, HLD, anxiety admitted to the ICU s/p right carotid endarterectomy with Dr. Heart. Neuro - [facility] ICU: NEGATIVE Sedation: none Analgesia: percocet Cardiac - HTN -continue lisinopril, propranolol -smoking discontinued this july, encourage smoking cessation Right Carotid ICA stenosis -s/p right carotid endarterectomy with Dr. Heart, vascular surgery following -continue aspirin 81mg -continue atorvastatin Respiratory - no acute concerns GI - heart healthy diet RENAL/LYTES - No significant electrolyte derangement. Replace lytes as needed. - No concerns at this time. ENDO - Prediabetes -A1c 6.2 -follow up with PCP HEME - Will continue to monitor H&H ID - No concerns for infection at this point. INTEGUMENTARY - -incision of right neck clean dry healing well LINES/IV ACCESS - PIVs intact. DVT PROPHYLAXIS - -given recent vascular surgery, chemoprophylaxis contraindicated at this time. Continue SCDs Thank you for allowing us to be part of this patient's care. Please refer to Dr. Gray's documentation for any further recommendations. Patient stable for downgrade from ICU at this time. (2) Obesity (BMI 35.0-39.9 without comorbidity): (3) Hypertension: Admission and Anticipated Discharge Date Admission Date: May 10, 2022 Subjective Patient seen at bedside calm comfortable cooperative, states she still has numbness in her right ear that has spread to her right cheek. Has otherwise tolerated breakfast well and is currently sleepy. She denies headache SOB nausea vomitting weakness of extremities, has some pain at her neck incision site. Review of Systems Review of Systems: All systems reviewed & are unremarkable except as noted in HPI & below Physical Exam Constitutional: well developed, well nourished, + obese and comfortable Eyes: PERRL, conjunctivae normal, anicteric sclerae ENMT: external ear and nose normal, oropharynx normal Neck: healing incision noted on right neck, no bleeding or discharge noted, minimal bruising. Respiratory: normal respiratory effort, lungs clear to auscultation Cardiovascular: RRR, no murmur, no edema Chest (Breasts): Chest: normal inspection of chest Gastrointestinal (Abdomen): Inspection/Auscultation: abdomen normal to inspection Percussion/Palpation: abdomen soft; abdomen nontender Skin: no rashes, warm and dry Neurologic: PERRL, EOMI, accommodation nl, no face palsy, no dysarthria moves all extremities and awake Psychiatric: A+Ox3, euthymic affect Results & Data Results & Data ([facility]) Vital Signs (Past 12 Hours) Vital Signs Pulse Resp BP Pulse Ox 05/11/22 05:00 78 14 90 05/11/22 04:00 75 15 89 L 05/11/22 03:00 72 15 91 05/11/22 02:00 74 15 89 L 05/11/22 01:00 82 15 88 L 05/11/22 00:00 78 14 90 05/10/22 23:00 71 14 89 L 05/10/22 22:00 71 14 88 L 05/10/22 21:12 130/74 05/10/22 21:12 72 22 05/10/22 21:00 83 16 Resident Activity Tracking Resident Involvement: Resident Care Provided Care Provided: Adult Hospital Medicine
[2022-05-11] MEDS ORDERED: ACETAMINOPHEN 500 MG TAB PO STA (10:27)
[2022-05-11] MEDS: ASPIRIN 81 MG ECTAB PO SCH (11:01)
[2022-05-11] MEDS: lisinopril 5 MG TAB PO SCH ×2 (11:01→11:54)
[2022-05-11] MEDS: PROPRANOLOL HCL 10 MG TAB PO SCH ×3 (11:02→20:30)
--- NOTE | 2022-05-11 12:40 | Surgery Progress Note ---
Date of Service May 11, 2022 Assessment & Plan (1) Stenosis of right internal carotid artery: Plan: This patient is postop day 1 from a right carotid endarterectomy. She is doing well with no focal deficits. She does have a headache with an ocular component which resolved with Tylenol. We will transfer to the floor today and possible discharge tomorrow. Admission and Anticipated Discharge Date Admission Date: May 10, 2022 Subjective Patient is complaining of ocular headaches which occurred this morning. It was relieved with p.o. Tylenol. She does not complain of any other focal deficits. She denies any incisional pain. Physical Exam Constitutional: WD/WN, vitals as above Neck: trachea midline Respiratory: normal respiratory effort; no respiratory distress Cardiovascular: Rate/Rhythm: regular rate and regular rhythm Skin: + incision (Dry and clean) Neurologic: CN's II-XI intact bilaterally and moves all extremities Psychiatric: Orientation: alert and oriented x 3 Results & Data ([facility]) Vital Signs (Past 12 Hours) Vital Signs Pulse Resp BP Pulse Ox O2 Del Method 05/11/22 08:00 87 112/82 05/11/22 11:00 95 H 18 112/70 95 Room Air 05/11/22 10:01 84 17 123/63 96 Room Air 05/11/22 08:25 87 21 114/61 96 Room Air 05/11/22 08:00 Room Air 05/11/22 08:00 87 05/11/22 05:00 78 14 90 05/11/22 04:00 75 15 89 L 05/11/22 03:00 72 15 91 05/11/22 02:00 74 15 89 L 05/11/22 01:00 82 15 88 L
[2022-05-11] MEDS ORDERED: traMADol HCL 50 MG TABLET PO PRN (14:58)
[2022-05-11] MEDS: ACETAMINOPHEN 500 MG TAB PO PRN (20:25)
[2022-05-11] MEDS: ATORVASTATIN 40 MG TAB PO SCH (20:25)
[2022-05-11] MEDS ORDERED: lisinopril 5 MG TAB PO SCH (21:00)
[2022-05-12] MEDS: ACETAMINOPHEN 500 MG TAB PO PRN ×2 (01:47→07:16)
[2022-05-12] MEDS: PROPRANOLOL HCL 10 MG TAB PO SCH (09:42)
[2022-05-12] MEDS: ASPIRIN 81 MG ECTAB PO SCH (09:42)
--- NOTE | 2022-05-12 12:02 | Surgery Progress Note ---
Date of Service May 12, 2022 Assessment & Plan (1) Stenosis of right internal carotid artery: Plan: Patient is doing well after carotid enterectomy. We will discharge her today on extra strength Tylenol for her headaches. We will see her in the office in 2 weeks for follow-up. Admission and Anticipated Discharge Date Admission Date: May 10, 2022 Subjective Patient's only complaint is occasional headache which is usually resolved with Tylenol. She denies any focal neurodeficits. Physical Exam Constitutional: WD/WN, vitals as above well developed Respiratory: normal respiratory effort; no respiratory distress Cardiovascular: Rate/Rhythm: regular rate and regular rhythm Skin: + incision (Dry and clean with minimal swelling) Neurologic: CN's II-XI intact bilaterally and moves all extremities Psychiatric: Orientation: alert and oriented x 3 Results & Data ([facility]) Vital Signs (Past 12 Hours) Vital Signs Temp Pulse Resp BP Pulse Ox O2 Del Method 05/12/22 08:00 36.9 C 88 18 132/83 94 Room Air
--- NOTE | 2022-05-12 12:07 | Discharge Summary ---
Date of Service May 12, 2022 Admission HPI Per Admitting Provider This is a 46-year-old female with past medical history of hypertension, hyperlipidemia and anxiety. The patient had previously presented with dizziness and "not feeling right" was found to have hypertension with reports of systolics above 200s. She was started on lisinopril with improvement of her blood pressures and these episodes of dizziness resolved. She did present to [facility] on 04/01 with concerns of having a heart attack as she was having significant chest pain. She underwent a thorough cardiac evaluation and was told that her troponins were negative, her echo was unremarkable, she did not need a stress test and she was started on propranolol to help with both blood pressure as well as anxiety. Patient reports that since this episode a few days ago she has had no further episodes of chest pain. She reports that when she was evaluated for hypertension she underwent CT a of her head and neck which demonstrated a greater than 75% stenosis of the right ICA just distal to the carotid bulb. She denies any previous TIAs or strokes, she denies amaurosis fugax, difficulty swallowing, dysarthria, or any hemiparesis. She presents with a desire to have her neck fixed as she believes this is causing her quite a bit of stress in her life. Admission Exam Per Admitting Provider General: No acute distress, Appears stated age, sitting up in a chair HEENT: Normocephalic, mucous membranes moist Neck: Supple, trachea midline CV: Regular rate and rhythm with S1/S2 noted, no murmurs Pulses: palpable bilateral radial pulses and DP pulses Pulm: Clear to auscultation bilaterally, no wheezes Abd: Soft, obese, nontender, nondistended, Extremities: Warm, well-perfused, no edema Neuro: Moving all extremities, CN II-XII grossly intact, alert and appropriate Skin: No rashes or lesions Principal Diagnosis Right internal carotid artery stenosis, post right carotid endarterectomy Discharge Exam Constitutional WD/WN, vitals as above well developed Neck trachea midline Respiratory normal respiratory effort; no respiratory distress Cardiovascular Rate/Rhythm: regular rate and regular rhythm Skin + incision (Dry and clean with minimal swelling) Neurologic CN's II-XI intact bilaterally and moves all extremities Psychiatric Orientation: alert and oriented x 3 Discharge Data Allergies Allergy/AdvReac Type Severity Reaction Status Date / Time oxybutynin Allergy Intermediate Hives Verified 05/10/22 06:04 Consultations 05/10/22 09:23 Consult [employer] Supervisor Routine Procedures Performed Operation Date: 05/10/22 07:30 Actual Procedures p Right Carotid Endarterectomy with Bovine Patch(Right) - [facility] MD Hospital Course (1) Stenosis of right internal carotid artery: Patient is doing well after carotid enterectomy. We will discharge her today on extra strength Tylenol for her headaches. We will see her in the office in 2 weeks for follow-up. Total Time Total Time Spent Total Time Spent (In Minutes): 0 Discharge Plan Discharge Items Patient Disposition: Home - Self-Care Reason For Visit: Right Internal Carotid Artery Stenosis Discharge Diagnosis: Right internal carotid artery stenosis, post carotid endarterectomy Activity: Per Instructions section Bathing Comment: May shower Non-emergency contact: Surgeon Call non-emergency contact if: your temperature is above 101.5, your wound has increased redness, your wound has increased drainage and your wound pain has increased Follow-up/Referrals: Mo Hobbs, [Primary Care Provider] - Diet: Heart Healthy Addtl Attending Provider Instructions: SPECIAL CARE INSTRUCTIONS: Medications: * Continue to take Aspirin as directed May take 2 extra strength Tylenol every 8 hours for pain/headache. Incision Care: * You may shower, but do not rub incision. You may let the warm soapy water run over it. Be sure to dry the incision well after bathing. * Do not shave directly over the incision until it is healed. * DO NOT IMMERSE THE INCISION IN A TUB/POOL/etc. UNTIL HEALED. Restrictions: * Do not drive for at least one week or if you are still taking any narcotic pain medication. * Do not lift anything heavier than a gallon of milk for one week after going home. Possible Complications: * Numbness - It is normal to have some numbness around the incision. Numbness can extend beyond the incision to areas of the neck, ear and face. The numbness is due to bruising of nerves during the surgery and will gradually improve over a period of months. * Hoarseness/Difficulty Speaking and Swallowing - The bruising of nerves in the neck can also cause a hoarse voice, difficulty speaking or swallowing. This may improve over time, HOWEVER, if it continues for more than a few days please contact our office ([phone]). * Excessive Swelling - There will be some swelling immediately after surgery which usually resolves within one week. If you notice that the swelling is getting worse, notify your surgeon ([phone]). * Drainage/Bleeding - If there is any drainage or bleeding, it should be a very small amount (less than a teaspoon per day). If you have excessive bleeding or drainage from the incision, call your surgeon ([phone]) right away. ACTIVATION OF EMERGENCY MEDICAL SYSTEM: Call 911, immediately, if you experience any of the following: Warning Signs and Symptoms of Stroke: * Sudden numbness or weakness of the face, arm or leg, especially on one side of the body * Sudden confusion, trouble speaking or understanding * Sudden trouble seeing in one or both eyes * Sudden trouble walking, dizziness, loss of balance or coordination * Sudden severe headache with no cause Do not delay calling 911 if you experience any warning signs or symptoms of a stroke. Delay in seeking medical attention may affect what treatments can be given to you. Risk Factors for Stroke: You can reduce your chances of stroke by working with your medical provider to adopt a healthy lifestyle. Some specific ways to lower your chance of stroke are: * If you are a smoker, now is the time to stop smoking cigarettes * If you are diabetic, improve the control of your blood sugars * Avoid excessive amounts of alcohol * Control high blood pressure * Lose weight if you are overweight * Be sure to lead an active lifestyle * Eat a healthy diet low in salt, cholesterol and fat You should know about other risk factors for stroke that you are unable to control. These include: * Age 55 years or older * Male gender * Certain racial groups: , or / * Family History of Stroke, Mini stroke or Heart Attack * Sickle Cell Disease You will be receiving a call from the Vascular Surgery Nurse after you are discharged. FOLLOW UP VISIT: It is important for you to keep your follow up appointments with your medical provider. Keep any scheduled doctor appointments. Call [phone] to schedule a follow up appointment if one not already scheduled. Pending Studies at Discharge: No Stand-Alone Forms: My [employer], Smoking Cessation Medications and DC Order Prescriptions: Continued atorvastatin 40 mg tablet 40 mg PO QPM aspirin 81 mg Tablet,Delayed Release (Dr/Ec) 81 mg PO QAM Qty: 0 0RF lisinopril 5 mg tablet 5 mg PO QAM Qty: 30 0RF propranolol 10 mg tablet 10 mg PO BID Qty: 60 0RF Discharge Orders: Discharge Order (Routine); Ordered 05/12/22 Ordered By: [facility] Admission Data Admit Date/Time: 05/10/22 09:23 Attending Provider: [facility] Admit Provider: [facility] Primary Care Provider: Mo Hobbs Other Providers: Elie Longo ; Naren Gray ; Jeffery Lovelace ; Mahendra Beach ; Niko Pitts ; Brian James ; Marge Reed ; Mina Avila ; Misa Kyle
== END 2022-05-12 17:00 | disposition home or self-care (01) | DRG 39 ==
LOC: ASU 05:38 → 1E 09:23 → 3W 05-11 12:36